=== PATIENT | male | born 1980 | race Caucasian/White ===

== ENCOUNTER 2023-02-27 12:00 | Outpatient (OUT) | payer OTHER, SELFPAY ==
[2023-02-27 13:06] LABS: Basophils Percent Auto 0.7 % (0.2-2.0); Eosinophils Absolute Auto 0.2 10^3/uL (0.0-0.7); Eosinophils Percent Auto 3.3 % (0.9-7.0); Hematocrit 44.4 % (42.0-54.0); Hemoglobin 15.1 g/dL (14.0-18.0); Immature Granulocytes Abs Auto 0.01 10^3/uL (0.00-0.03); Immature Granulocytes Pct Auto 0.2 % (0.0-0.5); Lymphocytes Absolute Auto 1.3 10^3/uL (1.2-3.8); Lymphocytes Percent Auto 24.3 % (20.5-60.0); Mean Corpuscular Hemoglobin 31.5 pg (25.9-34.0); Mean Corpuscular Volume 92.5 fL (80.0-94.0); Mean Platelet Volume 11.6 fL (9.5-13.5); Monocytes Absolute Auto 0.5 10^3/uL (0.3-0.8); Monocytes Percent Auto 8.3 % (1.7-12.0); Neutrophils Absolute Auto 3.4 10^3/uL (1.4-6.5); Neutrophils Percent Auto 63.2 % (43.0-75.0); Platelet Count 170 10^3/uL (150-450); Red Cell Distribution Width 13.3 % (11.0-15.0); White Blood Count 5.4 10^3/uL (4.0-11.0)
[2023-02-27 15:49] LABS: Estimated Average Glucose 108 mg/dL; Glycohemoglobin A1C 5.4 % (4.5-6.2)
[2023-02-27 15:55] LABS: Alanine Aminotransferase 42 U/L (16-63); Albumin Globulin Ratio 1.4; Albumin Level 4.2 g/dL (3.4-5.0); Alkaline Phosphatase 66 U/L (46-116); Anion Gap 13.4; Aspartate Amino Transferase 32 U/L (15-37); BUN Creatinine Ratio 14.3; Bilirubin Total 0.4 mg/dL (0.2-1.0); Calcium 8.5 mg/dL (8.5-10.1); Carbon Dioxide 25.5 mmol/L (21.0-32.0); Chloride 102 mmol/L (98-107); Cholesterol 173 mg/dL (<=200); Estimated GFR (African America >60 (>=60); Estimated GFR (Non-African Ame >60 (>=60); Globulin 3.1 g/dL; Glucose 81 mg/dL (74-106); HDL Cholesterol 88 mg/dL (40-60); Potassium 4.9 mmol/L (3.5-5.1); Sodium 136 mmol/L (136-145); Total Protein 7.3 g/dL (6.4-8.2); Triglycerides 37 mg/dL (<=150); VLDL CHOLESTEROL 7.4 mg/dL
[2023-02-27 16:15] LABS: Prostate Specific Antigen Scrn 0.31 ng/mL (<=4.00)
== END 2023-02-27 12:01 | disposition home or self-care (01) ==
LOC: LAB 12:02
PROVIDERS: PCP Family Medicine; Visit Provider Family Medicine
DX: Z00.00 Encounter for general adult medical examination without abnormal findings (principal); Z12.5 Encounter for screening for malignant neoplasm of prostate
CPT/HCPCS: 36415; 80053; 80061; 83036; 85025; G0103

== ENCOUNTER 2023-10-28 11:07 | Outpatient (OUT) | payer OTHER, SELFPAY ==
--- NOTE | 2023-10-28 | XR_ITS ---
The [address] [address] Patient Name: LUCAS ARMENDARIZ MRN: [id number] date: 1980 Sex: M Assigned Patient Location: Current Patient Location: Accession/Order Number: [id number] Exam Date: 10/28/2023 11:15 Report Date: 10/28/2023 11:52 At the request of: MAIRE GONZALES Procedure: XR foot BRAD min 3V EXAMINATION: XR foot BARD min 3V HISTORY: BILATERAL FOOT PAIN COMPARISON: 08/07/2020 FINDINGS: RIGHT FINDINGS: BONES: Transverse lucency proximal diaphysis of the first distal phalanx with some minimal sclerosis, this appears to be complex with a component extending to the proximal articular surface. No additional fracture or dislocation. Partial flattening of the plantar arch. Evidence of removed ankle fixation hardware with a screw fragment in the distal tibia SOFT TISSUES: Negative. No visible soft tissue swelling. OTHER: Negative. LEFT FINDINGS: BONES: No acute fracture or dislocation. Partial flattening of the plantar arch. Degenerative changes with joint space narrowing and marginal osteophyte formation most significant in the midfoot SOFT TISSUES: Negative. No visible soft tissue swelling. OTHER: Negative. XR/XR foot BRAD min 3V IMPRESSION: RIGHT CONCLUSION: Subacute fracture of first distal phalanx with likely extension to the proximal articular surface LEFT CONCLUSION: No acute abnormality Electronically authenticated by: MACARIO COE Date: 10/28/2023 11:52
--- OUTSIDE RECORDS SUMMARY | 2023-10-28 11:16 | XMS_ITS ---
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 Name Role Phone ETHAN, DR CONTRERAS Admitting Unavailable ETHAN, DR CONTRERAS Attending Unavailable ETHAN, DR CONTRERAS Consulting Unavailable ETHAN, DR CONTRERAS Primary Care Unavailable BAYLEE MOORE Attending Unavailable CAROLIN, DR MACARIO Dennis Consulting Unavailable BAYLEE MOORE Admitting Unavailable ETHAN, DR CONTRERAS Primary Care Unavailable BAYLEE MOORE Consulting Unavailable ETHAN, DR CONTRERAS Primary Care Unavailable ETHAN, DR CONTRERAS Admitting Unavailable ETHAN, DR CONTRERAS Attending Unavailable ETHAN, DR CONTRERAS Consulting Unavailable CAROLIN, DR MACARIO Dennis Consulting Unavailable EILEEN MELCHOR Consulting Unavailable ETHAN, DR CONTRERAS Primary Care Unavailable ETHAN, DR CONTRERAS Admitting Unavailable ETHAN, DR CONTRERAS Attending Unavailable COCO HERNANDEZ Admitting Unavailable ETHAN, DR CONTRERAS Primary Care Unavailable COCO HERNANDEZ Attending Unavailable COCO HERNANDEZ Consulting Unavailable ETHAN, DR CONTRERAS Admitting Unavailable ETHAN, DR CONTRERAS Attending Unavailable ETHAN, DR CONTRERAS Consulting Unavailable ETHAN, DR CONTRERAS Primary Care Unavailable Baylee Ureña Unavailable NA Ureña Attending Provider [phone] ALEX LEW Attending Unavailable MIKE PERES Admitting Unavailable MIKE PERES Attending Unavailable MIKE PERES Attending Unavailable MIKE PERES Attending Unavailable MIKE PERES Attending Unavailable MIKE PERES Attending Unavailable MD Diane Davis Primary Care Provider [phone] NATAN Stratton Attending Provider [phone] BAYLEE LAWS Attending Unavailable MIKE PERES Referring Unavailable DENIS DELATORRE Attending Unavailable HUMPHREY CASTELLON Attending Unavailable MIKE PERES Referring Unavailable BRIAN CARBAJAL Attending Unavailable MIKE PERES Referring Unavailable HUMPHREY CASTELLON Attending Unavailable MIKE PERES Referring Unavailable YUMIKO BOYD Attending Unavailable MIKE PERES Referring Unavailable REJI REYNOLDS Attending Unavailable MIKE PERES Referring Unavailable Ellen Stratton Admitting Unavailable Ellen Stratton Attending Unavailable Diane Davis Primary Care Unavailable Allergies Allergy Classification Reported Allergen(s) Allergy Type Date of Onset Reaction(s) Facility Corticosteroids (1 source) predniSONE Drug Allergy 10-20-2023 [facility] Repository (2 sources) predniSONE; Translations: [PREDNISONE] Drug Allergy 03-18-2023 [facility] Repository Encounters Encounter Date Encounter Type Care Provider Facility Start: 10-21-2023 End: 10-21-2023 ambulatory DENIS DELATORRE Not Available Start: 10-20-2023 End: 10-20-2023 ambulatory MD Diane Davis Work Phone: [facility] Work Phone: Start: 10-20-2023 End: 10-20-2023 Patient encounter procedure MD Diane Davis Work Phone: [facility] Work Phone: Start: 05-14-2023 End: 05-14-2023 ambulatory MIKE Talley [facility] Start: 04-23-2023 End: 04-23-2023 ambulatory REJI REYNOLDS Not Available Start: 04-19-2023 End: 04-19-2023 ambulatory YUMIKO BOYD Not Available Start: 04-16-2023 End: 04-16-2023 ambulatory HUMPHREY CASTELLON Not Available Start: 04-13-2023 End: 04-13-2023 ambulatory MIKE Talley [facility] Start: 04-08-2023 End: 04-08-2023 ambulatory HUMPHREY CASTELLON Not Available Start: 04-02-2023 End: 04-02-2023 ambulatory BAYLEE LAWS Not Available Start: 03-29-2023 End: 03-29-2023 ambulatory MIKE Talley [facility] Start: 12-08-2022 End: 12-08-2022 ambulatory MIKE Talley [facility] Start: 09-13-2022 Office outpatient vi sit 15 minutes Baylee Ureña [facility] Start: 09-13-2022 End: 09-13-2022 ambulatory Baylee Ureña Other [facility] Other Start: 09-13-2022 End: 09-13-2022 Patient encounter procedure TEST DESK TROUBLE LOCATOR-C Baylee Ureña Work Phone: [facility] Work Phone: Start: 07-21-2022 End: 07-21-2022 ambulatory MIKE PERES [facility] Start: 05-20-2022 ambulatory ALEX LEW [facility] Start: 03-20-2022 End: 03-21-[address] DIANE DAVIS Facility:[facility] Start: 02-10-2022 End: 04-15-[address] DIANE DAVIS Facility:[facility] Start: 01-26-2022 End: 01-27-2022 ambulatory BAYLEE MOORE Facility:[facility] Start: 12-29-2021 Encounter for genera l adult medical examination without abnormal findings DR DIANE DAVIS [facility] Start: 12-27-2021 End: 12-28-[address] DIANE DAVIS Facility:[facility] Start: 12-27-2021 End: 12-28-2021 Encounter for general adult medical examination without abnormal findings DR DIANE DAVIS Facility:[facility] Start: 09-27-2021 End: 09-27-2021 ambulatory COCO HERNANDEZ Facility:[facility] Start: 05-09-2021 End: 05-09-[address] DIANE DAVIS Facility:[facility] Medications Current Medications Medication Drug Class(es) Dates Sig (Normalized) Sig (Original) 200 actuat albuterol 0.09 mg/actuat dry powder inhaler (1 source) beta2-Adrenergic Agonist Start: 10-20-2023 Albuterol Sulfate Active 1 INH INHALATION EVERY 4-6 HOURS October 20, 2023 12:00am lidocaine 0.05 mg/mg medicated patch (1 source) Antiarrhythmic, Amide Local Anesthetic Start: 09-13-2022 Lidocaine 5 % 1 patch remove after 12 hours Externally Once a day for 10 days August, Active Payers Date Payer Category Payer Self-pay [id number] 1980 Unknown [id number] 2.16.84 [id number] 1980 Unknown [id number] 2.16.84 0.1.019028.3.579.2.593 1980 Unknown [id number] 2.16.84 0.1.618698.3.579.2.593 1980 Unknown [id number] 2.16.84 0.1.611528.3.579.2.593 1980 Unknown [id number] 2.16.84 0.1.219727.3.579.2.593 1980 Unknown [id number] 2.16.84 0.1.923201.3.579.2.593 1980 Unknown [id number] 2.16.84 0.1.714730.3.579.2.1259 1980 Unknown [id number] 2.16.840 .1.749759.3.579.2.1259 1980 Unknown [id number] 2.16.840 .1.368163.3.579.2.9 1980 Unknown [id number] 2.16.840 .1.611174.3.579.2.1258 1980 Unknown [id number] 2.16.840 .1.680449.3.579.2.1259 1980 Unknown [id number] 2.16.840 .1.971275.3.579.2.1258 1980 Unknown [id number] 2.16.840 .1.841592.3.579.2.1259 1959 Private Health Insurance [id number] Unknown [id number] 2.16.8 40.1.982917.3.579.2.531 Plan of Treatment Date Care Activity Detail Author Start: 10-20-2023 Patient referral [facility] Work Phone: Patient referral [facility] Work Phone: XR Foot - right GE 3 Views F [facility] Problems Active Problems Problem Classification Problem Date Documented Date Episodic/Chronic Fracture of lower limb (2 sources) Fracture of great toe ; Translations: [Displaced unspecified fracture of right great toe, initial encounter for closed fracture] 10-20-2023 Episodic Osteoarthritis (3 sources) Primary osteoarthritis, left elbow; Translations: [PRIMARY OSTEOARTHRITIS LEFT ELBOW] Onset: 03-28-2022 Chronic Other connective tissue disease (4 sources) Medial epicondylitis, left elbow; Translations: [MEDIAL EPICONDYLITIS LEFT ELBOW] Onset: 01-26-2022 Episodic Other fractures (1 source) Multiple fractures of ribs, left side, initial encounter for closed fracture Episodic Other injuries and conditions due to external causes (1 source) Injury of right foot; Translations: [Unspecified injury of right foot, initial encounter] 10-20-2023 Episodic Other lower respiratory disease (1 source) Pleurodynia Episodic Other non-traumatic joint disorders (4 sources) Pain in left elbow; Translations: [PAIN IN LEFT ELBOW] Onset: 03-20-2022 Episodic Other non-traumatic joint disorders (4 sources) Pain in unspecified elbow; Translations: [PAIN IN UNSPECIFIED ELBOW] Onset: 02-10-2022 Episodic Residual codes; unclassified (2 sources) Other specified postprocedural states; Translations: [Other specified postprocedural states] Onset: 05-14-2023 Episodic Unclassified (3 sources) CONTACT W/AND (SUSP) EXPOS COVID-19; Translations: [CONTACT W/AND (SUSP) EXPOS COVID-19] Onset: 05-15-2021 Past or Other Problems Problem Classification Problem Date Documented Da te Episodic/Chronic Other aftercare (1 source) Other joint terminal attack controller (current) drug therapy; Translations: [OTH FDC CURRENT DRUG THERAPY] Onset: 09-30-2021 Episodic Other connective tissue disease (3 sources) Pain in left finger(s); Translations: [PAIN IN LEFT FINGERS] Onset: 09-27-2021 Episodic Other screening for suspected conditions (not mental disorders or infectious disease) (1 source) Encounter for screening for malignant neoplasm of prostate; Translations: [ENC SCREEN MALIG NEOPLASM PROSTATE] Onset: 12-29-2021 Episodic Skin and subcutaneous tissue infections (1 source) Cellulitis of left finger; Translations: [CELLULITIS OF LEFT FINGER] Onset: 09-30-2021 Episodic Unclassified (1 source) CONTACT W/AND (SUSP) EXPOS COVID-19; Translations: [CONTACT W/AND (SUSP) EXPOS COVID-19] Onset: 05-09-2021 Procedures Date Procedure Procedure Detail Performing Clinician Start: 10-20-2023 X-ray of right foot MD Diane Davis Work Phone: Start: 09-13-2022 Plain chest X-ray TEST DESK TROUBLE LOCATOR-Rufina Ureña Work Phone: Start: 05-20-2022 Follow-up visit Follow-up ALEX LEW Start: 12-27-[address] COOPER DAVIS Comment on above: Performed By: #### P [facility] #### [facility] [address] [place] [address] Dr. Little Lindsay Results Test Name Value Interpretation Reference Range Facility XR foot RT min 3V*on 024 XR foot RT min 3V* [facility] [place] [address] [place] [address] XRay Report Signed Patient: Lucas Lewis MR#: [id number] : 1980 Acct:[id number] Age/Sex: 42 / M ADM Date: 10/20/23 Loc: XDUCLY Room: Type: [facility] Attending Dr: Ellen Stratton APRN Copies to: Ellen Stratton APRN Ordering Provider: Ellen Stratton APRN Date of Service: 10/20/23 XR/XR foot RT min 3V*: RIGHT FOOT PAIN RIGHT FOOT - 4 views CLINICAL HISTORY: Injury to right great toe last night. Now with pain and bruising COMPARISON: None FINDINGS: Soft tissue swelling is seen involving the first digit with a minimally displaced fracture involving the distal phalanx of the first digit. No additional fractures are seen. Retained hardware is seen involving the distal tibia. XR/XR foot RT min 3V* IMPRESSION: MINIMALLY DISPLACED FRACTURE DISTAL PHALANX FIRST DIGIT. Impression dictated by: Keshav Her Jr., D.OSasha10/20/2023 4:45 PM Dictation Location: [place] [address] Transcribed By: [facility] 10/20/231644 Dictated By: Keshav Her Jr, DO 10/20/231643 Signed By: 10/20/231644 [facility] Follow-Upon 05-14-2023 Follow-Up [id number] Lucas Lewis 1980 M Date Provider Department Center 05/14/2023 [facility]KE AN[facility] Family History Problem Relation Age of Onset Diabetes Mother Hypertension Father Colon cancer Father Family Status - Relation Status Age at Mother Alive Father Alive Level of Service:24786 IN POSTOP FOLLOW UP VISIT RELATED TO ORIGINAL PX (GC) Reason for Visit and Comments: Follow-up [203848] [facility] Follow-Upon 04-13-2023 Follow-Up [id number] Lucas Lewis 1980 M Date Provider Department Center 04/13/2023 MIKE ANNA [facility] Family History Problem Relation Age of Onset Diabetes Mother Hypertension Father Colon cancer Father Family Status - Relation Status Age at Mother Alive Father Alive Level of Service:07534 IN POSTOP FOLLOW UP VISIT RELATED TO ORIGINAL PX [facility] HPon 03-29-2023 History Of Present Illness Lucas Lewis is a 42 y.o. male presenting with left elbow pain and mechanical block to extension. Failed conservative treatment. Presents for left elbow arthroscopy with extensive debridement. Past Medical History He has a past medical history of Asthma, OA (osteoarthritis), Unspecified internal derangement of left knee, and Wedge compression fracture of fourth lumbar vertebra, initial encounter for closed fracture ([facility]). Surgical History He has a past surgical history that includes Ankle surgery (Right); Hand surgery (Right); and Knee surgery (Left). Social History He reports that he has never smoked. He has never been exposed to tobacco smoke. He has never used smokeless tobacco. He reports current alcohol use. He reports that he does not use drugs. Family History Family History Problem Relation Name Age of Onset Diabetes Mother Hypertension Father Colon cancer Father Allergies Prednisone Medications Medications Prior to Admission Medication Sig Dispense Refill Last Dose albuterol 90 mcg/actuation inhaler Inhale 2 puffs every 4 (four) hours if needed. 03/29/2023 Review of Systems Last Recorded Vitals Visit Vitals BP 125/81 Pulse 70 Temp 36.1 ???C (97 ???F) (Temporal) Resp 18 Ht 1.829 m (6') Wt 96 kg (211 lb 10.3 oz) SpO2 94% BMI 28.70 kg/m??? Smoking Status Never BSA 2.21 m??? Physical Exam Left elbow: Skin intact ROM: 20 degrees short of full extension. Near full flexion and pronosupination Strength: 5/5 biceps, triceps Grossly stable Sensation intact to light touch distally Relevant Imaging Results Where: [place] Date: 05/01/2022 MRI left elbow: No obvious loose body appreciated in the elbow joint. There are some mild degenerative changes about the elbow and a large osteophyte about the olecranon. There does appear to be a chondral irregularity about the capitellum which could present a chondral defect Assessment/Plan Principal Problem: Primary osteoarthritis, left elbow Plan: To OR for left elbow arthroscopy, extensive debridement [facility] NURSNOTEon 03-29-2023 NURSNOTE Discharge instructions reviewed with patient father at bedside. All questions answered at this time. Nara Muniz RN PACU Normal [facility] OPNOTEon 03-29-2023 OPNOTE ELBOW ARTHROSCOPY, EXTENSIVE DEBRIDEMENT (L) Operative Note Date: 03/29/2023 Location: [facility] OR Name: Lucas Lewis : 1980, Diagnosis Pre-op Diagnosis * Primary osteoarthritis, left elbow [M19.022] Post-op Diagnosis * Primary osteoarthritis, left elbow [M19.022] Procedures Left elbow arthroscopy, debridement of radiocapitellar joint, debridement of posterior compartment, excision of olecranon and distal humerus (anterior and posterior) osteophytes ELBOW ARTHROSCOPY, EXTENSIVE DEBRIDEMENT 67510 - IN ARTHROSCOPY ELBOW SURGICAL DEBRIDEMENT EXTENSIVE Surgeons * Mike Peres - Primary Lift Driver: Georges Alfonso MD - resident Procedure Summary Anesthesia: General ASA: I Estimated Blood Loss: Minimal Total IV Fluids: per anesthesia record Drains: * None in log * Staff: Trust Manager Assistant: Shila Felix RN Scrub Person: Susan Díaz Fanniepriscilla Trust Manager Assistant: HEYDI RAMOS Indications: Lucas Lewis is an 42 y.o. male who is having surgery for Primary osteoarthritis, left elbow [M19.022]. Main complaint is loss of terminal extension with pain associated. Failed conservative treatment. Exam shows range of motion 20 degrees from full extension. MRI shows significant posterior compartment osteophyte blocking extension. As his main complaint is loss of extension, we discussed surgical intervention with left elbow arthroscopy, extensive debridement. Risks of bleeding, infection, damage to nerves/vessels, anesthesia, failure of repair, retear, stiffness, instability, permanent pain/dysfunction, and the need for further surgery were discussed. Alternatives to surgery were discussed. Post operative course was discussed. All questions were answered. After discussed, the patient elected to proceed. Informed consent was obtained in clinic. Procedure Details: The patient was identified in the preoperative area and the operative site was marked by myself. He was taken by anesthesia for regional nerve block and then to the operative theater and placed in the supine position where general anesthesia was induced without complication. Preoperative antibiotics were administered. He was then placed in the prone position and all bony prominences were well-padded. EPC cuffs were placed. The left upper extremity was prepped and draped in the usual sterile fashion and a proper timeout was done. We began with exsanguination of the left upper extremity and tourniquet was inflated to 250 mmHg. 30 cc of saline was used to insufflate the elbow joint. A anterior medial portal incision was made and hemostats were used to dissect soft tissue. The cannula was then advanced into the anterior compartment of the elbow joint. Under spinal needle guidance an anterior lateral portal incision was made and cannula was advanced. Diagnostic arthroscopy was undertaken. The radiocapitellar joint was visualized and there was full-thickness chondral loss of the majority of the proximal radial head. There was fraying of the capitellum. Mechanical shaver was utilized to debride the fraying back to stable edges. We then visualized the lateral compartment and there was no significant osteophyte of the coronoid. There was an osteophyte of the distal humerus anteromedially and a bur was used to debride this. We then turned our attention to the posterior compartment. Posterior central portal incision was made and camera was advanced. We visualized the olecranon which had significant osteophyte blocking extension. There is also significant osteophyte of the olecranon fossa which was impeding full extension. A posterior lateral lateral accessory portal was made under spinal needle guidance and a bur was utilized to debride the osteophytes of the olecranon and the olecranon fossa and this improved range of motion significantly. Bony debris was removed. At this point the elbow was drained of excess fluid all instruments were removed. The portal incisions were closed with Novafil suture sterile dressing was placed. Tourniquet was deflated. The patient was returned to the supine position extubated without complication taken to PACU in stable condition. All needle sponge counts were correct x2 paraspinals, participated all critical portions of the procedure available otherwise to assist. Postoperative course: Patient be discharged home, weightbearing as tolerated to the left upper extremity. Be given [place] for pain control. We will start physical therapy in 4 days for range of motion and strengthening. I will see him back in clinic for suture removal and 7 to 10 days. Findings: radiocapitellar arthritis, osteophyte of the anterior humerus, olecranon, olecranon fossa Complications: None; patient tolerated the procedure well. Disposition: PACU - hemodynamically stable. Condition: stable Mike Peres [facility] POCT GLUCOSE METER UNSOLICIT ED RESULTSon 03-29-2023 Glucose [Mass/Vol] 91 mg/dL Normal 70-105 [facility] Comment on above: Order Comment: Waive d Testing in the ED is performed under the ED CLIA certificate #[id number]. Result Comment: ngro [place] Performed By: #### L [id number] ####[facility] [place] [address] Orders Onlyon 03-22-2023 Orders Only [id number] Lucas Lewis 1980 M Date Provider Department Center 03/22/2023 Alex-MIKE PERES [facility] Family History Problem Relation Age of Onset Diabetes Mother Hypertension Father Colon cancer Father Family Status - Relation Status Age at Mother Alive Father Alive [facility] Follow-Upon 12-08-2022 Follow-Up [id number] Lucas Lewis 1980 M Date Provider Department Center 12/08/2022 Alex-MIKE PERES [facility] Family History Problem Relation Age of Onset Diabetes Mother Hypertension Father Colon cancer Father Family Status - Relation Status Age at Mother Alive Father Alive Level of Service:08974 IN OFFICE/OUTPATIENT ESTABLISHED MOD MDM 30-39 MIN (57,GC) Reason for Visit and Comments: Pre-op Visit [558] [facility] XR ribs LT min 3V w CXR1V*on 09-13-2022 XR ribs LT min 3V w CXR1V* [facility] BTC.sx Other XR ribs LT min 3V w CXR1V* [facility] BTC.sx Other XR ribs LT min 3V w CXR1V* [address] [place] [address] BTC.sx Other XR ribs LT min 3V w CXR1V* [place] [address] BTC.sx Other XR ribs LT min 3V w CXR1V* XRay Report BTC.sx Other XR ribs LT min 3V w CXR1V* Signed BTC.sx Other XR ribs LT min 3V w CXR1V* Patient: Lucas Lewis MR#: [id number] BTC[employer]sx Other XR ribs LT min 3V w CXR1V* : 1980 Acct:[id number] BTC.sx Other XR ribs LT min 3V w CXR1V* Age/Sex: 41 / M ADM Date: 09/13/22 BTC.sx Other XR ribs LT min 3V w CXR1V* Loc: XDUCLY Room: Type: [facility] BTC.sx Other XR ribs LT min 3V w CXR1V* Attending Dr: Baylee Ureña TEST DESK TROUBLE LOCATOR-C BTC.sx Other XR ribs LT min 3V w CXR1V* Copies to: NA Figueredo BTC.sx Other XR ribs LT min 3V w CXR1V* Ordering Provider: NA Figueredo BTC.sx Other XR ribs LT min 3V w CXR1V* Date of Service: 09/13/22 BTC.sx Other XR ribs LT min 3V w CXR1V* XR/XR ribs LT min 3V w CXR1V*: LEFT RIB PAIN BTC.sx Other XR ribs LT min 3V w CXR1V* XR ribs LT min 3V w CXR1V* 09/13/2022 2:14 PM BTC.sx Other XR ribs LT min 3V w CXR1V* SIGNS AND SYMPTOMS: Fall onto left side, pain over the anterior and lateral left lower ribs BTC.sx Other XR ribs LT min 3V w CXR1V* PROTOCOL: Frontal radiograph of the chest with oblique radiographs of the left ribs BTC.sx Other XR ribs LT min 3V w CXR1V* COMPARISON: None BTC.sx Other XR ribs LT min 3V w CXR1V* FINDINGS: BTC.sx Other XR ribs LT min 3V w CXR1V* The trachea is midline. The heart and mediastinal structures are within normal limits. The lung BTC.sx Other XR ribs LT min 3V w CXR1V* parenchyma is clear. Minimally displaced fractures are noted along the anterior aspects of the left BTC.sx Other XR ribs LT min 3V w CXR1V* ninth through 11th ribs near the costochondral junction. BTC.sx Other XR ribs LT min 3V w CXR1V* XR/XR ribs LT min 3V w CXR1V* BTC.sx Other XR ribs LT min 3V w CXR1V* IMPRESSION: BTC.sx Other XR ribs LT min 3V w CXR1V* Minimally displaced fractures are noted along the anterior aspects of the left ninth through 11th BTC.sx Other XR ribs LT min 3V w CXR1V* ribs near the costochondral junction. BTC.sx Other XR ribs LT min 3V w CXR1V* Impression dictated by: Zachariah Krause M.D.09/13/2022 2:22 PM BTC.sx Other XR ribs LT min 3V w CXR1V* Dictation Location: [place] [address] BTC.sx Other XR ribs LT min 3V w CXR1V* Transcribed By: PWS 09/13/22 [facility] BTC.sx Other XR ribs LT min 3V w CXR1V* Dictated By: Zachariah Krause II, MD 09/13/22 [facility] BTC.sx Other XR ribs LT min 3V w CXR1V* Signed By: BTC.sx Other XR ribs LT min 3V w CXR1V* 09/13/22 [facility] BTC.sx Other Office Visiton 07-21-2022 Follow-up visit [id number] Lucas Lewis 1980 M Date Provider Department Center 07/21/2022 MIKE ANNA [facility] Family History Problem Relation Age of Onset Diabetes Mother Hypertension Father Colon cancer Father Family Status - Relation Status Age at Mother Alive Father Alive Level of Service:06730 IN OFFICE/OUTPATIENT ESTABLISHED MOD MDM 30-39 MIN (25,GC) Reason for Visit and Comments: Pain [136] Normal [facility] 36on 06-22-2022 36 Pt called stated he has not heard anything yet from Dr. Peres and wants to know what to do [facility] 36on 06-01-2022 36 Pt notified [facility] 36on 05-29-2022 36 Pt called wanting to know what his next step of care would be? [facility] Telephoneon 05-29-2022 Telephone [id number] Lucas Lewis 1980 M Date Provider Department Center 05/29/2022 [facility] Family History Problem Relation Age of Onset Diabetes Mother Hypertension Father Colon cancer Father Family Status - Relation Status Age at Mother Alive Father Alive Reason for Visit and Comments: plan of care [Other] [facility] Follow-Upon 05-20-2022 Follow-Up [id number] DebbieLucas 1980 M Date Provider Department Center 05/20/2022 ALEX TOMLINSON MP ORTHO MPORTHO Family History Problem Relation Age of Onset Diabetes Mother Hypertension Father Colon cancer Father Family Status - Relation Status Age at Mother Alive Father Alive Level of Service:06835 IN OFFICE/OUTPATIENT NEW LOW MDM 30-44 MINUTES Reason for Visit and Comments: Follow-up [705994] [facility] MRI ELBOW LT WO CONon 2021 MRI ELBOW LT WO CON EXAM: MRI ELBOW LT WO CON HISTORY: Pain of left elbow joint COMPARISON: Left elbow radiographs 01/26/2022 TECHNIQUE: Multiplanar, multisequence MRI of the left elbow without contrast. FINDINGS: TENDONS: Common flexor and common extensor tendons are intact. Distal biceps, brachialis, and distal triceps tendons are intact. LIGAMENTS: Anterior and posterior bands of the ulnar collateral ligament are intact. The radial collateral and lateral ulnar collateral ligaments are intact. MUSCULATURE: Normal in bulk and signal characteristics. OSSEOUS STRUCTURES AND JOINT: No acute fracture or malalignment. No bone lesion or suspicious bone marrow edema. Moderate osteoarthritis of the elbow joint with marginal osteophytes, bony remodeling, and asymmetric joint space loss most significant within the radiocapitellar joint where there is near complete cartilage loss and underlying subchondral sclerosis of the capitellum as well as subchondral bone marrow edema both within the capitellum and radial head and neck. Associated elbow joint effusion, likely reactive to osteoarthritic changes. SOFT TISSUES: No significance soft tissue edema or swelling. No focal fluid collection or soft tissue mass. NEUROVASCULAR: The ulnar nerve demonstrates normal caliber, and signal characteristics. Median and radial nerves demonstrate normal course, caliber, and signal characteristics. MISCELLANEOUS: None. IMPRESSION: Moderate osteoarthritis of the elbow joint, advanced for patient's age. Supporting ligaments and tendons of the elbow are intact. Electronically authenticated by: EILEEN MELCHOR Date: 2022-03-25 22:09 Normal [facility] XR FOREIGN BODY EYEon 2021 XR FOREIGN BODY EYE EXAMINATION: XR FOREIGN BODY EYE HISTORY: Foreign body in eye COMPARISON: No relevant comparison available. FINDINGS: ORBITS: Negative for a metallic foreign body. OTHER: Negative. IMPRESSION: No metallic foreign body in the orbits Electronically authenticated by: MACARIO COE Date: 2022-03-20 08:50 Normal [facility] CBC AUTO DIFFon 12-27-2021 BASO # 0.0 103/ul Normal 0.0-0.1 [facility] Comment on above: Performed By: #### C BC #### [facility] [address] [address] [address] Little Lindsay Basophils/100 WBC (Bld) 0.6 % Normal 0.2-2.0 [facility] Comment on above: Performed By: #### C BC #### [facility] [address] [address] [address] Little Lindsay EO # 0.0 103/ul Normal 0.0-0.7 [facility] Comment on above: Performed By: #### C BC #### [facility] [address] [address] [address] Little Lindsay Eosinophils/100 WBC (Bld) 0.5 % Critically low 0.9-7.0 [facility] Comment on above: Performed By: #### C BC #### [facility] [address] [place] [address] Dr. Little Lindsay Erythrocyte distribution width (RBC) [Ratio] 14.2 % Normal 11.0-15.0 [facility] Comment on above: Performed By: #### C BC #### [facility] [address] [place] [address] Dr. Little Lindsay Hematocrit (Bld) [Volume fraction] 44.6 % Normal 42.0-54.0 [facility] Comment on above: Performed By: #### C BC #### [facility] [address] [place] [address] Dr. Little Lindsay Hemoglobin (Bld) [Mass/Vol] 14.8 g/dL Normal 14.0-18.0 [facility] Comment on above: Performed By: #### C BC #### [facility] [address] [place] [address] Dr. Little Lindsay IG # 0.03 10e3/ul Normal 0.00-0.03 [facility] Comment on above: Performed By: #### C BC #### [facility] [address] [place] [address] Dr. Little Lindsay IG % 0.5 % Normal 0.0-0.5 [facility] Comment on above: Performed By: #### C BC #### [facility] [address] [place] [address] Dr. Little Lindsay LYMPH # 1.6 103/ul Normal 1.2-3.8 [facility] Comment on above: Performed By: #### C BC #### [facility] [address] [place] [address] Dr. Littel Lindsay Lymphocytes/100 WBC (Bld) 24.6 % Normal 20.5-60.0 [facility] Comment on above: Performed By: #### C BC #### [facility] [address] [place] [address] Dr. Little Lindsay MANUAL DIFF REQ NO Normal [facility] Comment on above: Performed By: #### C BC #### [facility] [address] [place] [address] Dr. Little Lindsay MCH (RBC) [Entitic mass] 30.8 pg Normal 25.9-34.0 [facility] Comment on above: Performed By: #### C BC #### [facility] [address] [place] [address] Dr. Little Lindsay MCHC (RBC) [Mass/Vol] 33.2 g/dL Normal 29.9-35.2 [facility] Comment on above: Performed By: #### C BC #### [facility] [address] [place] [address] Dr. Little Lindsay MCV (RBC) [Entitic vol] 92.9 fL Normal 80.0-94.0 [facility] Comment on above: Performed By: #### C BC #### [facility] [address] [place] [address] Dr. Little Lindsay MONO # 0.5 103/ul Normal 0.3-0.8 [facility] Comment on above: Performed By: #### C BC #### [facility] [address] [place] [address] Dr. Little Lindsay Monocytes/100 WBC (Bld) 6.8 % Normal 1.7-12.0 [facility] Comment on above: Performed By: #### C BC #### [facility] [address] [place] [address] Dr. Little Lindsay NEUT # 4.4 103/ul Normal 1.4-6.5 [facility] Comment on above: Performed By: #### C BC #### [facility] [address] [place] [address] Dr. Little Lindsay Neutrophils/100 WBC (Bld) 67.0 % Normal 43.0-75.0 [facility] Comment on above: Performed By: #### C BC #### [facility] [address] [place] [address] Dr. Little Lindsay Platelet mean volume (Bld) [Entitic vol] 10.8 fL Normal 9.5-13.5 [facility] Comment on above: Performed By: #### C BC #### [facility] [address] [place] [address] Dr. Little Lindsay PLT 187 103/ul Normal 150-450 [facility] Comment on above: Performed By: #### C BC #### [facility] [address] [address] [address] Little Lindsay RBC 4.80 106/ul Normal 4.70-6.10 [facility] Comment on above: Performed By: #### C BC #### [facility] [address] [place] [address] Dr. Little Lindsay WBC 6.6 103/ul Normal 4.0-11.0 [facility] Comment on above: Performed By: #### C BC #### [facility] [address] [place] [address] Dr. Little Lindsay GLYCOHEMOGLOBIN A1Con 2021 ADA RECOMMENDATION SEE BELOW Normal [facility] Comment on above: Result Comment: ADA RECOMMENDED LIMIT 4.0 - 6.0 ADA THERAPEUTIC TARGET < 7.0 ACTION SUGGESTED > 7.0 Performed By: #### A 1C #### [facility] [address] [place] [address] Dr. Little Lindsay Glucose [Mass/Vol] 111 mg/dL Normal [facility] Comment on above: Performed By: #### A 1C #### [facility] [address] [place] [address] Dr. Little Lindsay HbA1c (Bld) [Mass fraction] 5.5 % Normal 4.5-6.2 [facility] Comment on above: Performed By: #### A 1C #### [facility] [address] [place] [address] Dr. Little Lindsay LIPID PROFILEon 12-27-2021 CHOL-HDL RATIO NORM SEE BELOW Normal [facility] Comment on above: Result Comment: 3.3 - 4.4 LOW RISK 4.4 - 7.1 AVERAGE RISK 7.1 - 11.0 MODERATE RISK >11.0 HIGH RISK Performed By: #### L IPID, CMP, URIC #### [facility] [address] [place] [address] Dr. Little Lindsay Cholesterol [Mass/Vol] 195 mg/dL Normal <=200 [facility] Comment on above: Performed By: #### L IPID, CMP, URIC #### [facility] [address] [place] [address] Dr. Little Lindsay Cholesterol in HDL [Mass/Vol] 106 mg/dL Critically high 40-60 [facility] Comment on above: Performed By: #### L IPID, CMP, URIC #### [facility] [address] [address] [address] Little Lindsay Cholesterol in LDL [Mass/Vol] 83.2 mg/dL Normal [facility] Comment on above: Performed By: #### L IPID, CMP, URIC #### [facility] [address] [address] [address] Little Lindsay Cholesterol.total/Ch olesterol in HDL [Mass ratio] 1.8 {ratio} Normal [facility] Comment on above: Performed By: #### L IPID, CMP, URIC #### [facility] [address] [address] [address] Little Lindsay HDL NORMAL > or = 60 mg/dl - LOW CARDIOVASCULAR RISK <40 mg/dl - HIGH CARDIOVASCULAR RISK Normal [facility] Comment on above: Performed By: #### L IPID, CMP, URIC #### [facility] [address] [address] [address] Little Lindsay LDL CALC NORMAL SEE BELOW Normal [facility] Comment on above: Result Comment: <100 mg/dl OPTIMAL 100 - 129 mg/dl NEAR OR ABOVE OPTIMAL 130 - 159 mg/dl BORDERLINE HIGH 160 - 189 mg/dl HIGH >190 mg/dl VERY HIGH Performed By: #### L IPID, CMP, URIC #### [facility] [address] [address] [address] Little Lindsay Triglyceride [Mass/Vol] 29 mg/dL Normal <=150 [facility] Comment on above: Performed By: #### L IPID, CMP, URIC #### [facility] [address] [address] [address] Little Lindsay VLDL CALC 5.8 mg/dL Normal [facility] Comment on above: Performed By: #### L IPID, CMP, URIC #### [facility] [address] [address] [address] Little Lindsay PROF 14(COMP METB)on 022 Albumin [Mass/Vol] 4.3 g/dL Normal 3.4-5.0 [facility] Comment on above: Performed By: #### L IPID, CMP, URIC #### [facility] [address] [address] [address] Little Lindsay Albumin/Globulin [Mass ratio] 1.3 {ratio} Normal [facility] Comment on above: Performed By: #### L IPID, CMP, URIC #### [facility] [address] [address] [address] Little Lindsay ALP [Catalytic activity/Vol] 67 U/L Normal 46-116 [facility] Comment on above: Performed By: #### L IPID, CMP, URIC #### [facility] [address] [place] [address] Dr. Little Lindsay ALT [Catalytic activity/Vol] 42 U/L Normal 16-63 [facility] Comment on above: Performed By: #### L IPID, CMP, URIC #### [facility] [address] [address] [address] Little Lindsay Anion gap [Moles/Vol] 10.5 mmol/L Normal [facility] Comment on above: Performed By: #### L IPID, CMP, URIC #### [facility] [address] [place] [address] Dr. Little Lindsay AST [Catalytic activity/Vol] 22 U/L Normal 15-37 [facility] Comment on above: Performed By: #### L IPID, CMP, URIC #### [facility] [address] [address] [address] Little Lindsay Bilirubin [Mass/Vol] 0.4 mg/dL Normal 0.2-1.0 [facility] Comment on above: Performed By: #### L IPID, CMP, URIC #### [facility] [address] [place] [address] Dr. Little Lindsay Calcium [Mass/Vol] 9.1 mg/dL Normal 8.5-10.1 [facility] Comment on above: Performed By: #### L IPID, CMP, URIC #### [facility] [address] [address] [address] Little Lindsay Chloride [Moles/Vol] 102 mmol/L Normal 98-107 [facility] Comment on above: Performed By: #### L IPID, CMP, URIC #### [facility] [address] [address] [address] Little Lindsay CO2 [Moles/Vol] 28.0 mmol/L Normal 21.0-32.0 [facility] Comment on above: Performed By: #### L IPID, CMP, URIC #### [facility] [address] [address] [address] Little Lindsay Creatinine [Mass/Vol] 0.82 mg/dL Normal 0.70-1.30 [facility] Comment on above: Performed By: #### L IPID, CMP, URIC #### [facility] [address] [address] [address] Little Lindsay EGFR-AF SWEDISH 125 mL/min/1.73m2 Normal >=60 [facility] Comment on above: Performed By: #### L IPID, CMP, URIC #### [facility] [address] [address] [address] Little Lindsay EGFR-NON AF SWEDISH 104 mL/min/1.73m2 Normal >=60 [facility] Comment on above: Performed By: #### L IPID, CMP, URIC #### [facility] [address] [address] [address] Little Lindsay Globulin (S) [Mass/Vol] 3.2 g/dL Normal [facility] Comment on above: Performed By: #### L IPID, CMP, URIC #### [facility] [address] [address] [address] Little Lindsay Glucose [Mass/Vol] 107 mg/dL Critically high 74-106 [facility] Comment on above: Performed By: #### L IPID, CMP, URIC #### [facility] [address] [address] [address] Little Lindsay Potassium [Moles/Vol] 4.5 mmol/L Normal 3.5-5.1 [facility] Comment on above: Performed By: #### L IPID, CMP, URIC #### [facility] [address] [place] [address] Dr. Little Lindsay Protein [Mass/Vol] 7.5 g/dL Normal 6.4-8.2 [facility] Comment on above: Performed By: #### L IPID, CMP, URIC #### [facility] [address] [place] [address] Dr. Little Lindsay Sodium [Moles/Vol] 136 mmol/L Normal 136-145 [facility] Comment on above: Performed By: #### L IPID, CMP, URIC #### [facility] [address] [place] [address] Dr. Little Lindsay Urea nitrogen [Mass/Vol] 15.0 mg/dL Normal 7.0-18.0 [facility] Comment on above: Performed By: #### L IPID, CMP, URIC #### [facility] [address] [place] [address] Dr. Little Lindsay Urea nitrogen/Creatinine [Mass ratio] 18.3 mg/mg Normal [facility] Comment on above: Performed By: #### L IPID, CMP, URIC #### [facility] [address] [place] [address] Dr. Little Lindsay URIC ACID SERUMon 12-27-2021 Urate [Mass/Vol] 3.5 mg/dL Normal 3.5-7.2 [facility] Comment on above: Performed By: #### L IPID, CMP, URIC #### [facility] [address] [place] [address] Dr. Little Lindsay [facility]on SARS-CoV-2 (COVID-19) RNA EBEN+probe Ql (Unsp spec) Not detected Normal NOT DETECTED [facility] Comment on above: Result Comment: This test is not yet approved or cleared by the [place] FDA. When there are no FDA-approved or cleared tests available, and other criteria are met, FDA can make tests available under an emergency access mechanism called an Emergency Use Authorization (EUA). The EUA for this test is supported by the [place] of Health and Human Service's (HHS's) declaration that circumstances exist to justify the emergency use of in vitro diagnostics for the detection and/or diagnosis of the virus that causes COVID-19. This EUA will remain in effect (meaning this test can be used) for the duration of the COVID-19 declaration justifying emergency of IVDs, unless it is terminated or revoked by FDA (after which the test may no longer be used). When diagnostic testing is negative, the possibility of a false negative should be considered in the context of a patient's recent exposures and the presence of clinical signs and symptoms consistent with SARS-CoV-2. Performed By: #### C [facility] #### [facility] [address] [place] [address] Dr. Little Lindsay Social History Date Type Detail Facility Start: 06-12-2017 Tobacco smoking status NHIS Never smoked tobacco (finding) [facility] Start: 1980 Sex Assigned At Male F [facility] Unknown if ever smoked [facility] Other Sex Assigned At Sex Assigned At Bir th [facility] [employer] Other Vital Signs Date Time Vital Sign Value Performing Clinician Facility 10-20-2023 16:17-0400 Body height 182.88 cm MD Diane Davis Work Phone: [facility] 10-20-2023 16:17-0400 Body mass index (BMI) [Ratio] 27.8 kg/m2 MD Diane Davis Work Phone: [facility] 10-20-2023 16:17-0400 Body temperature 98.6 [degF] MD Diane Davis Work Phone: [facility] 10-20-2023 16:17-0400 Body weight 92.98 kg MD Diane Davis Work Phone: [facility] 10-20-2023 16:17-0400 Diastolic blood pressure 80 mm[Hg] MD Diane Davis Work Phone: [facility] 10-20-2023 16:17-0400 Heart rate 70 /min MD Diane Davis Work Phone: [facility] 10-20-2023 16:17-0400 Respiratory rate 16 /min MD Diane Davis Work Phone: [facility] 10-20-2023 16:17-0400 SaO2% (BldA) [Mass fraction] 97 % MD Diane Davis Work Phone: [facility] 10-20-2023 16:17-0400 Systolic blood pressure 127 mm[Hg] MD Diane Davis Work Phone: [facility] 09-13-2022 14:35-0400 Body height 182.88 cm Baylee Adelita Other [email or web address] Other 09-13-2022 14:35-0400 Body mass index (BMI) [Ratio] 29.35 kg/m2 Baylee Adelita Other [facility] Other 09-13-2022 14:35-0400 Body temperature 97.8 [degF] Baylee Adelita Other [facility] Other 09-13-2022 14:35-0400 Body weight 98.16 kg Baylee Adelita Other [facility] Other 09-13-2022 14:35-0400 Diastolic blood pressure 83 mm[Hg] Baylee Adelita Other [facility] Other 09-13-2022 14:35-0400 Respiratory rate 18 /min Baylee Adelita Other [email or web address] Other 09-13-2022 14:35-0400 SaO2% (BldA) [Mass fraction] 97 % Baylee Adelita Other [facility] Other 09-13-2022 14:35-0400 Systolic blood pressure 128 mm[Hg] Baylee Ureña Other [facility] [employer] Other Clinical Notes 01-26-2022 to 05-14-2023 Note Date & Type Note Facility 05-14-2023 Note Post-Operative Follo w-up: Patient here for post-op follow-up. Patient is about 7 weeks status post LEFT elbow arthroscopy, extensive debridement. Pain is 0. Pain is improved. Weight bearing status: full. 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 He states his main complaint which has been present since surgery is a tender achiness that occurs over the mobile wad of the left forearm, not present at rest, occurs if moving the elbow after not moving it for a long time or with heavier exertion. Current treatment is physical therapy DOS: 03/29/23 Surgery Procedure: left elbow arthroscopy, extensive debridement Constitutional Fever:no Drainage:no Redness:no Increased Swelling:no Physical Exam Inspection: effusion mild ROM: 5-150. Some crepitation with motion No pain reproduced at the mobile wad with resisted long finger extension, no pain with resisted supination, No TTP over the lateral epicondyle Strength: 5/5 biceps, triceps Stability: grossly stable Neurovascularly intact Incision clean, dry, intact Diagnosis Plan 1. Primary osteoarthritis, left elbow 2. History of arthroscopic surgery of elbow Lucas is a 42 year old male about 7 weeks s/p left elbow arthroscopy, extensive debridement, overall doing well. 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 -RTC on as needed basis if issues/concerns down the road Camilo Rush MD Orthopaedic Surgery, PGY-V 05/14/2023 Mike Peres MD By using the attestations below, the signing clinician agrees that I have read and verify that the documentation has been personally reviewed by me and ensure that the documentation accurately reflects the encounter. GC: I personally saw this patient on the day of the encounter, performed the escobar portion(s) of the service and participated in the management and confirm the resident's documentation. Please note there may be an additional personal documentation from me. Mike Peres MD [facility] 04-13-2023 Note Post-Operative Follo w-up: Patient here for post-op follow-up. Patient is 2 weeks status post left elbow arthroscopy, extensive debridement. Pain is 0. Pain is improved. Weight bearing status: full. Current treatment is physical therapy, val wrap. DOS: 03/29/23 Surgery Procedure: left elbow arthroscopy, extensive debridement Constitutional Fever:no Drainage:no Redness:no Increased Swelling:no Physical Exam Inspection: effusion moderate ROM: 10-150. Some crepitation with motion Stability: grossly stable Neurovascularly intact Incision clean, dry, intact. Diagnosis Plan 1. Primary osteoarthritis, left elbow Lucas is a 42 year old male 2 weeks s/p left elbow arthroscopy, extensive debridement, overall doing well. Plan Discussed clinical findings and arthroscopic images with patient Continue physical therapy per protocol Follow up one month IMike, personally performed the face to face evaluation on this patient. I discussed with the patient and confirmed the accuracy and completeness of the aforementioned history prepared by the advance practice provider, and I personally performed the clinical examination of the patient. I discussed the treatment plan with the patient. Mike Peres MD [facility] 03-29-2023 Note Patient: Lucas Lewis Procedure Summary Date: 03/29/23 Room / Location: [facility] OR [address] [place] [address] GIS OR Anesthesia Start: 728 Anesthesia Stop: 903 Procedure: ELBOW ARTHROSCOPY, EXTENSIVE DEBRIDEMENT (Left: Elbow) Diagnosis: Primary osteoarthritis, left elbow (Primary osteoarthritis, left elbow [M19.022]) Surgeons: Mike Peres MD Responsible Provider: Jane Cassidy MD Anesthesia Type: general, regional ASA Status: 1 Anesthesia Type: general, regional Vitals Value Taken Time BP 129/82 03/29/23 0930 Temp 36.2 ???C (97.2 ???F) 03/29/23 0900 Pulse 75 03/29/23 0930 Resp 18 03/29/23 0930 SpO2 100 % 03/29/23929 Anesthesia Post Evaluation Patient location during evaluation: PACU Patient participation: complete - patient participated Level of consciousness: awake Pain score: 0 Pain management: adequate Airway patency: patent Cardiovascular status: acceptable Respiratory status: acceptable Patient is hemodynamically stable and is able to be discharged from PACU per anesthesia protocol. No notable events documented. [facility] 03-29-2023 Note Patient: Lucas Lewis Procedure Summary Date: 03/29/23 Room / Location: [address] OR Anesthesia Start: 728 Anesthesia Stop: Procedure: ELBOW ARTHROSCOPY, EXTENSIVE DEBRIDEMENT (Left: Elbow) Diagnosis: Primary osteoarthritis, left elbow (Primary osteoarthritis, left elbow [M19.022]) Surgeons: Mike Peres MD Responsible Provider: Jane Cassidy MD Anesthesia Type: general, regional ASA Status: 1 Anesthesia Post Transport [facility] room air Patient Monitor: direct observation Transport: uneventful Patient condition is: stable [facility] 03-29-2023 Note Airway Date/Time: 03/29/2023 7:35 AM Urgency: elective General Information and Staff Patient location during procedure: OR Anesthesiologist: Jane Cassidy MD Resident/DEMURRAGE CLERK/CAA: TALISHA Estrada Performed: resident/DEMURRAGE CLERK/CAA Indications and Patient Condition Indications for airway management: anesthesia and airway protection Spontaneous Ventilation: absent Sedation level: deep Preoxygenated: yes Mask difficulty assessment: 1 - vent by mask Final Airway Details Final airway type: endotracheal airway Successful airway: ETT Cuffed: yes Successful intubation technique: direct laryngoscopy Endotracheal tube insertion site: oral Blade: Chilo Blade size: #4 ETT size (mm): 7.5 Cormack-Lehane Classification: grade I - full view of glottis Placement verified by: chest auscultation and capnometry Measured from: lips ETT to lips (cm): 23 Number of attempts at approach: 1 Number of other approaches attempted: 0 [facility] 03-29-2023 Note Peripheral Block Patient location during procedure: pre-op Start time: 03/29/2023 6:58 AM End time: 03/29/2023 7:14 AM Reason for block: at surgeon's request and post-op pain management Staffing Performed: resident/DEMURRAGE CLERK/CAA Resident/DEMURRAGE CLERK: Sandoval Hoyt MD Preanesthetic Checklist Completed: patient identified, IV checked, site marked, risks and benefits discussed, surgical consent, monitors and equipment checked, pre-op evaluation and timeout performed Peripheral Block Patient position: supine Prep: ChloraPrep Patient monitoring: continuous pulse ox Block type: supraclavicular brachial plexus Laterality: left Injection technique: single-shot Guidance: ultrasound guided Needle Needle gauge: 22 G Needle length: 2 in Needle localization: ultrasound guidance Medications Administered bupivacaine HCl (Marcaine) 0.5 % (5 mg/mL) injection - injection 150 mg - 03/29/2023 6:58:00 AM fentaNYL (SUBLIMAZE) IV - intravenous 100 mcg - 03/29/2023 6:58:00 AM midazolam (VERSED) IV - intravenous 2 mg - 03/29/2023 6:58:00 AM Assessment Injection assessment: negative aspiration for heme, no paresthesia on injection and incremental injection Heart rate change: no Slow fractionated injection: yes [facility] 03-29-2023 Note Patient: Lucas Lewis Procedure Information Date/Time: 03/29/23729 Procedure: ELBOW ARTHROSCOPY, EXTENSIVE DEBRIDEMENT (Left: Elbow) Location: [facility] OR [address] [place] [address] OR Surgeons: Mike Peres MD Past Medical History: Diagnosis Date ??? Asthma ??? OA (osteoarthritis) ??? Unspecified internal derangement of left knee ??? Wedge compression fracture of fourth lumbar vertebra, initial encounter for closed fracture (CMS/HCC) Relevant Problems No relevant active problems Clinical information reviewed: Tobacco Allergies Meds Med Hx Surg Hx Fam Hx Soc Hx Physical Exam Airway Mallampati: II TM distance: >3 FB Neck ROM: full Cardiovascular - normal exam Rhythm: regular Rate: normal Dental - normal exam Pulmonary - normal exam Abdominal - normal exam Anesthesia Plan ASA 1 general and regional The patient is not a current smoker. Patient was not previously instructed to abstain from smoking on day of procedure. Patient did not smoke on day of procedure. Education provided regarding risk of obstructive sleep apnea. intravenous induction Anesthetic plan and risks discussed with patient. Plan discussed with CAA. Additional Equipment Requests [facility] 03-18-2023 Note Medications to take AM day of procedure with sips water only: inhaler Medication Hold instructions: IF YOU ARE GOING HOME AFTER YOUR SURGERY OR PROCEDURE, FOR YOUR SAFETY, YOUR SURGERY WILL BE CANCELLED IF BOTH OF THE FOLLOWING ARE NOT AVAILABLE: An adult route driver over the age of 18, that can receive information about your care after surgery, and drive you home. A responsible adult to stay with you for 24 hours in case of an emergency. Can be same as above. The highest risk of complications is within the first 24 hours after sedation/anesthesia. Nothing to eat or drink after midnight the night before surgery. This includes gum, candy, mints, and lozenges. No alcohol, marijuana, or tobacco products including vaping for 24 hours. Please brush your teeth; don't swallow the toothpaste or water. If you use dentures, wear them but do not use paste. Please leave any other removable dental hardware at home. Do not put in contact lenses. Do not wear perfume, make-up, nail lithuanian, or lotions on the day of your surgery or procedure. Follow skin-prep/wipe instructions as below if required. Bring with you: *Insurance card *Photo ID *Medication list *Co-pay for visit/prescriptions If applicable: *Rescue inhalers *Green bracelet from lab *CPAP or BiPAP machine, if staying overnight *Any braces, splints, or equipment ordered preoperatively *Remote controls for implanted devices Leave at home: *Purse/Wallet/Araiza- unless needed for co-pay *Cell phone (can leave with family/friend or place in locker if needed) *Jewelry (including piercings and wedding bands) *If not possible, ask the person who is waiting with you to keep them Children under the age of 12 will not be allowed into patient care areas. We will call you between 3pm and 4pm the day before your surgery to give you an arrival time. If you do not receive this call, have any questions, or need to make any changes, please call [phone]. Notify your surgeon if you develop any illness such as a cold, cough, fever, sore throat or vomiting between now and your surgery. Thank you for entrusting us with your care. [facility] [place] Surgical Services Team [facility] 12-08-2022 Note Subjective: Chief Complaint: left elbow pain for approximately 1.5 year HPI 12/08/2022: 41 y.o. male with left elbow osteoarthritis and potential loose body who presents with chronic left elbow pain since around early 2021. He received as CSI into left elbow joint on 07/21/2022 with no relief, he found PT aided with swelling but nothing else. He endorses pain with elbow extension activities and is unable to perform push-ups as a result. He also has a popping sensation in the elbow that occurs daily. Endorses occasional numbness, tingling of the digits of L hand when driving. He did undergo NCS/EMG around 2 years ago but cannot recall significant findings 07/21/2022: 41-year-old male presents for initial evaluation with Dr. Peres for left elbow pain after referral from Dr. Lew. The patient has had this pain and decreased range of motion for approximately 1.5 years. He states there is no precipitating trauma or event that preceded this and he notes that his range of motion has improved somewhat with physical therapy however, he does continue to have pain with pushing movements with his left elbow. He denies any numbness or tingling. He also notes a clicking/popping of the elbow which is becoming somewhat less frequent but it can be painful. 05/20/22 Lucas Lewis is a 41 y.o. year old right handed male presenting for left elbow pain. The patient began having significant throbbing pain that woke him from sleep and a popping sensation in his left elbow around 6-7 months ago. Since that time, the pain has continued but has been less disruptive. The pain is worse with activity, and better with rest. It limits his activity, particularly a pushing motion. He underwent a course of physical therapy which did not relieve his pain. 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 Social History Occupational History Not on file Tobacco Use Smoking status: Never Passive exposure: Never Smokeless tobacco: Never Vaping Use Vaping Use: Never used Substance and Sexual Activity Alcohol use: Yes Drug use: Never Sexual activity: Not on file No past medical history on file. Review of systems: Constitutional: No fever or night sweats Musculoskeletal: left elbow pain Neurological: Numbness, tingling of the digits of L hand when driving, negative phalens, tinels Physical Exam: General: No acute distress Constitutional: Grossly well-appearing Mental status: Alert and oriented Respiratory: Non-labored breathing Skin: No erythema, ecchymosis, or abrasions left elbow Exam: Inspection- No edema, erythema, gross deformity Palpation- Pain over extensor surface Cozens mildy positive, Flores mildly positive, minimal pain to palpation over bilateral extensor tendons ROM- Flexion 110 degrees Extension 10 degrees Supination 85 degrees Pronation 70 degrees Stability- Varus and valgus stability Strength- Biceps 5/5 Triceps 5/5 Vascular: Brisk capillary refill Neuro: Sensation intact to light touch distally Imaging: Where: [place] Date: 05/01/2022 MRI left elbow: No obvious loose body appreciated in the elbow joint. There are some mild degenerative changes about the elbow and a large osteophyte about the olecranon. There does appear to be a chondral irregularity about the capitellum which could present a chondral defect. 41-year-old male with left elbow osteoarthritis and associated mechanical block to motion with a possible loose body Diagnosis Plan 1. Primary osteoarthritis, left elbow Plan: -discussed clinical and imaging findings -discussed treatment options. He would like to pursue surgical intervention given his persistent pain and decreased motion despite conservative treatment. This would be left elbow arthroscopy with extensive debridement. Risks of bleeding, infection, damage to nerves/vessels, anesthesia, stiffness, instability, permanent pain/dysfunction, and the need for further surgery were discussed. Alternatives to surgery were discussed. Post operative course was discussed. All questions were answered. After discussed, the patient elected to proceed. Informed consent was obtained in clinic. - If wrist extensors continue to be painful after scope may consider referral to Dr. Lew By using the attestations below, the signing clinician agrees that I have read and verify that the documentation has been personally reviewed by me and ensure that the documentation accurately reflects the encounter. GC: I personally saw this patient on the day of the encounter, performed the escobar portion(s) of the service and participated in the management and confirm the resident's documentation. Please note there may be an additional personal documentation from me. Mike Peres MD [facility] 09-13-2022 Evaluation note Encounter Date Diagnosis Assessment Notes August, Rib pain on left side (ICD-10 - R07.81) August, Closed fracture of multiple ribs of left side, initial encounter (ICD-10 - S22.42XA) Rib fracture home care material was printed Drink plenty fluids, get plenty of rest. Use the lidocaine patches as prescribed. Take Tylenol and/or Motrin as needed for pain. Follow-up with your family doctor if no improvement in 5 to 7 days BTC.sx Other 03-21-2023 NoteSubjective: Chief Complaint: left elbow pain for 1.5 years HPI 07/21/2022: 41-year-old male presents for initial evaluation with Dr. Peres for left elbow pain after referral from Dr. Lew. The patient has had this pain and decreased range of motion for approximately 1.5 years. He states there is no precipitating trauma or event that preceded this and he notes that his range of motion has improved somewhat with physical therapy however, he does continue to have pain with pushing movements with his left elbow. He denies any numbness or tingling. He also notes a clicking/popping of the elbow which is becoming somewhat less frequent but it can be painful. 05/20/22 Lucas Lewis is a 41 y.o. year old right handed male presenting for left elbow pain. The patient began having significant throbbing pain that woke him from sleep and a popping sensation in his left elbow around 6-7 months ago. Since that time, the pain has continued but has been less disruptive. The pain is worse with activity, and better with rest. It limits his activity, particularly a pushing motion. He underwent a course of physical therapy which did not relieve his pain. 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 Previous Treatments: PT Social History Occupational History Not on file Tobacco Use Smoking status: Never Passive exposure: Never Smokeless tobacco: Never Vaping Use Vaping Use: Never used Substance and Sexual Activity Alcohol use: Yes Drug use: Never Sexual activity: Not on file No past medical history on file. Review of systems: Constitutional: No fever or night sweats Musculoskeletal: left elbow pain Neurological: Negative for tingling or numbness Physical Exam: General: No acute distress Constitutional: Grossly well-appearing Mental status: Alert and oriented Respiratory: Non-labored breathing Skin: No erythema, ecchymosis, or abrasions left Elbow Exam Skin: No erythema, ecchymosis, or abrasions ROM- Flexion: 110 degrees degrees Extension: 10 degrees, pain at full extension Pronation: 70 degrees Supination: 70 degrees Strength- Biceps 5/5 Triceps 5/5 Stability- Varus stable Valgus stable Neurological exam: Sensation intact to light touch median, radial, ulnar Vascular exam: Brisk capillary refill Imaging: Where: [facility] Date: 05/01/2022 MRI left elbow: No obvious loose body appreciated in the elbow joint. There are some mild degenerative changes about the elbow and a large osteophyte about the olecranon. There does appear to be a chondral irregularity about the capitellum which could present a chondral defect. Read and interpreted by Dr. Peres Intermediate Joint: L elbow on 07/21/2022 3:42 PM Indications: pain Details: 21 G needle, posterolateral approach Medications: 2 mg lidocaine 10 mg/mL (1 %); 2 mg triamcinolone acetonide 10 mg/mL Outcome: tolerated well, no immediate complications Consent was given by the patient. 41-year-old male with left elbow osteoarthritis and associated mechanical block to motion with a possible loose body. Plan: -Corticosteroid injection administered in the left elbow joint today - We will have him follow-up this fall after the harvest if his symptoms persist for consideration of a diagnostic left elbow scope. Abundio Armendariz, PGY3 Orthopedic Surgery Resident By using the attestations below, the signing clinician agrees that I have read and verify that the documentation has been personally reviewed by me and ensure that the documentation accurately reflects the encounter. GC: I personally saw this patient on the day of the encounter, performed the secobar portion(s) of the service and participated in the management and confirm the resident's documentation. Please note there may be an additional personal documentation from me. Mike Peres MDAshtabula [facility] Center01-18-2023 NoteOrthopedic Surgery Subjective HPI Chief complaint: Chief Complaint Patient presents with Left Elbow - Follow-up Returning patient follow up of a pre-existing problem 05/20/22 Lucas Lewis is a 41 y.o. year old right handed male presenting for left elbow pain. The patient began having significant throbbing pain that woke him from sleep and a popping sensation in his left elbow around 6-7 months ago. Since that time, the pain has continued but has been less disruptive. The pain is worse with activity, and better with rest. It limits his activity, particularly a pushing motion. He underwent a course of physical therapy which did not relieve his pain. 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 Previous Treatments: PT Patient History Past Surgical History: Procedure Laterality Date ANKLE SURGERY Right HAND SURGERY Right right pinky KNEE SURGERY Left No past medical history on file. Objective There is no height or weight on file to calculate BMI. General: No acute distress, alert, comfortable HEENT: Vision intact, NC/AT, hearing intact, speaks clearly Neck: Supple, midline Cardiovascular: Grossly well perfused Respiratory: Non-labored, good air movement, good respiratory effort Psych: Cooperative, appropriate affect Skin: Warm, dry, atraumatic, capillary refill <2s Neuro: No gross neurologic deficits Extremities: Moves spontaneously x4, atraumatic, non-edematous Focused exam of left elbow: Skin: Skin: No erythema, ecchymosis, or abrasions ROM- Flexion: limited to 120 degrees Extension: limited to 20 degrees Strength- Biceps 5/5 Triceps 5/5 Stability- Varus stable, pain with varus stress of left elbow Valgus stable Neurological exam: Sensation intact to light touch median, radial, ulnar, and axillary Vascular exam: Brisk capillary refill Imaging: Radiographs of left elbow demonstrate mild degenerative changes. MRI of left elbow demonstrates possible osteochondritis dissecans. Assessment/Plan Lucas Lewis is a 41 y.o. year old right handed male with left elbow pain present for 6-7 months. The patient has mild degenerative changes on imaging as well as possible osteochondritis dissecans. - Will consult Dr. Ramachandran or Dr. Peres for possible osteochondritis dissecans Francisco Escoto, MS3 Orthopedic Surgery [facility] Patient seen and discussed with Dr. Lew As the teaching physician, I have personally performed or re-performed the history of present illness, physical exam and medical decision-making activities of the encounter and verified the medical student's documentation. I made pertinent changes as necessary to ensure accurate documentation. Additional Comments: Agree with above. I think his symptoms and the MRI findings are consistent with an osteochondritis dissecans type lesion and possibly a loose body. I discussed him with Dr. Peres and we will get in touch with him about options for further treatment.[facility] 01-26-2022 NotePROCEDURE: XR ELBOW LT MIN 3 VIEWS COMPARISON: None. HISTORY: Medial epicondylitis FINDINGS: BONES:No acute fracture or dislocation. Degenerative changes with marginal osteophyte formation SOFT TISSUES:Negative. No visible soft tissue swelling. EFFUSION:Elbow joint effusion OTHER: Negative. IMPRESSION: Mild degenerative changes with elbow joint effusion Electronically authenticated by: MACARIO COE Date: 2022-01-26 19:59[facility] noteNo assessment information availableUniversity [facility] Work Phone: Evaluation note* Diagnosis Onset Date Resolution Status Fracture of right great toe acute [facility] Work Phone: History general Narrative - Reported* Type Description Date Surgical History fracture repair Surgical History leg fracture BTC.sx Other Summary Purpose Family History No Family History Records FoundNo Family History Records FoundNo Family History Records FoundNo Family History Records Found Advance Directives No Advanced Directives Records Found Advance Directive Response Recorded Date/ Time Advance Directives No October 27 4:39pm Chief Complaint and Reason for Visit Chief Complaint right big toe w inju ry Reason for Visit Fracture of right gr eat toe Additional Source Comments (unrecognized sect ion and content) No Status Records FoundNo Status Records FoundNo Status Records FoundNo Status Records Found INFORMATION SOURCE (unrecogn ized section and content) DATE CREATED AUTHOR 04/24/2022 [facility] DATE CREATED AUTHOR AUTHOR'S ORGANIZ ATION 05/15/2023 [facility] DATE CREATED AUTHOR AUTHOR'S ORGANIZ ATION 10/23/2023 [facility] EPIC DATE CREATED AUTHOR AUTHOR'S ORGANIZ ATION 10/24/2023 [facility] REASON FOR VISIT (unrecogniz ed section and content) LEFT RIB PAIN, Care Teams (unrecognized sec tion and content) Team Status: Inactive Member Role Status Dates MABEL DietrichC Attending Provider Active Team Status: Active Member Role Status Dates Diane Davis MD Primary Care Provider Active Team Status: Inactive Member Role Status Dates Diane Davis MD Primary Care Provider Active Start: October 20, 2023 End: October 20, 2023 Ellen Stratton APRN Attending Provider Active S tart: October 20, 2023 End: October 20, 2023 Goals (unrecognized section and content) Goals may be documented in a n alternate section FOR RECORDS PERTAINING TO PATIENTS WHO ARE OR HAVE BEEN ENROLLED IN A CHEMICAL DEPENDENCY/SUBSTANCEABUSE PROGRAM, SOME INFORMATION MAY BE OMITTED. This clinical summary was aggregated from multiple sources. Caution should be exercised in using it in the provision of clinical care. This summary normalizes information from multiple sources, and as a consequence, information in this document may materially change the coding, format and clinical context of patient data. In addition, data may be omitted in some cases. CLINICAL DECISIONS SHOULD BE BASED ON THE PRIMARY CLINICAL RECORDS. [employer] provides no warranty or guarantee of the accuracy or completeness of information in this document.
== END 2023-10-28 11:08 | disposition home or self-care (01) ==
LOC: EC 11:07
PROVIDERS: PCP Family Medicine; Visit Provider Physician Assistant
DX: M79.672 Pain in left foot (principal); M79.671 Pain in right foot; S92.424A Nondisplaced fracture of distal phalanx of right great toe, initial encounter for closed fracture
CPT/HCPCS: 73630

== ENCOUNTER 2023-12-08 14:59 | Outpatient (OUT) | payer OTHER, SELFPAY ==
--- NOTE | 2023-12-08 | XR_ITS ---
The [address] [address] Patient Name: LUCAS ARMENDARIZ MRN: [id number] date: 1980 Sex: M Assigned Patient Location: Current Patient Location: Accession/Order Number: [id number] Exam Date: 12/08/2023 15:04 Report Date: 12/09/2023 07:34 At the request of: GEORGE LEE Procedure: XR ankle BRAD min 3V EXAMINATION: XR ankle BRAD min 3V HISTORY: BILATERAL ANKLE PAIN COMPARISON: No relevant comparison available. FINDINGS: RIGHT FINDINGS: BONES: Pes planus. Contour deformity of the distal fibula with calcification across the tibiofibular syndesmosis. Now removed hardware. Screw fragment identified in the distal tibial metaphysis. No acute fracture or dislocation SOFT TISSUES: Negative. No visible soft tissue swelling. OTHER: Negative. LEFT FINDINGS: BONES: No acute fracture or dislocation. Pes planus. Degenerative changes with marginal osteophyte formation most significant along the dorsal midfoot SOFT TISSUES: Negative. No visible soft tissue swelling. OTHER: Negative. XR/XR ankle BRAD min 3V IMPRESSION: Bilateral pes planus Electronically authenticated by: MACARIO COE Date: 12/09/2023 07:34
--- OUTSIDE RECORDS SUMMARY | 2023-12-08 15:16 | XMS_ITS | CCD ---
Author Organization [facility] CliniSyny Care Team Providers Care Halftone Operator Name Role Phone DR DIANE DAVIS Admitting Unavailable ETHAN, DR CONTRERAS Attending Unavailable [...] Baylee Ureña Unavailable NA Ureña Attending Provider [phone] ALEX LEW Attending Unavailable MIKE PERES Admitting Unavailable MIKE PERES Attending Unavailable MIKE PERES Attending Unavailable MIKE PERES Attending Unavailable MIKE PERES Attending Unavailable MIKE PERES Attending Unavailable MD Diane Davis Primary Care Provider [phone] NATAN Stratton Attending Provider [phone] BAYLEE LAWS Attending Unavailable MIKE PERES Referring Unavailable DENIS DELATORRE Attending Unavailable HUMPHREY CASTELLON Attending Unavailable MIKE PERES Referring Unavailable BRIAN CARBAJAL Attending Unavailable MIKE PERES Referring Unavailable HUMPHREY CASTELLON Attending Unavailable MIKE PERES Referring Unavailable YUMIKO BOYD Attending Unavailable MIKE PERES Referring Unavailable REJI REYNOLDS Attending Unavailable MIKE PERES Referring Unavailable Diane Davis Primary Care Unavailable Ellen Stratton Attending Unavailable Ellen Stratton Admitting Unavailable Allergies Allergy Classification Reported Allergen(s) Allergy Type Date of Onset Reaction(s) Facility (2 sources) predniSONE; Translations: [PREDNISONE] Drug Allergy 03-18-2023 [facility] Repository (1 source) predniSONE Drug Allergy 10-20-2023 [facility] Repository Medications Current Medications Medication Drug Class(es) Dates [...] a day for 10 days August, Active Problems Active Problems Problem Classification Problem Date [...] EPICONDYLITIS LEFT ELBOW] Onset: 01-26-2022 Episodic Other connective tissue disease (1 source) Pain in right toe(s); Translations: [Pain in right toe(s)] Onset: 10-20-2023 Episodic Other fractures (1 source) Multiple fractures [...] te Episodic/Chronic Other aftercare (1 source) 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; Translations: [OTH GROUP HOME CURRENT DRUG THERAPY] Onset: 09-30-2021 Episodic Other [...] [CONTACT W/AND (SUSP) EXPOS COVID-19] Onset: 05-09-2021 Results Test Name Value Interpretation Reference Range Facility XR foot RT min 3V*on 024 XR foot RT min 3V* [place] [address] XRay Report Signed Patient: Lucas Lewis MR#: [id number] : 1980 Acct:[id number] Age/Sex: 42 / M ADM Date: 10/20/23 Loc: XDUCLY Room: Type: [facility] Attending Dr: Ellen Stratton APRN Copies to: [...] Her Jr., D.OSasha10/20/2023 4:45 PM Dictation Location: [facility]15 Transcribed By: [facility] 10/20/231644 Dictated By: Keshav Her Jr, DO 10/20/231643 Signed By: 10/20/231644 [facility] Follow-Upon 05-14-2023 Follow-Up [id number] Lucas Lewis 1980 M Date Provider Department Center 05/14/2023 MIKE ANNA [facility] Family History Problem Relation Age of Onset Diabetes Mother Hypertension Father Colon cancer Father Family Status - Relation Status Age at Mother Alive Father Alive Level of Service:74069 [place] POSTOP FOLLOW UP VISIT RELATED TO ORIGINAL PX (GC) Reason for Visit and Comments: Follow-up [071011] [facility] Follow-Upon 04-13-2023 Follow-Up [id number] Lucas Lewis 1980 M Date Provider Department Center 04/13/2023 MIKE ANNA [facility] Family History Problem Relation Age of Onset Diabetes Mother Hypertension Father Colon cancer Father Family Status - Relation Status Age at Mother Alive Father Alive Level of Service:41163 [place] POSTOP FOLLOW UP VISIT RELATED TO ORIGINAL PX [facility] HPon 03-29-2023 History Of Present Illness Lucas [...] lumbar vertebra, initial encounter for closed fracture ([facility]). Surgical History He has a past surgical [...] light touch distally Relevant Imaging Results Where: Kb Date: 05/01/2022 MRI left elbow: [...] for left elbow arthroscopy, extensive debridement Normal [facility] NURSNOTEon 03-29-2023 NURSNOTE Discharge instructions reviewed with patient father at bedside. All questions answered at this time. 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] Procedures Left elbow arthroscopy, debridement of radiocapitellar joint, debridement of posterior compartment, excision of olecranon and distal humerus (anterior and posterior) osteophytes ELBOW ARTHROSCOPY, EXTENSIVE DEBRIDEMENT [id number] - [place] ARTHROSCOPY ELBOW SURGICAL DEBRIDEMENT EXTENSIVE Surgeons * Mike Peres - Primary Computer Forensics Technician: Georges Alfonso MD - resident Procedure Summary Anesthesia: General ASA: I Estimated Blood Loss: Minimal Total IV Fluids: per anesthesia record Drains: * None in log * Staff: Desktop Architect: Shila Felix RN Scrub Person: Susan Díaz Orientpriscilla Desktop Architect: HEYDI RAMOS Indications: Lucas Lewis is an [...] to the left upper extremity. Be given [place] for pain control. We will start physical therapy in 4 days for range of motion and strengthening. I will see him back in clinic for suture removal and 7 to 10 days. Findings: radiocapitellar arthritis, osteophyte of the anterior humerus, olecranon, olecranon fossa Complications: None; patient tolerated the procedure well. Disposition: PACU - hemodynamically stable. Condition: stable Mike Peres Normal [facility] POCT GLUCOSE METER UNSOLICIT ED RESULTSon 03-29-2023 Glucose [Mass/Vol] 91 mg/dL Normal 70-105 [facility] Comment on above: Order Comment: Cory monterroso Testing in the ED is performed under the ED CLIA certificate #[id number]. Result Comment: ngro [place] Performed By: #### L [id number] ####[facility] ([facility]AK[facility] [place] [address] Orders Onlyon 03-22-2023 Orders Only [id number] Lucas Lewis 1980 M Date Provider Department Center 03/22/2023 MIKE ANNA [facility] Family History Problem Relation Age of Onset Diabetes Mother Hypertension Father Colon cancer Father Family Status - Relation Status Age at Mother Alive Father Alive Normal [facility] Follow-Upon 12-08-2022 Follow-Up [id number] Lucas Lewis 1980 M Date Provider Department Center 12/08/2022 MIKE ANNA [facility] Family History Problem Relation Age of Onset Diabetes Mother Hypertension Father Colon cancer Father Family Status - Relation Status Age at Mother Alive Father Alive Level of Service:00688 [place] OFFICE/OUTPATIENT ESTABLISHED MOD MDM 30-39 MIN (57,GC) Reason for Visit and Comments: Pre-op Visit [558] Normal [facility] XR ribs LT min 3V w CXR1V*on 09-13-2022 XR ribs LT min 3V w CXR1V* [facility] Other XR ribs LT min 3V w CXR1V* [facility] Other XR ribs LT min 3V w CXR1V* [address] [place] [address] [facility] Other XR ribs LT min 3V w CXR1V* [place] [address] [facility] Other XR ribs LT min 3V w CXR1V* XRay Report [facility] Other XR ribs LT min 3V w CXR1V* Signed [facility] Other XR ribs LT min 3V w CXR1V* Patient: Lucas Lewis MR#: [id number] [facility] Other XR ribs LT min 3V w CXR1V* : 1980 Acct:[id number] [facility] Other XR ribs LT min 3V w CXR1V* Age/Sex: 41 / M ADM Date: 09/13/22 [facility] Other XR ribs LT min 3V w CXR1V* Loc: XDUCLY Room: Type: REG CLI [facility] Other XR ribs LT min 3V w CXR1V* Attending Dr: Baylee MONZON [facility] Other XR ribs LT min 3V w CXR1V* Copies to: NA Figueredo [facility] Other XR ribs LT min 3V w CXR1V* Ordering Provider: NA Figueredo [facility] Other XR ribs LT min 3V w CXR1V* Date of Service: 09/13/22 [facility] Other XR ribs LT min 3V w CXR1V* XR/XR ribs LT min 3V w CXR1V*: LEFT RIB PAIN [facility] Other XR ribs LT min 3V w CXR1V* XR ribs LT min 3V w CXR1V* 09/13/2022 2:14 PM [facility] Other XR ribs LT min 3V w CXR1V* SIGNS AND SYMPTOMS: Fall onto left side, pain over the anterior and lateral left lower ribs [facility] Other XR ribs LT min 3V w CXR1V* PROTOCOL: Frontal radiograph of the chest with oblique radiographs of the left ribs [facility] Other XR ribs LT min 3V w CXR1V* COMPARISON: None [facility] Other XR ribs LT min 3V w CXR1V* FINDINGS: [facility] Other XR ribs LT min 3V w CXR1V* The trachea is midline. The heart and mediastinal structures are within normal limits. The lung [facility] Other XR ribs LT min 3V w CXR1V* parenchyma is clear. Minimally displaced fractures are noted along the anterior aspects of the left [facility] Other XR ribs LT min 3V w CXR1V* ninth through 11th ribs near the costochondral junction. [facility] Other XR ribs LT min 3V w CXR1V* XR/XR ribs LT min 3V w CXR1V* [facility] Other XR ribs LT min 3V w CXR1V* IMPRESSION: [facility] Other XR ribs LT min 3V w CXR1V* Minimally displaced fractures are noted along the anterior aspects of the left ninth through 11th [facility] Other XR ribs LT min 3V w CXR1V* ribs near the costochondral junction. [facility] Other XR ribs LT min 3V w CXR1V* Impression dictated by: Zachariah Krause M.D.09/13/2022 2:22 PM [facility] Other XR ribs LT min 3V w CXR1V* Dictation Location: [place] [address] [facility] Other XR ribs LT min 3V w CXR1V* Transcribed By: GRISELDA 09/13/22 [facility] Other XR ribs LT min 3V w CXR1V* Dictated By: Zachariah Krause II, MD 09/13/22 [facility] Other XR ribs LT min 3V w CXR1V* Signed By: [facility] Other XR ribs LT min 3V w CXR1V* 09/13/22 [facility] Other Office Visiton 07-21-2022 Follow-up visit [id number] Lucas Lewis 1980 M Date Provider Department Center 07/21/2022 Alex-MIKE PERES [facility] Family History Problem Relation Age of Onset Diabetes Mother Hypertension Father Colon cancer Father Family Status - Relation Status Age at Mother Alive Father Alive Level of Service:82564 [place] OFFICE/OUTPATIENT ESTABLISHED MOD MDM 30-39 MIN (25,GC) Reason for Visit and Comments: Pain [136] [facility] 36on 06-22-2022 36 Pt called stated he has not heard anything yet from Dr. Peres and wants to know what to do [facility] 36on 06-01-2022 36 Pt notified [facility] on 05-29-2022 36 Pt called wanting to know what his next step of care would be? [facility] Telephoneon 05-29-2022 Telephone [id number] Lucas Lewis 1980 M Date Provider Department Center 05/29/2022 [facility] Family History Problem Relation Age of Onset Diabetes Mother Hypertension Father Colon cancer Father Family Status - Relation Status Age at Mother Alive Father Alive Reason for Visit and Comments: plan of care [Other] [facility] Follow-Upon 05-20-2022 Follow-Up [id number] Lucas Lewis 1980 M Date Provider Department Center 05/20/2022 Tanna-ALEX LEW [facility] Family History Problem Relation Age of Onset Diabetes Mother Hypertension Father Colon cancer Father Family Status - Relation Status Age at Mother Alive Father Alive Level of Service:34932 [place] OFFICE/OUTPATIENT NEW LOW MDM 30-44 MINUTES Reason for Visit and Comments: Follow-up [330108] [facility] MRI ELBOW LT WO CONon 2021 MRI [...] EILEEN MELCHOR Date: 2022-03-25 22:09 Normal [facility] XR FOREIGN BODY EYEon 2021 XR FOREIGN BODY EYE EXAMINATION: XR FOREIGN BODY EYE HISTORY: Foreign body in eye COMPARISON: No relevant comparison available. FINDINGS: ORBITS: Negative for a metallic foreign body. OTHER: Negative. IMPRESSION: No metallic foreign body in the orbits Electronically authenticated by: MACARIO COE Date: 2022-03-20 08:50 Normal [facility] CBC AUTO DIFFon 12-27-2021 BASO # 0.0 103/ul Normal 0.0-0.1 [facility] Comment on above: Performed By: #### C BC #### [facility] [address] [place] [address] Dr. Little Lindsay Basophils/100 WBC (Bld) 0.6 % Normal 0.2-2.0 [facility] Comment on above: Performed By: #### C BC #### [facility] [address] [place] [address] Dr. Little Lindsay EO # 0.0 103/ul Normal 0.0-0.7 [facility] Comment on above: Performed By: #### C BC #### [facility] [address] [place] [address] Dr. Little Lindsay Eosinophils/100 WBC (Bld) 0.5 % Critically low 0.9-7.0 [facility] Comment on above: Performed By: #### C BC #### [facility] [address] [place] [address] Dr. Little Lindsay Erythrocyte distribution width (RBC) [Ratio] 14.2 % Normal 11.0-15.0 [facility] Comment on above: Performed By: #### C BC #### [facility] [address] [place] [address] Dr. Little Lindsay Hematocrit (Bld) [Volume fraction] 44.6 % Normal 42.0-54.0 [facility] Comment on above: Performed By: #### C BC #### [facility] [address] [place] [address] Dr. Little Lindsay Hemoglobin (Bld) [Mass/Vol] 14.8 g/dL Normal 14.0-18.0 [facility] Comment on above: Performed By: #### C BC #### [facility] [address] [place] [address] Dr. Little Lindsay IG # 0.03 10e3/ul Normal 0.00-0.03 [facility] Comment on above: Performed By: #### C BC #### [facility] [address] [place] [address] Dr. Little Lindsay IG % 0.5 % Normal 0.0-0.5 [facility] Comment on above: Performed By: #### C BC #### [facility] [address] [place] [address] Dr. Little Lindsay LYMPH # 1.6 103/ul Normal 1.2-3.8 [facility] Comment on above: Performed By: #### C BC #### [facility] [address] [place] [address] Dr. Little Lindsay Lymphocytes/100 WBC (Bld) 24.6 % Normal 20.5-60.0 [facility] Comment on above: Performed By: #### C BC #### [facility] [address] [place] [address] Dr. Little Lindsay MANUAL DIFF REQ NO Normal [facility] Comment on above: Performed By: #### C BC #### [facility] [address] [place] [address] Dr. Little Lindsay MCH (RBC) [Entitic mass] 30.8 pg Normal 25.9-34.0 [facility] Comment on above: Performed By: #### C BC #### [facility] [address] [place] [address] Dr. Little Lindsay MCHC (RBC) [Mass/Vol] 33.2 g/dL Normal 29.9-35.2 [facility] Comment on above: Performed By: #### C BC #### [facility] [address] [place] [address] Dr. Little Lindsay MCV (RBC) [Entitic vol] 92.9 fL Normal 80.0-94.0 [facility] Comment on above: Performed By: #### C BC #### [facility] [address] [place] [address] Dr. Little Lindsay MONO # 0.5 103/ul Normal 0.3-0.8 [facility] Comment on above: Performed By: #### C BC #### [facility] [address] [place] [address] Dr. Little Lindsay Monocytes/100 WBC (Bld) 6.8 % Normal 1.7-12.0 [facility] Comment on above: Performed By: #### C BC #### [facility] [address] [place] [address] Dr. Little Lindsay NEUT # 4.4 103/ul Normal 1.4-6.5 [facility] Comment on above: Performed By: #### C BC #### [facility] [address] [place] [address] Dr. Little Lindsay Neutrophils/100 WBC (Bld) 67.0 % Normal 43.0-75.0 [facility] Comment on above: Performed By: #### C BC #### [facility] [address] [place] [address] Dr. Little Lindsay Platelet mean volume (Bld) [Entitic vol] 10.8 fL Normal 9.5-13.5 [facility] Comment on above: Performed By: #### C BC #### [facility] [address] [place] [address] Dr. Little Lindsay PLT 187 103/ul Normal 150-450 [facility] Comment on above: Performed By: #### C BC #### [facility] [address] [place] [address] Dr. Little Lindsay RBC 4.80 106/ul Normal 4.70-6.10 [facility] Comment on above: Performed By: #### C BC #### [facility] [address] [place] [address] Dr. Little Lindsay WBC 6.6 103/ul Normal 4.0-11.0 [facility] Comment on above: Performed By: #### C BC #### [facility] [address] [place] [address] Dr. Little Lindsay GLYCOHEMOGLOBIN A1Con 2021 ADA RECOMMENDATION SEE BELOW Normal [facility] Comment on above: Result Comment: ADA RECOMMENDED LIMIT 4.0 - 6.0 ADA THERAPEUTIC TARGET < 7.0 ACTION SUGGESTED > 7.0 Performed By: #### A 1C #### [facility] [address] [place] [address] Dr. Little Lindsay Glucose [Mass/Vol] 111 mg/dL Normal [facility] Comment on above: Performed By: #### A 1C #### [facility] [address] [place] [address] Dr. Little Lindsay HbA1c (Bld) [Mass fraction] 5.5 % Normal 4.5-6.2 [facility] Comment on above: Performed By: #### A 1C #### [facility] [address] [place] [address] Dr. Little Lindsay LIPID PROFILEon 12-27-2021 CHOL-HDL RATIO NORM SEE BELOW Normal [facility] Comment on above: Result Comment: 3.3 - 4.4 LOW RISK 4.4 - 7.1 AVERAGE RISK 7.1 - 11.0 MODERATE RISK >11.0 HIGH RISK Performed By: #### L IPID, CMP, URIC #### [facility] [address] [place] [address] [address] Little Lindsay Cholesterol [Mass/Vol] 195 mg/dL Normal <=200 [facility] Comment on above: Performed By: #### L IPID, CMP, URIC #### [facility] [address] [place] [address] [address] Little Lindsay Cholesterol in HDL [Mass/Vol] 106 mg/dL Critically high 40-60 [facility] Comment on above: Performed By: #### L IPID, CMP, URIC #### [facility] [address] [place] [address] [address] Little Lindsay Cholesterol in LDL [Mass/Vol] 83.2 mg/dL Normal [facility] Comment on above: Performed By: #### L IPID, CMP, URIC #### [facility] [address] [place] [address] [address] Little Lindsay Cholesterol.total/Ch olesterol in HDL [Mass ratio] 1.8 {ratio} Normal [facility] Comment on above: Performed By: #### L IPID, CMP, URIC #### [facility] [address] [place] [address] [address] Little Lindsay HDL NORMAL > or = 60 mg/dl - LOW CARDIOVASCULAR RISK <40 mg/dl - HIGH CARDIOVASCULAR RISK Normal [facility] Comment on above: Performed By: #### L IPID, CMP, URIC #### [facility] [address] [place] [address] [address] Little Lindsay LDL CALC NORMAL SEE BELOW Normal [facility] Comment on above: Result Comment: <100 mg/dl OPTIMAL 100 - 129 mg/dl NEAR OR ABOVE OPTIMAL 130 - 159 mg/dl BORDERLINE HIGH 160 - 189 mg/dl HIGH >190 mg/dl VERY HIGH Performed By: #### L IPID, CMP, URIC #### [facility] [address] [place] [address] [address] Little Lindsay Triglyceride [Mass/Vol] 29 mg/dL Normal <=150 [facility] Comment on above: Performed By: #### L IPID, CMP, URIC #### [facility] [address] [place] [address] [address] Little Lindsay VLDL CALC 5.8 mg/dL Normal [facility] Comment on above: Performed By: #### L IPID, CMP, URIC #### [facility] [address] [place] [address] [address] Little Lindsay PROF 14(COMP METB)on 022 Albumin [Mass/Vol] 4.3 g/dL Normal 3.4-5.0 [facility] Comment on above: Performed By: #### L IPID, CMP, URIC #### [facility] [address] [place] [address] [address] Little Lindsay Albumin/Globulin [Mass ratio] 1.3 {ratio} Normal [facility] Comment on above: Performed By: #### L IPID, CMP, URIC #### [facility] [address] [place] [address] [address] Little Lindsay ALP [Catalytic activity/Vol] 67 U/L Normal 46-116 [facility] Comment on above: Performed By: #### L IPID, CMP, URIC #### [facility] [address] [place] [address] [address] Little Lindsay ALT [Catalytic activity/Vol] 42 U/L Normal 16-63 [facility] Comment on above: Performed By: #### L IPID, CMP, URIC #### [facility] [address] [place] [address] [address] Little Lindsay Anion gap [Moles/Vol] 10.5 mmol/L Normal [facility] Comment on above: Performed By: #### L IPID, CMP, URIC #### [facility] [address] [place] [address] [address] Little Lindsay AST [Catalytic activity/Vol] 22 U/L Normal 15-37 [facility] Comment on above: Performed By: #### L IPID, CMP, URIC #### [facility] [address] [place] [address] [address] Little Lindsay Bilirubin [Mass/Vol] 0.4 mg/dL Normal 0.2-1.0 [facility] Comment on above: Performed By: #### L IPID, CMP, URIC #### [facility] [address] [place] [address] [address] Little Lindsay Calcium [Mass/Vol] 9.1 mg/dL Normal 8.5-10.1 [facility] Comment on above: Performed By: #### L IPID, CMP, URIC #### [facility] [address] [place] [address] Dr. Little Lindsay Chloride [Moles/Vol] 102 mmol/L Normal 98-107 [facility] Comment on above: Performed By: #### L IPID, CMP, URIC #### [facility] [address] [place] [address] Dr. Little Lindsay CO2 [Moles/Vol] 28.0 mmol/L Normal 21.0-32.0 [facility] Comment on above: Performed By: #### L IPID, CMP, URIC #### [facility] [address] [place] [address] Dr. Little Lindsay Creatinine [Mass/Vol] 0.82 mg/dL Normal 0.70-1.30 [facility] Comment on above: Performed By: #### L IPID, CMP, URIC #### [facility] [address] [place] [address] Dr. Little Lindsay EGFR-AF NAURUAN 125 mL/min/1.73m2 Normal >=60 [facility] Comment on above: Performed By: #### L IPID, CMP, URIC #### [facility] [address] [place] [address] Dr. Little Lindsay EGFR-NON AF NAURUAN 104 mL/min/1.73m2 Normal >=60 [facility] Comment on above: Performed By: #### L IPID, CMP, URIC #### [facility] [facility] [address] [place] [address] Dr. Little Lindsay Globulin (S) [Mass/Vol] 3.2 g/dL Normal [facility] Comment on above: Performed By: #### L IPID, CMP, URIC #### [facility] [address] [place] [address] Dr. Little Lindsay Glucose [Mass/Vol] 107 mg/dL Critically high 74-106 T [facility] Comment on above: Performed By: #### L IPID, CMP, URIC #### [facility] [address] [place] [address] Dr. Little Lindsay Potassium [Moles/Vol] 4.5 mmol/L Normal 3.5-5.1 [facility] Comment on above: Performed By: #### L IPID, CMP, URIC #### [facility] [address] [address] [address] Little Lindsay Protein [Mass/Vol] 7.5 g/dL Normal 6.4-8.2 [facility] Comment on above: Performed By: #### L IPID, CMP, URIC #### [facility] [address] [address] [address] Little Lindsay Sodium [Moles/Vol] 136 mmol/L Normal 136-145 [facility] Comment on above: Performed By: #### L IPID, CMP, URIC #### [facility] [address] [address] [address] Little Lindsay Urea nitrogen [Mass/Vol] 15.0 mg/dL Normal 7.0-18.0 [facility] Comment on above: Performed By: #### L IPID, CMP, URIC #### [facility] [address] [address] [address] Little Lindsay Urea nitrogen/Creatinine [Mass ratio] 18.3 mg/mg Normal [facility] Comment on above: Performed By: #### L IPID, CMP, URIC #### [facility] [address] [place] [address] Dr. Little Lindsay URIC ACID SERUMon 12-27-2021 Urate [Mass/Vol] 3.5 mg/dL Normal 3.5-7.2 [facility] Comment on above: Performed By: #### L IPID, CMP, URIC #### [facility] [address] [address] [address] Little Lindsay Covid-19 PCR ([facility])on SARS-CoV-2 (COVID-19) RNA EBEN+probe Ql (Unsp spec) Not detected Normal NOT DETECTED [facility] Comment on above: Result Comment: This test is not yet approved or cleared by the [place] FDA. When there are no FDA-approved or cleared tests available, and other criteria are met, FDA can make tests available under an emergency access mechanism called an Emergency Use Authorization (EUA). The EUA for this test is supported by the [employer] of Health and Human Service's (HHS's) declaration [...] consistent with SARS-CoV-2. Performed By: #### C [facility] #### [facility] [address] [address] [address] Little Lindsay Vital Signs Date Time Vital Sign Value Performing Clinician Facility 10-20-2023 16:17-0400 Body height 182.88 cm MD Diane Davis Work Phone: [facility] 10-20-2023 16:17-0400 Body mass index (BMI) [Ratio] 27.8 kg/m2 MD Diane Davis Work Phone: [facility] 10-20-2023 16:17-0400 Body temperature 98.6 [degF] MD Diane Davis Work Phone: [facility] 10-20-2023 16:17-0400 Body weight 92.98 kg MD Diane Davis Work Phone: [facility] 10-20-2023 16:17-0400 Diastolic blood pressure 80 mm[Hg] MD Diane Davis Work Phone: [facility] 10-20-2023 16:17-0400 Heart rate 70 /min MD Diane Davis Work Phone: [facility] 10-20-2023 16:17-0400 Respiratory rate 16 /min MD Diane Davis Work Phone: [facility] 10-20-2023 16:17-0400 SaO2% (BldA) [Mass fraction] 97 % MD Diane Davis Work Phone: [facility] 10-20-2023 16:17-0400 Systolic blood pressure 127 mm[Hg] MD Diane Davis Work Phone: [facility] 09-13-2022 14:35-0400 Body height 182.88 cm Baylee Adelita Other [facility] Other 09-13-2022 14:35-0400 Body mass index (BMI) [Ratio] 29.35 kg/m2 Baylee Adelita Other [facility] Other 09-13-2022 14:35-0400 Body temperature 97.8 [degF] Baylee Adelita Other [facility] Other 09-13-2022 14:35-0400 Body weight 98.16 kg Baylee Adelita Other [facility] Other 09-13-2022 14:35-0400 Diastolic blood pressure 83 mm[Hg] Baylee Adelita Other [facility] Other 09-13-2022 14:35-0400 Respiratory rate 18 /min Baylee Adelita Other [facility] Other 09-13-2022 14:35-0400 SaO2% (BldA) [Mass fraction] 97 % Baylee Adelita Other [facility] Other 09-13-2022 14:35-3120 Systolic blood pressure 128 mm[Hg] Baylee Ureña Other [facility] Other Encounters Encounter Date Encounter Type Care Provider Facility Start: 10-21-2023 End: 10-21-2023 ambulatory DENIS Joce JJEN Not Available Start: 10-20-2023 End: 10-20-2023 ambulatory MD Diane Davis Work Phone: [facility] Work Phone: Start: 10-20-2023 End: 10-20-2023 Patient encounter procedure MD Diane Davis Work Phone: [facility] Work Phone: Start: 05-14-2023 End: 05-14-2023 ambulatory MIKE Monterroso [facility] Start: 04-23-2023 End: 04-23-2023 ambulatory REJI GAIL Not Available Start: 04-19-2023 End: 04-19-2023 ambulatory YUMIKO GAYKATIE Not Available Start: 04-16-2023 End: 04-16-2023 ambulatory HUMPHREY CASTELLON Not Available Start: 04-13-2023 End: 04-13-2023 ambulatory MIKE Monterroso [facility] Start: 04-08-2023 End: 04-08-2023 ambulatory HUMPHREY CASTELLON Not Available Start: 04-02-2023 End: 04-02-2023 ambulatory BAYLEE LAWS Not Available Start: 03-29-2023 End: 03-29-2023 ambulatory MIKE Monterroso [facility] Start: 12-08-2022 End: 12-08-2022 ambulatory MIKE Monterroso [facility] Start: 09-13-2022 Office outpatient vi sit 15 minutes Baylee Ureña [facility] Start: 09-13-2022 End: 09-13-2022 ambulatory Baylee Ureña Other [facility] Other Start: 09-13-2022 End: 09-13-2022 Patient encounter procedure C[employer]S PATROL OFFICER-C Baylee Ureña Work Phone: [facility] Work Phone: Start: 07-21-2022 End: 07-21-2022 ambulatory MIKE PERES [facility] Start: 05-20-2022 ambulatory ALEX LEW [facility] Start: 03-20-2022 End: 03-21-[address] DIANE DAVIS Facility:[facility] Start: 02-10-2022 End: 04-15-[address] DIANE DAVIS Facility:[facility] Start: 01-26-2022 End: 01-27-2022 ambulatory BAYLEE MOORE Facility:[facility] Start: 12-29-2021 Encounter for genera l adult medical examination without abnormal findings DR DIANE DAVIS [facility] Start: 12-27-2021 End: 12-28-[address] DIANE DAVIS Facility:[facility] Start: 12-27-2021 End: 12-28-2021 Encounter for general adult medical examination without abnormal findings DR DIANE DAVIS Facility:[facility] Start: 09-27-2021 End: 09-27-2021 ambulatory COCO HERNANDEZ Facility:[facility] Start: 05-09-2021 End: 05-09-[address] DIANE DAVIS Facility:[facility] Procedures Date Procedure Procedure Detail Performing Clinician Start: 10-20-2023 X-ray of right foot MD Diane Davis Work Phone: Start: 09-13-2022 Plain chest X-ray [employer] PATROL OFFICER-Rufina Ureña Work Phone: Start: 05-20-2022 Follow-up visit Follow-up ALEX LEW Start: 12-27-[address] COOPER DAVIS Comment on above: Performed By: #### P [facility] #### [facility] [address] [place] [address] Dr. Little Lindsay Plan of Treatment Date Care Activity Detail Author Start: 10-20-2023 Patient referral [facility] Work Phone: Patient referral [facility] Work Phone: XR Foot - right GE 3 Views F [facility] Payers Date Payer Category Payer Self-pay [id number] 1980 Unknown [id number] 2.16.84 [id number] 1980 Unknown [id number] 2.16.84 [id number] 1980 Unknown [id number] 2.16.84 0.1.590020.3.579.2.593 1980 Unknown [id number] 2.16.84 0.1.668680.3.579.2.593 1980 Unknown [id number] 2.16.84 0.1.605934.3.579.2.593 1980 Unknown [id number] 2.16.84 0.1.078731.3.579.2.593 1980 Unknown [id number] 2.16.84 0.1.255737.3.579.2.1258 1980 Unknown [id number] 2.16.840 .1.208294.3.579.2.1258 1980 Unknown [id number] 2.16.840 .1.666998.3.579.2.1258 1980 Unknown [id number] .16.840 .1.310465.3.579.2.1258 1980 Unknown [id number] .16.840 .1.365319.3.579.2.1258 1980 Unknown [id number] 2.16.840 .1.098759.3.579.2.1258 1980 Unknown [id number] 2.16.840 .1.579931.3.579.2.1259 1959 Private Health Insurance [id number] Unknown [id number] 2.16.8 [id number] Social History Date Type Detail Facility Unknown if ever smoked [facility] Other Sex Assigned At Sex Assigned At Bir th [facility] Other Start: 1980 Sex Assigned At Male F [facility] Start: 06-12-2017 Tobacco smoking status NHIS Never smoked tobacco (finding) [facility] Clinical Notes 01-26-2022 to 05-14-2023 Note Date [...] a bit better, 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 Mike Peres MD [facility] 04-13-2023 Note Post-Operative Follo w-up: Patient here [...] plan with the patient. Mike Peres MD [facility] 03-29-2023 Note Patient: Lucas Lewis Procedure Summary Date: 03/29/23 Room / Location: [facility] OR [address] [place] [address] [facility] OR Anesthesia Start: 728 Anesthesia Stop: 903 [...] per anesthesia protocol. No notable events documented. [facility] 03-29-2023 Note Patient: Lucas Lewis Procedure Summary Date: 03/29/23 Room / Location: [address] OR Anesthesia Start: 728 Anesthesia Stop: Procedure: ELBOW ARTHROSCOPY, EXTENSIVE DEBRIDEMENT (Left: Elbow) Diagnosis: Primary osteoarthritis, left elbow (Primary osteoarthritis, left elbow [M19.022]) Surgeons: Mike Peres MD Responsible Provider: Jane Cassidy MD Anesthesia Type: general, regional ASA Status: 1 Anesthesia Post Transport [facility] air Patient Monitor: direct observation Transport: uneventful Patient condition is: stable [facility] 03-29-2023 Note Airway Date/Time: 03/29/2023 7:35 AM Urgency: elective General Information and Staff Patient location during procedure: OR Anesthesiologist: Jane Cassidy MD Resident/BRANCH SALES AND SERVICE REPRESENTATIVE/CAA: TALISHA Estrada Performed: resident/BRANCH SALES AND SERVICE REPRESENTATIVE/CAA Indications and Patient Condition Indications for airway [...] 1 Number of other approaches attempted: 0 [facility] 03-29-2023 Note Peripheral Block Patient location during procedure: pre-op Start time: 03/29/2023 6:58 AM End time: 03/29/2023 7:14 AM Reason for block: at surgeon's request and post-op pain management Staffing Performed: resident/BRANCH SALES AND SERVICE REPRESENTATIVE/CAA Resident/BRANCH SALES AND SERVICE REPRESENTATIVE: Sandoval Hoyt MD Preanesthetic Checklist Completed: patient [...] rate change: no Slow fractionated injection: yes [facility] 03-29-2023 Note Patient: Lucas Lewis Procedure Information Date/Time: 03/29/23729 Procedure: ELBOW ARTHROSCOPY, EXTENSIVE DEBRIDEMENT (Left: Elbow) Location: [facility] OR [address] [place] [address] OR Surgeons: Mike Peres MD Past Medical [...] Plan discussed with CAA. 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 Do not wear perfume, make-up, nail marshallese, or lotions on the day of your [...] need to make any changes, please call [phone]. Notify your surgeon if you develop any illness such as a cold, cough, fever, sore throat or vomiting between now and your surgery. Thank you for entrusting us with your care. [facility] Surgical Services Team [facility] 12-08-2022 Note Subjective: Chief Complaint: left elbow [...] his pain. 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 Social History Occupational History Not [...] intact to light touch distally Imaging: Where: [place] Date: 05/01/2022 MRI left elbow: No obvious [...] personal documentation from me. Mike Peres MD [facility] 09-13-2022 Evaluation note Encounter Date Diagnosis Assessment [...] no improvement in 5 to 7 days [facility] Other 03-21-2023 NoteSubjective: Chief Complaint: left elbow [...] his pain. 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 Previous Treatments: PT Social History [...] Vascular exam: Brisk capillary refill Imaging: Where: [place] Date: 05/01/2022 MRI left elbow: No obvious [...] additional personal documentation from me. [facility] NoteOrthopedic Surgery Subjective HPI Chief complaint: Chief [...] his pain. 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 Previous Treatments: PT Patient History [...] osteochondritis dissecans Francisco Escoto, MS3 Orthopedic Surgery [facility] Patient seen and discussed with Dr. [...] touch with him about options for further treatment.[facility] 01-26-2022 NotePROCEDURE: XR ELBOW LT MIN 3 VIEWS COMPARISON: None. HISTORY: Medial epicondylitis FINDINGS: BONES:No acute fracture or dislocation. Degenerative changes with marginal osteophyte formation SOFT TISSUES:Negative. No visible soft tissue swelling. EFFUSION:Elbow joint effusion OTHER: Negative. IMPRESSION: Mild degenerative changes with elbow joint effusion Electronically authenticated by: MACARIO COE Date: 2022-01-26 19:59[facility] noteNo assessment information available[facility] Work Phone: Evaluation note* Diagnosis Onset Date Resolution Status Fracture of right great toe acute [facility] Work Phone: History general Narrative - Reported* Type Description Date Surgical History fracture repair Surgical History leg fracture [facility] Other Summary Purpose Family History No Family [...] and content) DATE CREATED AUTHOR 04/24/2022 [facility] DATE CREATED AUTHOR AUTHOR'S ORGANIZ ATION 05/15/2023 [facility] DATE CREATED AUTHOR AUTHOR'S ORGANIZ ATION 10/23/2023 [facility] EPIC DATE CREATED AUTHOR AUTHOR'S ORGANIZ ATION 11/01/2023 [facility] REASON FOR VISIT (unrecogniz ed section and content) LEFT RIB PAIN, Care Teams (unrecognized sec tion and content) Team Status: Inactive Member Role Status Dates NA Dietrich Attending Provider Active Team Status: Active Member [...] BE BASED ON THE PRIMARY CLINICAL RECORDS. [employer] provides no warranty or guarantee of the accuracy or completeness of information in this document.
== END 2023-12-08 15:00 | disposition home or self-care (01) ==
LOC: EC 14:59
PROVIDERS: PCP Family Medicine; Visit Provider Podiatrist Foot & Ankle Surgery
DX: M25.571 Pain in right ankle and joints of right foot (principal); M25.572 Pain in left ankle and joints of left foot; M21.42 Flat foot [pes planus] (acquired), left foot; M21.41 Flat foot [pes planus] (acquired), right foot
CPT/HCPCS: 73610

== ENCOUNTER 2024-03-04 09:28 | Outpatient (OUT) | payer OTHER, SELFPAY ==
--- OUTSIDE RECORDS SUMMARY | 2024-03-04 09:32 | XMS_ITS | CCD ---
Author Organization [facility] CliniSypr Care Team Providers Care Chain Maker Hand Name Role Phone DR DIANE DAVIS Admitting [...] ETHAN, DR CONTRERAS Consulting Unavailable ETHAN, DR CONTRERSA Primary Care Unavailable Baylee Ureña Unavailable NA Ureña Attending Provider ALEX LEW Attending Unavailable MIKE PERES Admitting Unavailable MIKE PERES Attending Unavailable MIKE PERES Attending Unavailable MIKE PERES Attending Unavailable MIKE PERES Attending Unavailable MIKE PERES Attending Unavailable MD Diane Davis Primary Care Provider [phone] NATAN Stratton Attending Provider BAYLEE LAWS Attending Unavailable MIKE PERES Referring Unavailable DENIS DELATORRE Attending Unavailable HUMPHREY CASTELLON Attending Unavailable MIKE PERES Referring Unavailable BRIAN CARBAJAL Attending Unavailable MIKE PERES Referring Unavailable HUMPHREY CASTELLON Attending Unavailable MIKE PERES Referring Unavailable YUMIKO BOYD Attending Unavailable MIKE PERES Referring Unavailable REJI REYNOLDS Attending Unavailable MIKE PERES Referring Unavailable iDane Davis Primary Care Unavailable Ellen Stratton Attending Unavailable Ellen Stratton Admitting Unavailable Allergies Allergy Classification Reported Allergen(s) Allergy Type Date of Onset Reaction(s) Facility (2 sources) predniSONE; Translations: [PREDNISONE] Drug Allergy 03-18-2023 [facility] Repository (1 source) predniSONE Drug Allergy 10-20-2023 [facility] Repository Medications Current Medications Medication Drug [...] te Episodic/Chronic Other aftercare (1 source) 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; Translations: [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] Onset: 09-30-2021 Episodic Other [...] 024 XR foot RT min 3V* [facility] [address] XRay Report Signed Patient: Lucas Lewis MR#: [id number] : 1980 Acct:[id number] Age/Sex: 42 / M ADM Date: 10/20/23 Loc: XDUCLY Room: Type: [facility] Attending Dr: Ellen Stratton APRN Copies to: [...] Her Jr., D.OSasha10/20/2023 4:45 PM Dictation Location: [facility]--15 Transcribed By: [facility] 10/20/231644 Dictated By: Keshav Her Jr, DO 10/20/231643 Signed By: 10/20/231644 [facility] Follow-Upon 05-14-2023 Follow-Up [id number] Lucas Lewis 1980 M Date Provider Department Center 05/14/2023 MIKE ANNA [facility] Family History Problem Relation Age of Onset Diabetes Mother Hypertension Father Colon cancer Father Family Status - Relation Status Age at Mother Alive Father Alive Level of Service:52085 [place] POSTOP FOLLOW UP VISIT RELATED TO ORIGINAL PX (GC) Reason for Visit and Comments: Follow-up [362878] [facility] Follow-Upon 04-13-2023 Follow-Up [id number] Lucas Lewis 1980 M Date Provider Department Center 04/13/2023 MIKE ANNA [facility] Family History Problem Relation Age of Onset Diabetes Mother Hypertension Father Colon cancer Father Family Status - Relation Status Age at Mother Alive Father Alive Level of Service:99861 [place] POSTOP FOLLOW UP VISIT RELATED TO ORIGINAL PX [facility] HPon 03-29-2023 History Of Present Illness Lucas [...] lumbar vertebra, initial encounter for closed fracture ([facility]). Surgical History He has a past surgical [...] for left elbow arthroscopy, extensive debridement Normal [facility] NURSNOTEon 03-29-2023 NURSNOTE Discharge instructions reviewed with patient father at bedside. All questions answered at this time. 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] Procedures Left elbow arthroscopy, debridement of radiocapitellar joint, debridement of posterior compartment, excision of olecranon and distal humerus (anterior and posterior) osteophytes ELBOW ARTHROSCOPY, EXTENSIVE DEBRIDEMENT 85032 - [place] ARTHROSCOPY ELBOW SURGICAL DEBRIDEMENT EXTENSIVE Surgeons * Mike Peres - Primary 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 Be given [place] for pain control. We will start physical therapy in 4 days for range of motion and strengthening. I will see him back in clinic for suture removal and 7 to 10 days. Findings: radiocapitellar arthritis, osteophyte of the anterior humerus, olecranon, olecranon fossa Complications: None; patient tolerated the procedure well. Disposition: PACU - hemodynamically stable. Condition: stable Mike Peres Normal [facility] POCT GLUCOSE METER UNSOLICIT ED RESULTSon 03-29-2023 Glucose [Mass/Vol] 91 mg/dL Normal 70-105 [facility] Comment on above: Order Comment: Cory monterroso Testing in the ED is performed under the ED CLIA certificate #[id number]. Result Comment: ngro denver Performed By: #### L [id number] ####[facility] ([facility]AK[facility])[address] [place] [address] Orders Onlyon 03-22-2023 Orders Only [id number] Lucas Lewis 1980 M Date Provider Department Center 03/22/2023 [facility] Problem Relation Age of Onset Diabetes Mother Hypertension Father Colon cancer Father Family Status - Relation Status Age at Mother Alive Father Alive Normal [facility] Follow-Upon 12-08-2022 Follow-Up [id number] Lucas Lewis 1980 M Date Provider Department Center 12/08/2022 [facility] Family History Problem Relation Age of Onset Diabetes Mother Hypertension Father Colon cancer Father Family Status - Relation Status Age at Mother Alive Father Alive Level of Service:63527 [place] OFFICE/OUTPATIENT ESTABLISHED MOD MDM 30-39 MIN (57,GC) Reason for Visit and Comments: Pre-op Visit [558] Normal [facility] XR ribs LT min 3V w CXR1V*on 09-13-2022 XR ribs LT min 3V w CXR1V* [facility] Gone! Other XR ribs LT min 3V w CXR1V* [facility] Gone! Other XR ribs LT min 3V w CXR1V* [address] [place] [address] Gone! Other XR ribs LT min 3V w CXR1V* [place] [address] Gone! Other XR ribs LT min 3V w CXR1V* XRay Report Gone! Other XR ribs LT min 3V w CXR1V* Signed Gone! Other XR ribs LT min 3V w CXR1V* Patient: Lucas Lewis MR#: [id number] Gone! Other XR ribs LT min 3V w CXR1V* : 1980 Acct:[id number] Gone! Other XR ribs LT min 3V w CXR1V* Age/Sex: 41 / M ADM Date: 09/13/22 Gone! Other XR ribs LT min 3V w CXR1V* Loc: XDUCLY Room: Type: REG CLI Gone! Other XR ribs LT min 3V w CXR1V* Attending Dr: Baylee MONZON Gone! Other XR ribs LT min 3V w CXR1V* Copies to: NA Figueredo Gone! Other XR ribs LT min 3V w CXR1V* Ordering Provider: NA Figueredo Gone! Other XR ribs LT min 3V w CXR1V* Date of Service: 09/13/22 Gone! Other XR ribs LT min 3V w CXR1V* XR/XR ribs LT min 3V w CXR1V*: LEFT RIB PAIN Gone! Other XR ribs LT min 3V w CXR1V* XR ribs LT min 3V w CXR1V* 09/13/2022 2:14 PM Gone! Other XR ribs LT min 3V w CXR1V* SIGNS AND SYMPTOMS: Fall onto left side, pain over the anterior and lateral left lower ribs Gone! Other XR ribs LT min 3V w CXR1V* PROTOCOL: Frontal radiograph of the chest with oblique radiographs of the left ribs Gone! Other XR ribs LT min 3V w CXR1V* COMPARISON: None Gone! Other XR ribs LT min 3V w CXR1V* FINDINGS: Gone! Other XR ribs LT min 3V w CXR1V* The trachea is midline. The heart and mediastinal structures are within normal limits. The lung Gone! Other XR ribs LT min 3V w CXR1V* parenchyma is clear. Minimally displaced fractures are noted along the anterior aspects of the left Gone! Other XR ribs LT min 3V w CXR1V* ninth through 11th ribs near the costochondral junction. Gone! Other XR ribs LT min 3V w CXR1V* XR/XR ribs LT min 3V w CXR1V* Gone! Other XR ribs LT min 3V w CXR1V* IMPRESSION: Gone! Other XR ribs LT min 3V w CXR1V* Minimally displaced fractures are noted along the anterior aspects of the left ninth through 11th Gone! Other XR ribs LT min 3V w CXR1V* ribs near the costochondral junction. Gone! Other XR ribs LT min 3V w CXR1V* Impression dictated by: Zachariah Krause M.D.09/13/2022 2:22 PM Gone! Other XR ribs LT min 3V w CXR1V* Dictation Location: [place] [address] Gone! Other XR ribs LT min 3V w CXR1V* Transcribed By: GRISELDA 09/13/22 [facility] Gone! Other XR ribs LT min 3V w CXR1V* Dictated By: Zachariah Krause II, MD 09/13/22 [facility] Gone! Other XR ribs LT min 3V w CXR1V* Signed By: Gone! Other XR ribs LT min 3V w CXR1V* 09/13/22 [facility] Gone! Other Office Visiton 07-21-2022 Follow-up visit [id number] Lucas Lewis 1980 M Date Provider Department Center 07/21/2022 Alex-MIKE PERES [facility] Family History Problem Relation Age of Onset Diabetes Mother Hypertension Father Colon cancer Father Family Status - Relation Status Age at Mother Alive Father Alive Level of Service:38609 [place] OFFICE/OUTPATIENT ESTABLISHED MOD MDM 30-39 MIN (25,GC) Reason for Visit and Comments: Pain [136] [facility] 36on 06-22-2022 36 Pt called stated he has not heard anything yet from Dr. Peres and wants to know what to do [facility] 36on 06-01-2022 36 Pt notified [facility] on 05-29-2022 36 Pt called wanting to know what his next step of care would be? [facility] Telephoneon 05-29-2022 Telephone [id number] Lucas Lewis 1980 M Date Provider Department Center 05/29/2022 [facility] Family History Problem Relation Age of Onset Diabetes Mother Hypertension Father Colon cancer Father Family Status - Relation Status Age at Mother Alive Father Alive Reason for Visit and Comments: plan of care [Other] [facility] Follow-Upon 05-20-2022 Follow-Up [id number] Lucas Lewis 1980 M Date Provider Department Center 05/20/2022 Tanna-ALEX LEW [facility] Family History Problem Relation Age of Onset Diabetes Mother Hypertension Father Colon cancer Father Family Status - Relation Status Age at Mother Alive Father Alive Level of Service:99219 [place] OFFICE/OUTPATIENT NEW LOW MDM 30-44 MINUTES Reason for Visit and Comments: Follow-up [063114] [facility] MRI ELBOW LT WO CONon 2021 MRI [...] EILEEN MELCHOR Date: 2022-03-25 22:09 Normal [facility] XR FOREIGN BODY EYEon 2021 XR FOREIGN BODY EYE EXAMINATION: XR FOREIGN BODY EYE HISTORY: Foreign body in eye COMPARISON: No relevant comparison available. FINDINGS: ORBITS: Negative for a metallic foreign body. OTHER: Negative. IMPRESSION: No metallic foreign body in the orbits Electronically authenticated by: MACARIO COE Date: 2022-03-20 08:50 Normal [facility] CBC AUTO DIFFon 12-27-2021 BASO # 0.0 103/ul Normal 0.0-0.1 [facility] Comment on above: Performed By: #### C BC #### [facility] [address] [place] [address] Dr. Little Lindsay Basophils/100 WBC (Bld) 0.6 % Normal 0.2-2.0 [facility] Comment on above: Performed By: #### C BC #### [facility] [address] [place] [address] Dr. Little Lindsay EO # 0.0 103/ul Normal 0.0-0.7 [facility] Comment on above: Performed By: #### C BC #### [facility] [address] [place] [address] Dr. Little Lindsay Eosinophils/100 WBC (Bld) 0.5 % Critically low 0.9-7.0 [facility] Comment on above: Performed By: #### C BC #### [facility] [address] [place] [address] Dr. Little Lindsay Erythrocyte distribution width (RBC) [Ratio] 14.2 % Normal 11.0-15.0 [facility] Comment on above: Performed By: #### C BC #### [facility] [address] [place] [address] Dr. Little Lindsay Hematocrit (Bld) [Volume fraction] 44.6 % Normal 42.0-54.0 [facility] Comment on above: Performed By: #### C BC #### [facility] [address] [place] [address] Dr. Little Lindsay Hemoglobin (Bld) [Mass/Vol] 14.8 g/dL Normal 14.0-18.0 [facility] Comment on above: Performed By: #### C BC #### [facility] [address] [place] [address] Dr. Little Lindsay IG # 0.03 10e3/ul Normal 0.00-0.03 [facility] Comment on above: Performed By: #### C BC #### [facility] [address] [place] [address] Dr. Little Lindsay IG % 0.5 % Normal 0.0-0.5 [facility] Comment on above: Performed By: #### C BC #### [facility] [address] [place] [address] Dr. Little Lindsay LYMPH # 1.6 103/ul Normal 1.2-3.8 [facility] Comment on above: Performed By: #### C BC #### [facility] [address] [place] [address] Dr. Little Lindsay Lymphocytes/100 WBC (Bld) 24.6 % Normal 20.5-60.0 [facility] Comment on above: Performed By: #### C BC #### [facility] [address] [place] [address] Dr. Little Lindsay MANUAL DIFF REQ NO Normal [facility] Comment on above: Performed By: #### C BC #### [facility] [address] [place] [address] Dr. Little Lindsay MCH (RBC) [Entitic mass] 30.8 pg Normal 25.9-34.0 [facility] Comment on above: Performed By: #### C BC #### [facility] [address] [place] [address] Dr. Little Lindsay MCHC (RBC) [Mass/Vol] 33.2 g/dL Normal 29.9-35.2 [facility] Comment on above: Performed By: #### C BC #### [facility] [address] [place] [address] Dr. Little Lindsay MCV (RBC) [Entitic vol] 92.9 fL Normal 80.0-94.0 [facility] Comment on above: Performed By: #### C BC #### [facility] [address] [place] [address] Dr. Little Lindsay MONO # 0.5 103/ul Normal 0.3-0.8 [facility] Comment on above: Performed By: #### C BC #### [facility] [address] [place] [address] Dr. Little Lindsay Monocytes/100 WBC (Bld) 6.8 % Normal 1.7-12.0 [facility] Comment on above: Performed By: #### C BC #### [facility] [address] [place] [address] Dr. Little Lindsay NEUT # 4.4 103/ul Normal 1.4-6.5 [facility] Comment on above: Performed By: #### C BC #### [facility] [address] [place] [address] Dr. Little Lindsay Neutrophils/100 WBC (Bld) 67.0 % Normal 43.0-75.0 [facility] Comment on above: Performed By: #### C BC #### [facility] [address] [place] [address] Dr. Little Lindsay Platelet mean volume (Bld) [Entitic vol] 10.8 fL Normal 9.5-13.5 [facility] Comment on above: Performed By: #### C BC #### [facility] [address] [place] [address] Dr. Little Lindsay PLT 187 103/ul Normal 150-450 [facility] Comment on above: Performed By: #### C BC #### [facility] [address] [place] [address] Dr. Little Lindsay RBC 4.80 106/ul Normal 4.70-6.10 [facility] Comment on above: Performed By: #### C BC #### [facility] [address] [place] [address] Dr. Little Lindsay WBC 6.6 103/ul Normal 4.0-11.0 [facility] Comment on above: Performed By: #### C BC #### [facility] [address] [place] [address] Dr. Little Lindsay GLYCOHEMOGLOBIN A1Con 2021 ADA RECOMMENDATION SEE BELOW Normal [facility] Comment on above: Result Comment: ADA RECOMMENDED LIMIT 4.0 - 6.0 ADA THERAPEUTIC TARGET < 7.0 ACTION SUGGESTED > 7.0 Performed By: #### A 1C #### [facility] [address] [place] [address] Dr. Little Lindsay Glucose [Mass/Vol] 111 mg/dL Normal [facility] Comment on above: Performed By: #### A 1C #### [facility] [address] [place] [address] Dr. Little Lindsay HbA1c (Bld) [Mass fraction] 5.5 % Normal 4.5-6.2 [facility] Comment on above: Performed By: #### A 1C #### [facility] [address] [place] [address] Dr. Little Lindsay LIPID PROFILEon 12-27-2021 CHOL-HDL RATIO NORM SEE BELOW Normal [facility] Comment on above: Result Comment: 3.3 - 4.4 LOW RISK 4.4 - 7.1 AVERAGE RISK 7.1 - 11.0 MODERATE RISK >11.0 HIGH RISK Performed By: #### L IPID, CMP, URIC #### [facility] [address] [address] [address] Little Lindsay Cholesterol [Mass/Vol] 195 mg/dL Normal <=200 [facility] Comment on above: Performed By: #### L IPID, CMP, URIC #### [facility] [address] [address] [address] Little Lindsay Cholesterol in HDL [Mass/Vol] 106 mg/dL Critically high 40-60 [facility] Comment on above: Performed By: #### L IPID, CMP, URIC #### [facility] [address] [address] [address] Little Lindsay Cholesterol in LDL [Mass/Vol] 83.2 mg/dL Normal [facility] Comment on above: Performed By: #### L IPID, CMP, URIC #### [facility] [address] [address] [address] Little Lindsay Cholesterol.total/Ch olesterol in HDL [Mass ratio] 1.8 {ratio} Normal [facility] Comment on above: Performed By: #### L IPID, CMP, URIC #### [facility] [address] [address] [address] Little Lindsay HDL NORMAL > or = 60 mg/dl - LOW CARDIOVASCULAR RISK <40 mg/dl - HIGH CARDIOVASCULAR RISK Normal [facility] Comment on above: Performed By: #### L IPID, CMP, URIC #### [facility] [address] [address] [address] Little Lindsay LDL CALC NORMAL SEE BELOW Normal [facility] Comment on above: Result Comment: <100 mg/dl OPTIMAL 100 - 129 mg/dl NEAR OR ABOVE OPTIMAL 130 - 159 mg/dl BORDERLINE HIGH 160 - 189 mg/dl HIGH >190 mg/dl VERY HIGH Performed By: #### L IPID, CMP, URIC #### [facility] [address] [address] [address] Little Lindsay Triglyceride [Mass/Vol] 29 mg/dL Normal <=150 [facility] Comment on above: Performed By: #### L IPID, CMP, URIC #### [facility] [address] [address] [address] Little Lindsay VLDL CALC 5.8 mg/dL Normal [facility] Comment on above: Performed By: #### L IPID, CMP, URIC #### [facility] [address] [address] [address] Little Lindsay PROF 14(COMP METB)on 022 Albumin [Mass/Vol] 4.3 g/dL Normal 3.4-5.0 [facility] Comment on above: Performed By: #### L IPID, CMP, URIC #### [facility] [address] [address] [address] Little Lindsay Albumin/Globulin [Mass ratio] 1.3 {ratio} Normal [facility] Comment on above: Performed By: #### L IPID, CMP, URIC #### [facility] [address] [address] [address] Little Lindsay ALP [Catalytic activity/Vol] 67 U/L Normal 46-116 [facility] Comment on above: Performed By: #### L IPID, CMP, URIC #### [facility] [address] [address] [address] Little Lindsay ALT [Catalytic activity/Vol] 42 U/L Normal 16-63 [facility] Comment on above: Performed By: #### L IPID, CMP, URIC #### [facility] [address] [address] [address] Little Lindsay Anion gap [Moles/Vol] 10.5 mmol/L Normal [facility] Comment on above: Performed By: #### L IPID, CMP, URIC #### [facility] [address] [address] [address] Little Lindsay AST [Catalytic activity/Vol] 22 U/L Normal 15-37 [facility] Comment on above: Performed By: #### L IPID, CMP, URIC #### [facility] [address] [address] [address] Little Lindsay Bilirubin [Mass/Vol] 0.4 mg/dL Normal 0.2-1.0 [facility] Comment on above: Performed By: #### L IPID, CMP, URIC #### [facility] [address] [address] [address] Little Lindsay Calcium [Mass/Vol] 9.1 mg/dL Normal 8.5-10.1 [facility] Comment on above: Performed By: #### L IPID, CMP, URIC #### [facility] [address] [place] [address] Dr. Little Lindsay Chloride [Moles/Vol] 102 mmol/L Normal 98-107 [facility] Comment on above: Performed By: #### L IPID, CMP, URIC #### [facility] [address] [place] [address] Dr. Little Lindsay CO2 [Moles/Vol] 28.0 mmol/L Normal 21.0-32.0 [facility] Comment on above: Performed By: #### L IPID, CMP, URIC #### [facility] [address] [place] [address] Dr. Little Lindsay Creatinine [Mass/Vol] 0.82 mg/dL Normal 0.70-1.30 [facility] Comment on above: Performed By: #### L IPID, CMP, URIC #### [facility] [address] [place] [address] Dr. Little Lindsay EGFR-AF [place] 125 mL/min/1.73m2 Normal >=60 [facility] Comment on above: Performed By: #### L IPID, CMP, URIC #### [facility] [address] [place] [address] Dr. Little Lindsay EGFR-NON AF [place]IZEN [place] 104 mL/min/1.73m2 Normal >=60 [facility] Comment on above: Performed By: #### L IPID, CMP, URIC #### [facility] [address] [place] [address] Dr. Little Lindsay Globulin (S) [Mass/Vol] 3.2 g/dL Normal [facility] Comment on above: Performed By: #### L IPID, CMP, URIC #### [facility] [address] [place] [address] Dr. Little Lindsay Glucose [Mass/Vol] 107 mg/dL Critically high 74-106 [facility] Comment on above: Performed By: #### L IPID, CMP, URIC #### [facility] [address] [place] [address] Dr. Little Lindsay Potassium [Moles/Vol] 4.5 mmol/L Normal 3.5-5.1 [facility] Comment on above: Performed By: #### L IPID, CMP, URIC #### [facility] [address] [address] [address] Little Lindsay Protein [Mass/Vol] 7.5 g/dL Normal 6.4-8.2 [facility] Comment on above: Performed By: #### L IPID, CMP, URIC #### [facility] [address] [address] [address] Little Lindsay Sodium [Moles/Vol] 136 mmol/L Normal 136-145 [facility] Comment on above: Performed By: #### L IPID, CMP, URIC #### [facility] [address] [address] [address] Little Lindsay Urea nitrogen [Mass/Vol] 15.0 mg/dL Normal 7.0-18.0 [facility] Comment on above: Performed By: #### L IPID, CMP, URIC #### [facility] [address] [address] [address] Little Lindsay Urea nitrogen/Creatinine [Mass ratio] 18.3 mg/mg Normal [facility] Comment on above: Performed By: #### L IPID, CMP, URIC #### [facility] [address] [place] [address] Dr. Little Lindsay URIC ACID SERUMon 12-27-2021 Urate [Mass/Vol] 3.5 mg/dL Normal 3.5-7.2 [facility] Comment on above: Performed By: #### L IPID, CMP, URIC #### [facility] [address] [id number] Dr[address] Little Lindsay Covid-19 PCR ([facility])on SARS-CoV-2 (COVID-19) RNA EBEN+probe Ql (Unsp spec) Not detected Normal NOT DETECTED [facility] Comment on above: Result Comment: This test is not yet approved or cleared by the [place] FDA. When there are no FDA-approved or cleared tests available, and other criteria are met, FDA can make tests available under an emergency access mechanism called an Emergency Use Authorization (EUA). The EUA for this test is supported by the Emergency Room Tech of Health and Human Service's (HHS's) declaration [...] consistent with SARS-CoV-2. Performed By: #### [facility] #### [facility] [address] [address] [address] Little Lindsay Vital Signs Date Time Vital Sign Value Performing Clinician Facility 10-20-2023 16:17-0400 Body height 182.88 cm MD Diane Davis Work Phone: [facility] 10-20-2023 16:17-0400 Body mass index (BMI) [Ratio] 27.8 kg/m2 MD Diane Davis Work Phone: [facility] 10-20-2023 16:17-0400 Body temperature 98.6 [degF] MD Diane Davis Work Phone: [facility] 10-20-2023 16:17-0400 Body weight 92.98 kg MD Diane Davis Work Phone: [facility] 10-20-2023 16:17-0400 Diastolic blood pressure 80 mm[Hg] MD Diane Davis Work Phone: [facility] 10-20-2023 16:17-0400 Heart rate 70 /min MD Diane Davis Work Phone: [facility] 10-20-2023 16:17-0400 Respiratory rate 16 /min MD Diane Davis Work Phone: [facility] 10-20-2023 16:17-0400 SaO2% (BldA) [Mass fraction] 97 % MD Diane Davis Work Phone: [facility] 10-20-2023 16:17-0400 Systolic blood pressure 127 mm[Hg] MD Diane Davis Work Phone: [facility] 09-13-2022 14:35-0400 Body height 182.88 cm Baylee Adelita Other [facility] 09-13-2022 14:35-0400 Body mass index (BMI) [Ratio] 29.35 kg/m2 Baylee Adelita Other [facility] Other 09-13-2022 14:35-0400 Body temperature 97.8 [degF] Baylee Adelita Other [facility] Other 09-13-2022 14:35-0400 Body weight 98.16 kg Baylee Adelita Other [facility] Other 09-13-2022 14:35-0400 Diastolic blood pressure 83 mm[Hg] Baylee Adelita Other [facility] Other 09-13-2022 14:35-0400 Respiratory rate 18 /min Baylee Adelita Other [facility] Other 09-13-2022 14:35-0400 SaO2% (BldA) [Mass fraction] 97 % Baylee Adelita Other [facility] Other 09-13-2022 14:35-6660 Systolic blood pressure 128 mm[Hg] Baylee Ureña Other [facility] Other Encounters Encounter Date Encounter Type Care Provider Facility Start: 10-21-2023 End: 10-21-2023 ambulatory DENIS Joce JJEN Not Available Start: 10-20-2023 End: 10-20-2023 ambulatory MD Diane Davis Work Phone: [facility] Work Phone: Start: 10-20-2023 End: 10-20-2023 Patient encounter procedure MD Diane Davis Work Phone: [facility] Work Phone: Start: 05-14-2023 End: 05-14-2023 ambulatory MIKE Monterroso [facility] Start: 04-23-2023 End: 04-23-2023 ambulatory REJI GAIL Not Available Start: 04-19-2023 End: 04-19-2023 ambulatory YUMIKO GAYKATIE Not Available Start: 04-16-2023 End: 04-16-2023 ambulatory HUMPHREY CASTELLON Not Available Start: 04-13-2023 End: 04-13-2023 ambulatory MIKE Monterroso [facility] Start: 04-08-2023 End: 04-08-2023 ambulatory HUMPHREY CASTELLON Not Available Start: 04-02-2023 End: 04-02-2023 ambulatory BAYLEE LAWS Not Available Start: 03-29-2023 End: 03-29-2023 ambulatory MIKE Monterroso [facility] Start: 12-08-2022 End: 12-08-2022 ambulatory MIKE Monterroso [facility] Start: 09-13-2022 Office outpatient vi sit 15 minutes Baylee Ureña [facility] Start: 09-13-2022 End: 09-13-2022 ambulatory Baylee Ureña Other [facility] 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 Baylee Ureña Work Phone: [facility] Work Phone: Start: 07-21-2022 End: 07-21-2022 ambulatory MIKE PERES [facility] Start: 05-20-2022 ambulatory ALEX LEW [facility] Start: 03-20-2022 End: 03-21-[address] DIANE DAVIS Facility:[facility] Start: 02-10-2022 End: 04-15-[address] DIANE DAVIS Facility:[facility] Start: 01-26-2022 End: 01-27-2022 ambulatory BAYLEE MOORE Facility:[facility] Start: 12-29-2021 Encounter for genera l adult medical examination without abnormal findings DR DIANE DAVIS [facility] Start: 12-27-2021 End: 12-28-[address] DIANE [...] Work Phone: Start: 09-13-2022 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 Little Lindsay Plan of Treatment Date Care Activity Detail Author Start: 10-20-2023 Patient referral [facility] Work Phone: Patient referral [facility] Work Phone: XR Foot - right GE 3 Views F [facility] Payers Date Payer Category Payer Self-pay [id number] 1980 Unknown [id number] 2.16.84 [id number] 1980 Unknown [id number] 2.16.84 [id number] 1980 Unknown [id number] 2.16.84 0.1.922013.3.579.2.593 1980 Unknown [id number] 2.16.84 0.1.172901.3.579.2.593 1980 Unknown [id number] 2.16.84 0.1.217634.3.579.2.593 1980 Unknown [id number] 2.16.84 0.1.410623.3.579.2.593 1980 Unknown [id number] 2.16.84 0.1.994008.3.579.2.1258 1980 Unknown [id number] 2.16.840 .1.485997.3.579.2.1258 1980 Unknown [id number] 2.16.840 .1.879967.3.579.2.1258 1980 Unknown [id number] .16.840 .1.882890.3.579.2.1258 1980 Unknown [id number] .16.840 .1.866712.3.579.2.1258 1980 Unknown [id number] 2.16.840 .1.088893.3.579.2.1258 1980 Unknown [id number] 2.16.840 .1.776206.3.579.2.1259 1959 Private Health Insurance [id number] Unknown [id number] 2.16.8 40.1.698914.3.579.2.531 Social History Date Type Detail Facility Unknown if ever smoked [facility] Other Sex Assigned At Sex Assigned At Bir th [facility] 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 Mike Peres MD [facility] 04-13-2023 Note Post-Operative Follo w-up: Patient [...] plan with the patient. Mike Peres MD [facility] 03-29-2023 Note Patient: Lucas Lewis Procedure Summary Date: 03/29/23 Room / Location: [facility] OR [address] [place] [address] [facility] OR Anesthesia Start: 728 Anesthesia Stop: [...] per anesthesia protocol. No notable events documented. [facility] 03-29-2023 Note Patient: Lucas Lewis Procedure Summary Date: 03/29/23 Room / Location: [address] OR Anesthesia Start: 728 Anesthesia Stop: Procedure: ELBOW ARTHROSCOPY, EXTENSIVE DEBRIDEMENT (Left: Elbow) Diagnosis: Primary osteoarthritis, left elbow (Primary osteoarthritis, left elbow [M19.022]) Surgeons: Mike Peres MD Responsible Provider: Jane Cassidy MD Anesthesia Type: general, regional ASA Status: 1 Anesthesia Post [facility] Patient Monitor: direct observation Transport: uneventful Patient condition is: stable [facility] 03-29-2023 Note Airway Date/Time: 03/29/2023 7:35 AM Urgency: elective General Information and Staff Patient location during procedure: OR Anesthesiologist: Jane Cassidy MD Resident/UPSET OPERATOR/CAA: TALISHA Estrada Performed: resident/UPSET OPERATOR/CAA Indications and Patient Condition Indications for airway [...] 1 Number of other approaches attempted: 0 [facility] 03-29-2023 Note Peripheral Block Patient location during procedure: pre-op Start time: 03/29/2023 6:58 AM End time: 03/29/2023 7:14 AM Reason for block: at surgeon's request and post-op pain management Staffing Performed: resident/UPSET OPERATOR/CAA Resident/UPSET OPERATOR: Sandoval Hoyt MD Preanesthetic Checklist Completed: patient [...] rate change: no Slow fractionated injection: yes [facility] 03-29-2023 Note Patient: Lucas Lewis Procedure Information Date/Time: 03/29/23729 Procedure: ELBOW ARTHROSCOPY, EXTENSIVE DEBRIDEMENT (Left: Elbow) Location: [facility] OR [address] [place] [address] OR Surgeons: Mike Peres MD Past Medical [...] Plan discussed with CAA. 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 Do not wear perfume, make-up, nail samoan, or lotions on the day of your [...] need to make any changes, please call [phone]. Notify your surgeon if you develop any illness such as a cold, cough, fever, sore throat or vomiting between now and your surgery. Thank you for entrusting us with your care. [facility] Surgical Services Team [facility] 12-08-2022 Note Subjective: Chief Complaint: left [...] his pain. 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 Social History Occupational History Not [...] intact to light touch distally Imaging: Where: [facility] Date: 05/01/2022 MRI left [...] personal documentation from me. Mike Peres MD [facility] 09-13-2022 Evaluation note Encounter Date Diagnosis [...] no improvement in 5 to 7 days [facility] 03-21-2023 NoteSubjective: Chief Complaint: left elbow [...] his pain. 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 Previous Treatments: PT Social History [...] additional personal documentation from me. Mike Peres [facility]2023 NoteOrthopedic Surgery Subjective HPI Chief complaint: [...] his pain. 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 Previous Treatments: PT Patient History [...] osteochondritis dissecans Francisco Escoto, MS3 Orthopedic Surgery [facility] Patient seen and discussed with Dr. Lew [...] touch with him about options for further treatment.[facility] 01-26-2022 NotePROCEDURE: XR ELBOW LT MIN 3 VIEWS COMPARISON: None. HISTORY: Medial epicondylitis FINDINGS: BONES:No acute fracture or dislocation. Degenerative changes with marginal osteophyte formation SOFT TISSUES:Negative. No visible soft tissue swelling. EFFUSION:Elbow joint effusion OTHER: Negative. IMPRESSION: Mild degenerative changes with elbow joint effusion Electronically authenticated by: MACARIO COE Date: 2022-01-26 19:59[facility] noteNo assessment information [facility] Work Phone: Evaluation note* Diagnosis Onset Date Resolution Status Fracture of right great toe acute [facility] Work Phone: History general Narrative - Reported* Type Description Date Surgical History fracture repair Surgical History leg fracture [facility] Other Summary Purpose Family History No Family [...] and content) DATE CREATED AUTHOR 04/24/2022 [facility] DATE CREATED AUTHOR AUTHOR'S ORGANIZ ATION 05/15/2023 [facility] DATE CREATED AUTHOR AUTHOR'S ORGANIZ ATION 10/23/2023 [facility] EPIC DATE CREATED AUTHOR AUTHOR'S ORGANIZ ATION 11/01/2023 [facility] REASON FOR [...] BE BASED ON THE PRIMARY CLINICAL RECORDS. [employer] provides no warranty or guarantee of the accuracy or completeness of information in this document.
[2024-03-04 10:02] LABS: Estimated Average Glucose 100 mg/dL; Glycohemoglobin A1C 5.1 % (4.5-6.2)
[2024-03-04 10:03] LABS: Basophils Absolute Auto 0.1 10^3/uL (0.0-0.1); Eosinophils Absolute Auto 0.3 10^3/uL (0.0-0.7); Hematocrit 44.3 % (42.0-54.0); Hemoglobin 14.9 g/dL (14.0-18.0); Immature Granulocytes Abs Auto 0.01 10^3/uL (0.00-0.03); Immature Granulocytes Pct Auto 0.2 % (0.0-0.5); Lymphocytes Absolute Auto 1.6 10^3/uL (1.2-3.8); Mean Corpuscular HGB Conc 33.6 g/dL (29.9-35.2); Mean Corpuscular Hemoglobin 31.4 pg (25.9-34.0); Mean Corpuscular Volume 93.3 fL (80.0-94.0); Mean Platelet Volume 11.1 fL (9.5-13.5); Monocytes Absolute Auto 0.4 10^3/uL (0.3-0.8); Monocytes Percent Auto 8.5 % (1.7-12.0); Neutrophils Absolute Auto 2.9 10^3/uL (1.4-6.5); Neutrophils Percent Auto 55.3 % (43.0-75.0); Platelet Count 177 10^3/uL (150-450); Red Blood Count 4.75 10^6/uL (4.70-6.10); Red Cell Distribution Width 13.7 % (11.0-15.0); White Blood Count 5.2 10^3/uL (4.0-11.0)
[2024-03-04 10:46] LABS: Prostate Specific Antigen Scrn 0.49 ng/mL (<=4.00)
[2024-03-04 11:22] LABS: Internal Control Within Normal Limits; Occult Blood Negative
[2024-03-04 11:56] LABS: Alanine Aminotransferase 36 U/L (16-63); Albumin Globulin Ratio 1.2; Albumin Level 3.9 g/dL (3.4-5.0); Alkaline Phosphatase 57 U/L (46-116); Anion Gap 13.6; Aspartate Amino Transferase 27 U/L (15-37); BUN Creatinine Ratio 7.4; Bilirubin Total 0.4 mg/dL (0.2-1.0); Calcium 8.6 mg/dL (8.5-10.1); Carbon Dioxide 28.2 mmol/L (21.0-32.0); Chloride 105 mmol/L (98-107); Cholesterol 179 mg/dL (<=200); Estimated GFR (African America >60 (>=60 mL/min/1.73m^2); Estimated GFR (Non-African Ame >60 (>=60 mL/min/1.73m^2); Free T3 3.42 pg/mL (2.18-3.98); Globulin 3.2 g/dL; Glucose 89 mg/dL (74-106); HDL Cholesterol 91 mg/dL (40-60); Potassium 4.8 mmol/L (3.5-5.1); Sodium 142 mmol/L (136-145); Thyroid Stimulating Hormone 0.958 uIU/mL (0.358-3.740); Total Protein 7.1 g/dL (6.4-8.2); Triglycerides 35 mg/dL (<=150)
== END 2024-03-04 09:29 | disposition home or self-care (01) ==
LOC: LAB 09:29
PROVIDERS: PCP Family Medicine; Visit Provider Family Medicine
DX: Z00.00 Encounter for general adult medical examination without abnormal findings (principal)
CPT/HCPCS: 36415; 80053; 80061; 83036; 84436; 84443; 84481; 85025; G0103; G0328

== ENCOUNTER 2025-01-05 09:07 | Outpatient (OUT) | payer OTHER, SELFPAY ==
--- OUTSIDE RECORDS SUMMARY | 2023-12-08 11:00 | XMS_ITS ---
Author Organization [facility] in [place] Address [address] [place] [address] Care Team Providers Care Polish Compounder Name Role Phone Benitoregan Riley Primary Care Provider [phone] Alverto Kaiser Unavailable [phone] Allergies Allergen (clinical drug ingredient) Drug/Non Drug Allergy documented on EMR Reaction Allergy Type Onset Date Status *ALLERGIES REVIEWED- NO CHANGES (uncoded) Unknown Allergy Active prednisone Prednisone rash Drug Allergy Activ e REASON FOR VISIT 6 week f/u Medications Medication SIG (Take, Route, Frequency, Duration) Notes Start Date End Date Status Albuterol Sulfate HFA 108 (90 Base) MCG/ACT INHALE 2 PUFFS BY MOUTH 4 TIMES A DAY NEEDED for 25 Active Ibuprofen 400 MG 1 tablet with food o r milk as needed Orally Three times a day Active NIFEdipine ER Osmotic Release 30 MG TAKE 1 TABLET BY MOUTH EVERY DAY for 90 Active Meloxicam 15 MG TAKE 1 TABLET BY ZAY TH ONCE A DAY *DO NOT TAKE WITH IBUPROFEN* for 30 Active Social History Tobacco Use: Social History Observation Description Date Details (start date - stop date) Never Smoker NA - NA Tobacco Use/Smoking Question Answer Notes Patient is a nonsmoker Vital Signs Weight 221 lbs 12/08/2023 Height 72 in 12/08/2023 Temperature 98 degrees Fahrenheit 12/08/2023 Heart Rate 76 /min 12/08/2023 Respiratory Rate 16 /min 12/08/2023 BMI 29.97 kg/m2 12/08/2023 Encounters Encounter Location Date Provider Diagnosis [facility] (PODIAT[facility]) [address] [place] [address] [place] [address] 12/08/2023 Alverto Kaiser Other acquired deformities of left foot M21.6X2 ; Other acquired deformities of right foot M21.6X1 ; Right ankle pain M25.571 and Left ankle pain M25.572 Assessments Encounter Date Diagnosis (ICD Code) Assessment Notes Treatment Notes Treatment Clinical Notes Section Notes 12/08/2023 Other acquired deformities of left foot (ICD-10 - M21.6X2) Patient has bilateral skew foot with hindfoot varus. X-rays of his ankle today show no significant deformity or evidence of arthritis. 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 He has been using OTC inserts and we discussed shoe modification as well as well as replacement of his work boots given the increased wear on his lateral heel of the sole of the boot. ASO ankle brace did help some of his symptoms however he was not able to tolerate it all day therefore I did discuss alternative OTC ankle braces which she may purchase on his own.I did briefly discuss surgery and given its long recovery time I recommend that he continue nonsurgical treatment for now as does not preventing him from performing any activity however if his symptoms increase he should call for reappointment. 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 X-rays of his ankle today show no significant deformity or evidence of arthritis. 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 He has been using OTC inserts and we discussed shoe modification as well as well as replacement of his work boots given the increased wear on his lateral heel of the sole of the boot. ASO ankle brace did help some of his symptoms however he was not able to tolerate it all day therefore I did discuss alternative OTC ankle braces which she may purchase on his own.I did briefly discuss surgery and given its long recovery time I recommend that he continue nonsurgical treatment for now as does not preventing him from performing any activity however if his symptoms increase he should call for reappointment. Pending Test Test Name Order Date XR Ankle LT (3 views) * (164) 12/08/2023 XR Ankle RT (3 views) * (161) 12/08/2023 Progress Notes * Marky LEWISDOB:1980 (43 yo M)Acc No.[id number]:12/08/2023 Follow Up Patient: Marky FERMIN Provider: Shamar Kaiser DPM, MS :1980 A ge:42 Y S ex:Male Date:12/08/2023 Address:[address] [place], [place] [id number] Pcp:DIANE LONG Check In:02:57 PM ESTCheck O ut:03:38 PM EST Subjective: * Chief Complaints: * 6 week f/u * HPI: G eneral: Pt here for follow up bilateral foot pain x many years. PT states on feet all day long at work. Tried bilateral ASO braces but states made bottom of feet hurt so stopped after 3 or 4 days of using them. Started meloxicam. States noticed on weekends when not working pain is less but as weekdays go by and by the end of the week after on feet all week long pain returns. * ROS: G eneral/Constitutional: Chills d enies. F ever d enies. W eight gain?denies. W eight loss d enies. S kin: Skin Ulcers d enies. S kin lesion(s) d enies. ? C ardiovascular: Difficulty breathing on exertion d enies. L eg cramps?denies. E bailey d enies. C hest pain d enies. R espiratory: Difficulty breathing d enies. D yspnea d enies.?Cough d enies. G astrointestinal: Diarrhea d enies. N ausea d enies. V omiting?denies. M usculoskeletal: Bone/Joint Symptoms d enies. C milly Pain d enies.?Leg cramps d enies. N eurologic: Numbness d enies. T ingling d enies . G ait abnormality d enies. ? H ematology: Anemia D enies. E asy bruising d enies. ? A ll Other Systems: Review of Systems (ROS) S ee HPI for details,All others negative except those mentioned in HPI. * Active Problem List Z00.00 Well adult Modified On:02/19/2023 Status:confirmed M25.562 Knee pain, left Modified On:10/02/2022 Status:confirmed J06.9 Upper respiratory in fection Modified On:10/02/2022 Status:confirmed J45.909 AB (asthmatic bronch itis) Modified On:10/02/2022 Status:confirmed M23.92 Internal derangement of knee, left Modified On:10/02/2022 Status:confirmed S83.242A Acute medial menisca l tear, left, initial encounter Modified On:10/02/2022 Status:confirmed S61.411A Laceration of right hand without foreign body, initial encounter Modified On:10/02/2022 Status:confirmed L03.019 Paronychia of finger Modified On:10/02/2022 Status:confirmed I83.10 Varicose veins of lo wer extremities with inflammation Modified On:10/02/2022 Status:confirmed M77.00 Golfer's elbow Modified On:10/02/2022 Status:confirmed Z00.00 Encounter for routin e adult medical examination Modified On:10/02/2022 Status:confirmed S32.040A Closed compression f racture of fourth lumbar vertebra, initial encounter Modified On:10/02/2022 Status:confirmed I82.819 Embolism and thrombo sis of superficial veins of unspecified lower extremity Modified On:10/02/2022 Status:confirmed S92.315S Nondisplaced fractur e of first metatarsal bone, left foot, sequela Modified On:10/02/2022 Status:confirmed M79.673 Foot pain Modified On:10/02/2022 Status:confirmed S01.81XA Facial laceration Modified On:10/02/2022 Status:confirmed E66.3 Over weight Modified On:06/02/2023W/U Status:confirmed 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, left elbow Modified On:09/04/2022 Status:confirmed J45.20 Mild intermittent as thma, uncomplicated Modified On:09/04/2022 Status:confirmed I83.893 Varicose veins of bi lateral lower extremities with other complications Modified On:09/04/2022 Status:confirmed I73.00 Raynaud's syndrome w ithout gangrene Modified On:09/04/2022 Status:confirmed M79.672 Left foot pain Modified On:10/28/2023 Status:confirmed M79.671 Right foot pain Modified On:10/28/2023 Status:confirmed M21.6X1 Other acquired defor mities of right foot Modified On:10/28/2023 Status:confirmed M21.6X2 Other acquired defor mities of left foot Modified On:10/28/2023 Status:confirmed M25.572 Left ankle pain Modified On:12/08/2023 Status:confirmed * Medical History: * Surgical History: S cope of left knee Rt ankle fracture repair Pin left 5th digit Repair of tendon rt middle finger VX Endovenous Ablation Bilat * Hospitalization/Major Diagno stic Procedure: J ust for surgeries * Family History: F ather: alive 76 yrs, Colon CA, diagnosed with Other malignant neoplasm of unspecified site.?Mother: alive 76 yrs, diagnosed with Diabetes mellitus without mention of complication, type II or unspecified type, not stated as uncontrolled. B rother(s): alive. 1 brother(s) - healthy. . * Social History: T obacco Use: T obacco Use/Smoking P atient is a n onsmoker * Medications: T akingAlbuterol Sulfate HFA 108 (90 Base) MCG/ACT Aerosol Solution INHALE 2 PUFFS BY MOUTH 4 TIMES A DAY NEEDED Ibuprofen 400 MG Tablet 1 tablet with food or milk as needed Orally Three times a day Meloxicam 15 MG Tablet TAKE 1 TABLET BY MOUTH ONCE A DAY *DO NOT TAKE WITH IBUPROFEN* NIFEdipine ER Osmotic Release 30 MG Tablet Extended Release 24 Hour TAKE 1 TABLET BY MOUTH EVERY DAY Medication List reviewed and reconciled with the patientTaking Albuterol Sulfate HFA 108 (90 Base) MCG/ACT Aerosol Solution INHALE 2 PUFFS BY MOUTH 4 TIMES A DAY NEEDED Taking Ibuprofen 400 MG Tablet 1 tablet with food or milk as needed Orally Three times a day Taking Meloxicam 15 MG Tablet TAKE 1 TABLET BY MOUTH ONCE A DAY *DO NOT TAKE WITH IBUPROFEN* Taking NIFEdipine ER Osmotic Release 30 MG Tablet Extended Release 24 Hour TAKE 1 TABLET BY MOUTH EVERY DAY Medication List reviewed and reconciled with the patient * Allergies: P rednisone: rash*ALLERGIES REVIEWED-NO CHANGES: Allergyno[Allergies Verified] Objective: * Vitals: W t:221lbs, Ht: 72 in, Temp:98F, HR:76/min, RR:16/min, BMI:29.97Index, Pain scale:31-10, Ht-cm: 182.88 cm, Wt-k.24 kg. * Examination: P odiatry Examination: SKIN: s kin intact, n o sign of infection. MUSCULOSKELETAL: H indfoot varus is noted bilaterally when in stance. Static examination reveals 0 degrees of subtalar joint eversion and 30 degrees of subtalar joint inversion. Negative anterior drawer. NEUROLOGICAL: l ight touch sensation intact, n egative tinel's sign. VASCULAR: P edal pulses palpable, C apillaryrefill is brisk to toe, D igitalhair intact. Assessment: * Assessment: 1. O ther acquired deformities of left foot - M21.6X2 (Primary) 2 . O ther acquired deformities of right foot - M21.6X1 3 . R ight ankle pain - M25.571 4 . L eft ankle pain - M25.572 Plan: * Treatment: 2. R ight ankle pain I maging: XR Ankle RT (3 views) * (161) 3. L eft ankle pain I maging: XR Ankle LT (3 views) * (164) * Procedure Codes: * * Sign off status: Completed Visit Status: C HK (Check Out) true * Provider: Shamar Kaiser DPM, MS Date: 0 12/08/2023 Generated for Go pierre/Angela/Elvieitting on: 0 01/05/2025 09:10 AM EDT History and Physical Notes * HPI (History of Present Illness) Category Sub-Category Detail Notes Category Not es General Pt here for fol low up bilateral foot pain x many years. PT states on feet all day long at work. Tried bilateral ASO braces but states made bottom of feet hurt so stopped after 3 or 4 days of using them. Started meloxicam. States noticed on weekends when not working pain is less but as weekdays go by and by the end of the week after on feet all week long pain returns. Examination Category Sub-Category Detail Notes Category Not es Podiatry Examination SKIN: skin intact, no sign of infection MUSCULOSKELETAL: Hindfoot varus is no alber bilaterally when in stance. Static examination reveals 0 degrees of subtalar joint eversion and 30 degrees of subtalar joint inversion. Negative anterior drawer NEUROLOGICAL: light touch sensatio n intact, negative tinel's sign VASCULAR: Pedal pulses palpable, Capillary refill is brisk to toe, Digital hair intact
--- OUTSIDE RECORDS SUMMARY | 2024-02-24 11:30 | XMS_ITS ---
Author Organization [facility] in [place] Address [address] [place] [address] Care Team Providers Care Housekeeping Supervisor Hotel Name Role Phone Riley Davis Primary Care Provider [phone] Allergies Allergen (clinical drug ingredient) Drug/Non Drug Allergy documented on EMR Reaction Allergy Type Onset Date Status *ALLERGIES REVIEWED- NO CHANGES (uncoded) Unknown Allergy Active prednisone Prednisone rash Drug Allergy Activ e REASON FOR VISIT Wellness- ppw in room to fill out, Due for yearly labs Medications Medication SIG (Take, Route, Frequency, Duration) Notes Start Date End Date Status Albuterol Sulfate HFA 108 (90 Base) MCG/ACT INHALE 2 PUFFS BY MOUTH 4 TIMES A DAY NEEDED for 25 PRN Active Social History Tobacco Use: Social History Observation Description Date Details (start date - stop date) Never Smoker NA - NA Tobacco Use/Smoking Question Answer Notes Patient is a nonsmoker Vital Signs Weight 203.0 lbs 02/24/2024 Height 72 in 02/24/2024 Blood pressure systolic 120 mm Hg 02/24/20 24 Blood pressure diastolic 80 mm Hg 024 BMI 27.53 kg/m2 02/24/2024 Encounters Encounter Location Date Provider Diagnosis [facility] [address] [place] [address] 02/24/2024 Riley Davis Well adult Z00.0 0 Assessments Encounter Date Diagnosis (ICD Code) Assessment Notes Treatment Notes Treatment Clinical Notes Section Notes 02/24/2024 Well adult (ICD-10 - Z00.00) want to hold on scope - + fh colon cancer Plan Of Treatment Treatment Notes Assessment Notes Well adult want to hold on scop e - + fh colon cancer Pending Test Test Name Order Date CMP (COMPLETE METABOLIC PANEL) HEMOGLOBIN A1C (GLYCO) 02/24/2024 LIPID PANEL (CHOL/TRIG/HDL/LDL) 02/24/20 CBC WITH DIFF 02/24/2024 PSA, TOTAL 02/24/2024 STOOL OCCULT BLOOD 02/24/2024 THYROID PANEL (T4/TSH/FREE T3) Progress Notes * Marky LEWISDOB:1980 (43 yo M)Acc No.[id number]:02/24/2024 Progress Note Patient: Marky FERMIN Provider: Gerri Davis ([facility])MD :1980 A ge:43 Y S ex:Male Date:02/24/2024 Address:[address] [place], [place] [id number] Check In:03:32 PM ESTCheck O ut:04:15 PM EST Subjective: * Chief Complaints: * 1 . Wellness- ppw in room to fill out. 2. Due for yearly labs. * HPI: D epression Screening: PHQ-2 (2015 Edition) L ittle interest or pleasure in doing things??Not at all F eeling down, depressed, or hopeless? N ot at all T otal Score 0 disucsed raynauds - not needing meds yet dusccussed low back - sgtable. * ROS: E ENT: hearing changes d enies. v isual changes d enies.?non-healing mouth sores d enies. s wollen glands or neck lumps d enies. h oarseness d enies. s ore throat d enies. d ifficulty swallowing d enies. n ose bleeds d enies. n yolie congestion d enies. e ar ache d enies. e ar discharge?denies. r inging in ears d enies. l ight sensitivity d enies. e ye pain d enies. b lurring d enies. e ye irritation d enies. d ouble vision d enies.?vision loss d enies. G eneral/Constitutional: Sweats: D enies. F atigue d enies. S leep problems d enies. A norexia d enies. M alaise d enies. W eight loss d enies.?Fatigue or Weakness d enies. F ever or Chills d enies. C ardiovascular: Shortness of Breath w/lying flat d enies. L ightheadedness/dizziness d enies. C hest tightness/ heavy pressure d enies. S welling of legs, ankles, or feet d enies. W aking up with shortness of breath d enies. C hest pain denies. P alpitations d enies. W eight gain d enies. R espiratory: Chronic or frequent cough d enies. C oughing up blood?denies. D ifficulty breathing d enies. P roductive cough d enies. S noring?denies. S hortness of breath that awakens from sleep (PND) d enies. C hest pain d enies. S putum production d enies. W heezing d enies. M usculoskeletal: Joint pain d enies. J oint Fluid d enies. B ack pain d enies. K nee pain d enies. N amanda pain d enies. J oint Stiffness d enies. M uscle cramps d enies. W eakness of muscles d enies. A rthritis d enies. M uscle aches d enies. P ain in shoulder(s) d enies. S wollen joints d enies. * Active Problem List Z00.00 Well adult Modified On:02/19/2023U Status:confirmed M25.562 Knee pain, left Modified On:10/02/2022 Status:confirmed J06.9 Upper respiratory in fection Modified On:10/02/2022U Status:confirmed J45.909 AB (asthmatic bronch itis) Modified [...] Modified On:10/02/2022 Status:confirmed E66.3 Over weight Modified On:10/02/2022 Status:confirmed 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, left elbow Modified On:09/04/2022 Status:confirmed J45.20 Mild intermittent as thma, uncomplicated Modified On:09/04/2022 Status:confirmed I83.893 Varicose veins of bi lateral lower extremities with other complications Modified On:09/04/2022 Status:confirmed I73.00 Raynaud's syndrome w ithout gangrene Modified On:09/04/2022U Status:confirmed M79.672 Left foot pain Modified On:10/28/2023U Status:confirmed M79.671 Right foot pain Modified On:10/28/2023U Status:confirmed M21.6X1 Other acquired defor mities of right foot Modified On:10/28/2023U Status:confirmed M21.6X2 Other acquired defor mities of left foot Modified On:06/27/2024W/U Status:confirmed M25.572 Left ankle pain Modified On:12/08/2023W/U Status:confirmed * Medical History: N ondisplaced fracture of first metatarsal bone, left foot, sequela, Acute medial meniscal tear, left, initial encounter, Closed compression fracture of fourth lumbar vertebra, initial encounter, Embolism and thrombosis of superficial veins of unspecified lower extremity, Over weight, Golfer's elbow, Foot pain, Laceration of right hand without foreign body, initial encounter, Internal derangement of knee, left, Knee pain, left, AB (asthmatic bronchitis), Varicose veins of lower extremities with inflammation, Upper respiratory infection, Facial laceration, Embolism and thrombosis of superficial veins of unspecified lower extremity, Well adult, Encounter for routine adult medical examination, Paronychia of finger. * Surgical History: S cope of left knee , Rt ankle fracture repair , Pin left 5th digit , Repair of tendon rt middle finger , VX Endovenous Ablation Bilat , Left Elbow Scope 04/2024. * Hospitalization/Major Diagno stic Procedure: J ust for surgeries . * Family History: F ather: alive 76 [...] is a n onsmoker * Medications: T aking Albuterol Sulfate HFA 108 (90 Base) MCG/ACT Aerosol Solution INHALE 2 PUFFS BY MOUTH 4 TIMES A DAY NEEDED , Notes to Pharmacist: PRN, Discontinued Ibuprofen 400 MG Tablet 1 tablet with food or milk as needed Orally Three times a day , Notes to Pharmacist: PRN, Discontinued Meloxicam 15 MG Tablet TAKE 1 TABLET BY MOUTH ONCE A DAY *DO NOT TAKE WITH IBUPROFEN* , Discontinued NIFEdipine ER Osmotic Release 30 MG Tablet Extended Release 24 Hour TAKE 1 TABLET BY MOUTH EVERY DAY , Medication List reviewed and reconciled with the patient * Allergies: P rednisone: rash - Allergy, *ALLERGIES REVIEWED-NO CHANGES: Allergy. Objective: * Vitals: W t:203.0lbs, Ht: 72 in, BP:120/80mm Hg, BMI:27.53Index, Ht-cm: 182.88 cm, Wt-k.08 kg. * Examination: P hysical Exam: GENERAL: w ell developed, well nourished, in no acute distress. HEAD: n ormocephalic/atraumatic. EYES: p upils equal, round and reactive to light, conjunctivae and sclerae normal. EARS: n o deformity or lesion of external ear, canals and TM appear normal bilaterally, TM's intact, not inflamed with normal light reflex, hearing grossly normal to conversational speech. NOSE: n o deformity, discharge, inflammation, or lesions.? MOUTH: m ucous membranes moist, normal oropharynx and posterior pharynx without lesions or exudates, tongue normal, dentition normal. NECK: n amanda supple, no masses or palpable cervical nodes, trachea midline, thyroid without nodules, masses, tenderness, or enlargement. CHEST: n o chest wall deformity, no chest wall tenderness.? LUNGS: n ormal respiratory effort and clear to auscultation, no wheezes, rales, or rhonchi, good air exchange. CARDIO: r egular rate and rhythm, normal S1 and S2, nor murmur, rub, or gallop. PULSES: n ormal capillary refill. ABDOMEN: s oft, non-distended, non-tender, no masses. MUSCULOSKELETAL: n o deformity or scoliosis noted, normal range of motion, joints normal, no erythema, edema, effusion, or ecchymosis. EXTREMITY: n o clubbing, cyanosis, edema, or deformity with normal ROM in both upper and lower bilateral extremities. NEUROLOGIC: g rossly normal. SKIN: n o rashes, ulcerations, or suspicious lesions. LYMPH NODES: n o cervical adenopathy, nodes normal. MENTAL STATUS: a lert and oriented x3, normal mood and affect. Assessment: * Assessment: 1. W ell adult - Z00.00 (Primary) Plan: * Treatment: * Preventive Medicine: Screenings/Counseling: B ME ACTION PLAN Above Normal BMI Follow-up D ietary management education, guidance, and counseling * * Sign off status: Completed Visit Status: C HK (Check Out) true * Provider: Gerri Davis ([facility])MD Date: 1 Generated for Printi ng/Faxing/eTransmitting on: 0 01/05/2025 09:10 AM EDT History and Physical Notes * HPI (History of Present Illness) Category Sub-Category Detail Notes Category Not es Depression Screening PHQ-2 (2015 Edition) Little interest or pleasure in doing things?: Not at all disucsed raynauds - not needing meds yet dusccussed low back - sgtable Feeling down, depressed, or hopeless?: N ot at all Total Score: 0 Examination Category Sub-Category Detail Notes Category Not es Physical Exam GENERAL: well developed, well nourished, in no acute distress HEAD: normocephalic/atraum atic EYES: pupils equal, round and reactive to light, conjunctivae and sclerae normal EARS: no deformity or lesi on of external ear, canals and TM appear normal bilaterally, TM's intact, not inflamed with normal light reflex, hearing grossly normal to conversational speech NOSE: no deformity, discha rge, inflammation, or lesions MOUTH: mucous membranes valdemar st, normal oropharynx and posterior pharynx without lesions or exudates, tongue normal, dentition normal NECK: neck supple, no mass es or palpable cervical nodes, trachea midline, thyroid without nodules, masses, tenderness, or enlargement CHEST: no chest wall deform ity, no chest wall tenderness LUNGS: normal respiratory e ffort and clear to auscultation, no wheezes, rales, or rhonchi, good air exchange CARDIO: regular rate and rhy thm, normal S1 and S2, nor murmur, rub, or gallop PULSES: normal capillary ref ill ABDOMEN: soft, non-distended, non-tender, no masses RECTAL: MUSCULOSKELETAL: no deformity or scol iosis noted, normal range of motion, joints normal, no erythema, edema, effusion, or ecchymosis EXTREMITY: no clubbing, cyanosi s, edema, or deformity with normal ROM in both upper and lower bilateral extremities NEUROLOGIC: grossly normal SKIN: no rashes, ulceratio ns, or suspicious lesions LYMPH NODES: no cervical adenopat hy, nodes normal MENTAL STATUS: alert and oriented x 3, normal mood and affect
--- OUTSIDE RECORDS SUMMARY | 2024-03-05 07:22 | XMS_ITS ---
Author Organization [facility] in [place] Address [address] [place] [address] Care Team Providers Care Aviculturist Name Role Phone Riley Davis Primary Care Provider REASON FOR VISIT Lab Results Encounters Encounter Location Date Provider Diagnosis [facility] [address] [place] [address] 03/05/2024 Riley Davis Plan Of Treatment No Information Progress Notes * KALA MarkyDOB:1980 (43 yo M)Acc No.[id number]:03/05/2024 Patient: Marky FERMIN :1980 A ge:43 Y S ex:Male Address:[address] [place] [address], [phone] * true * Date: Generated for Go pierre/Angela/eTransmitting on: 0 01/05/2025 09:10 AM EDT
--- OUTSIDE RECORDS SUMMARY | 2024-04-24 05:55 | XMS_ITS ---
Author Organization [facility] in [place] Address [address] [place] [address] Care Team Providers Care Ditch Tender Name Role Phone Riley Davis Primary Care Provider REASON FOR VISIT needs yearly Encounters Encounter Location Date Provider Diagnosis [facility] [address] [place] [address] 04/24/2024 Riley Davis Plan Of Treatment No Information Progress Notes * KALA MarkyDOB:1980 (43 yo M)Acc No.[id number]:04/24/2024 Patient: Marky FERMIN :1980 A ge:43 Y S ex:Male Address:[address] [place] [address], [phone] * true * Date: Generated for Go pierre/Angela/eTransmitting on: 0 01/05/2025 09:09 AM EDT
--- OUTSIDE RECORDS SUMMARY | 2025-01-05 04:30 | XMS_ITS ---
Author Organization [facility] in [place] Address [address] [place] [address] Care Team Providers Care Rail Car Repairman Name Role Phone Riley Davis Primary Care Provider Allergies Allergen (clinical drug ingredient) Drug/Non Drug Allergy documented on EMR Reaction Allergy Type Onset Date Status *ALLERGIES REVIEWED- NO CHANGES (uncoded) Unknown Allergy Active prednisone Prednisone rash Drug Allergy Activ e REASON FOR VISIT Presents to office alone for yearly wellness exam, Has been having issues with vision over the past2-3 month. Has not seen eye doctor eye. Medications Medication SIG (Take, Route, Frequency, Duration) Notes Start Date End Date Status Albuterol Sulfate HFA 108 (90 Base) MCG/ACT INHALE 2 PUFFS BY MOUTH 4 TIMES A DAY NEEDED for 25 PRN Active Social History Tobacco Use: Social History Observation Description Date Details (start date - stop date) Never Smoker NA - NA Tobacco Use/Smoking Question Answer Notes Patient is a nonsmoker AUDIT-C (Standard) Question Answer Notes Did you have a drink containing alcohol in the p ast year? No Points 0 Interpretation Negative Vital Signs Weight 209.2 lbs 01/05/2025 Height 72 in 01/05/2025 Blood pressure systolic 124 mm Hg 01/06/20 25 Blood pressure diastolic 82 mm Hg 025 BMI 28.37 kg/m2 01/05/2025 Encounters Encounter Location Date Provider Diagnosis [facility] [address] [place] [address] 01/05/2025 Riley Ryan Well adult Z00.0 0 Assessments Encounter Date Diagnosis (ICD Code) Assessment Notes Treatment Notes Treatment Clinical Notes Section Notes 01/05/2025 Well adult (ICD-10 - Z00.00) Plan Of Treatment Medication Medication Name Sig Start Date Stop Date Notes Albuterol Sulfate HFA 108 (9 0 Base) MCG/ACT INHALE 2 PUFFS BY MOUTH 4 TIMES A DAY NEEDED for 25 PRN Pending Test Test Name Order Date HEMOGLOBIN A1C (GLYCO) 01/05/2025 INSULIN, TOTAL 01/05/2025 LIPID PANEL (CHOL/TRIG/HDL/LDL) 01/06/20 25 THYROID PANEL (T4/TSH/FREE T3) 5 CMP (COMP MET QUIGLEY) w/eGFR CKD-EPI 2024 CBC WITH DIFF 01/05/2025 Progress Notes * Marky LEWISDOB:1980 (44 yo M)Acc No.[id number]:01/05/2025 UNLOCKED PROGRESS NOTE Progress Note Patient: Marky FERMIN Provider: Gerri Davis ([facility])MD :1980 A ge:44 Y S ex:Male Date:01/05/2025 Address:[address] [place], [place] [id number] Check In:08:35 AM ESTCheck O ut:08:58 AM EST Subjective: * Chief Complaints: * 1 . Presents to office alone for yearly wellness exam. 2. Has been having issues with vision over the past 2-3 month. Has not seen eye doctor eye.. * HPI: G eneral: Change in vision - needs labs Left elbow - some pain -. * ROS: E ENT: hearing changes d [...] enies. S wollen joints d enies. * Medical History: N ondisplaced fracture of [...] Use/Smoking P atient is a n onsmoker D rug/Alcohol: A RENETTA-C (Standard) D id you have a drink containing alcohol in the past year? N o P oints 0 I nterpretation N egative * Medications: T aking Albuterol Sulfate HFA 108 (90 Base) MCG/ACT Aerosol Solution INHALE 2 PUFFS BY MOUTH 4 TIMES A DAY NEEDED , Notes to Pharmacist: PRN, Medication List reviewed and reconciled with the patient * Allergies: P rednisone: rash - Allergy, *ALLERGIES REVIEWED-NO CHANGES: Allergy. Objective: * Vitals: W t:209.2lbs, Ht: 72 in, BP:124/82mm Hg, BMI:28.37Index, Ht-cm: 182.88 cm, Wt-k.89 kg. * Examination: P hysical Exam: GENERAL: [...] * Treatment: * Preventive Medicine: Screenings/Counseling: B [place] ACTION PLAN Above Normal BMI Follow-up D ietary management education, guidance, and counseling See treatment section of progress note for complete details of management plan. * * Electronic signature of Riley Davis MD, [id number] on 01/05/2025 at 09:09 AM EDT Sign off status: Pending Visit Status: Rufina QUARLES (Check Out) * Provider: Gerri Davis (TTC)MD Date: 01/05/2025 Generated for Printi ng/Faxing/eTransmitting on: 01/05/2025 09:09 AM EDT History and Physical Notes * HPI (History of Present Illness) Category Sub-Category Detail Notes Category Not es General Change in vision - needs labs Left elbow - some pain - Examination Category Sub-Category Detail Notes Category Not [...]
--- OUTSIDE RECORDS SUMMARY | 2025-01-05 09:10 | XMS_ITS | Clinical Summary ---
Author Organization [facility] Address [address], [address] [place] [address] Care Team Providers Care Orthopedic Nurse Practitioner Name Role Phone Unavailable Primary Care Provider Unavailabl e Social History Tobacco Use Types Packs/Day Years Used Date Smoking Tobacco: Never Assessed Sex and Gender Information Value Date Recorded Sex Assigned at Not on file Legal Sex Male 1:11 PM EST Gender Identity Not on file Sexual Orientation Not on file Plan of Treatment Not on file Insurance [employer] [id number] [id number]
--- OUTSIDE RECORDS SUMMARY | 2025-01-05 09:10 | XMS_ITS | Clinical Summary ---
Author Organization [facility] Address [address] [place] [address] Care Team Providers Care Pattern Setter Name Role Phone Colin Davis MD Primary Care Provider [phone] Allergies Active Allergy Reactions Criticality Noted Date Comments Prednisone Rash Low 03/18/2023 Medications No known medications Active Problems Problem Noted Date Diagnosed Date Primary osteoarthritis of left elbow 04/04/2023 History of arthroscopic surgery of elbow 023 Family History Medical History Relation Name Comments Cancer Father Hypertension Father Diabetes Mother Relation Name Status Comments Father Alive Mother Alive Social History Tobacco Use Types Packs/Day Years Used Date Smoking Tobacco: Never Smokeless Tobacco: Never Tobacco Cessation:Counseling Given: Not Answered Alcohol Use Standard Drinks/Week Comments Yes 0 (1 standard drink = 0.6 oz pur e alcohol) Sex and Gender Information Value Date Recorded Sex Assigned at Not on file Legal Sex Male 7:25 PM EDT Gender Identity Not on file Sexual Orientation Not on file Last Filed Vital Signs Vital Sign Reading Time Taken Comments Blood Pressure 117/84 03/27/2019 12:00 PM EST Pulse - - Temperature - - Respiratory Rate - - Oxygen Saturation - - Inhaled Oxygen Concentration - - Weight 93 kg (205 lb) 10/21/2023 2:34 PM EDT Height 182.9 cm (6') 10/21/2023 2:34 PM EDT Body Mass Index 27.8 10/21/2023 2:34 PM EDT Plan of Treatment Health Maintenance Due Date Last Done Comments Influenza Vaccine (#1) 2025 Insurance Care Teams Pattern Setter Relationship Specialty Start Date End Date Colin Davis MD PCP - General Family Medicine 10/21/23
--- OUTSIDE RECORDS SUMMARY | 2025-01-05 09:10 | XMS_ITS | Patient Health Record ---
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 Name Role Phone BenitoRiley spears Primary Care Provider Allergies Allergen (clinical drug ingredient) Drug/Non Drug Allergy documented on EMR Reaction Allergy Type Onset Date Status *ALLERGIES REVIEWED- NO CHANGES (uncoded) Unknown Allergy Active prednisone Prednisone rash Drug Allergy Activ e Results Component Value Reference Range Notes Occult Blood* Reviewed date:03/05/2024 11:23:12 AM Interpretation: Performing Lab: Notes/Report: [facility] , Occult Blood Negative Performing Lab: see note ML - [facility] LB TSH Reviewed date:03/05/2024 11:23:12 AM Interpretation: Performing Lab: Notes/Report: [facility] , Thyroid Stimulating Hormone 0.958 0.358-3.740 u IU/mL Performing Lab: see note - [facility] LB T4 Reviewed date:03/05/2024 11:23:12 AM Interpretation: Performing Lab: Notes/Report: [facility] , T4 Thyroxine 6.20 4.50-12.10 ug/dL Performing Lab: see note ML - [facility] LB PSA SCREENING Reviewed date:03/05/2024 11:23:12 AM Interpretation: Performing Lab: Notes/Report: [facility] , Prostate Specific Antigen Scrn 0.49 <=4.00 ng/mL Performing Lab: see note - [facility] LB PROF 14(COMP METB) Reviewed date:03/05/2024 11:23:12 AM Interpretation: Performing Lab: Notes/Report: [facility] , Sodium 142 136-145 mmol/L Potassium 4.8 3.5-5.1 mmol/L Chloride 105 98-107 mmol/L Carbon Dioxide 28.2 21.0-32.0 mmol/L Anion Gap 13.6 Glucose 89 74-106 mg/dL Blood Urea Nitrogen 6.0 7.0-18.0 mg/dL Creatinine 0.81 0.70-1.30 mg/dL Estimated GFR ( Verena >60 >=60 mL/min/1.73m 2 Estimated GFR (Non- Kathy >60 >=60 mL/min/1.73m 2 BUN Creatinine Ratio 7.4 Calcium 8.6 8.5-10.1 mg/dL Bilirubin Total 0.4 0.2-1.0 mg/dL Aspartate Amino Transferase 27 15-37 U/L Alanine Aminotransferase 36 16-63 U/L Alkaline Phosphatase 57 46-116 U/L Total Protein 7.1 6.4-8.2 g/dL Albumin Level 3.9 3.4-5.0 g/dL Globulin 3.2 Albumin Globulin Ratio 1.2 Performing Lab: see note ML - [facility] LIPID PROFILE Reviewed date:03/05/2024 11:23:12 AM Interpretation: Performing Lab: Notes/Report: [facility] , Triglycerides 35 <=150 mg/dL Cholesterol 179 <=200 mg/dL HDL Cholesterol 91 40-60 mg/dL > or =60 mg/dl - LOW CARDIOVASCULAR RISK <40 mg/dl - HIGH CARDIOVASCULAR RISK LDL Cholesterol Calculated 81.0 <100 mg/dl OPTIMAL >190 mg/dl VERY HIGH 160-189 mg/dl HIGH 100-129 mg/dl NEAR OR ABOVE OPTIMAL 130-159 mg/dl BORDERLINE HIGH VLDL CHOLESTEROL 7.0 Chol HDL Ratio 2.0 >11.0 HIGH RISK 4.4 - 7.1 AVERAGE RISK 7.1 - 11.0 MODERATE RISK 3.3 - 4.4 LOW RISK Performing Lab: see note ML - [facility] GLYCOHEMOGLOBIN A1C Reviewed date:03/05/2024 11:23:12 AM Interpretation: Performing Lab: Notes/Report: [facility] , Glycohemoglobin A1C 5.1 4.5-6.2 % ADA RECOMMENDED LIMIT 4.0 - 6.0 ACTION SUGGESTED ADA THERAPEUTIC TARGET < 7.0 > 7.0 Estimated Average Glucose 100 Performing Lab: see note ML - [facility] LB FREE T3 Reviewed date:03/05/2024 11:23:12 AM Interpretation: Performing Lab: Notes/Report: [facility] , Free T3 3.42 2.18-3.98 pg/mL Performing Lab: see note ML - [facility] LB CBC AUTO DIFF Reviewed date:03/05/2024 11:23:12 AM Interpretation: Performing Lab: Notes/Report: [facility] , White Blood Count 5.2 4.0-11.0 10 3/uL Red Blood Count 4.75 4.70-6.10 10 6/uL Hemoglobin 14.9 14.0-18.0 g/dL Hematocrit 44.3 42.0-54.0 % Mean Corpuscular Volume 93.3 80.0-94.0 fL Mean Corpuscular Hemoglobin 31.4 25.9-34.0 pg Mean Corpuscular HGB Conc 33.6 29.9-35.2 g/dL Red Cell Distribution Width 13.7 11.0-15.0 % Platelet Count 177 150-450 10 3/uL Mean Platelet Volume 11.1 9.5-13.5 fL Neutrophils Percent Auto 55.3 43.0-75.0 % Lymphocytes Percent Auto 30.0 20.5-60.0 % Monocytes Percent Auto 8.5 1.7-12.0 % Eosinophils Percent Auto 5.0 0.9-7.0 % Basophils Percent Auto 1.0 0.2-2.0 % Immature Granulocytes Pct Auto 0.2 0.0-0.5 % Neutrophils Absolute Auto 2.9 1.4-6.5 10 3/uL Lymphocytes Absolute Auto 1.6 1.2-3.8 10 3/uL Monocytes Absolute Auto 0.4 0.3-0.8 10 3/uL Eosinophils Absolute Auto 0.3 0.0-0.7 10 3/uL Basophils Absolute Auto 0.1 0.0-0.1 10 3/uL Immature Granulocytes Abs Auto 0.01 0.00-0.03 10 3/uL Performing Lab: see note ML - [facility] LB Reason For Referral No Information Medications Medication SIG (Take, Route, Frequency, Duration) Notes Start Date End Date Status Albuterol Sulfate HFA 108 (90 Base) MCG/ACT INHALE 2 PUFFS BY MOUTH 4 TIMES A DAY NEEDED for 25 PRN Active Social History Tobacco Use: Social History Observation Description Date Details (start date - stop date) Never Smoker NA - NA Tobacco Use/Smoking Question Answer Notes Patient is a nonsmoker Alcohol Screen (Audit-C) Question Answer Notes Did you have a drink contain ing alcohol in the past year? Yes How often did you have 6 or more drinks on one occasion in the past year? Never (0 point) How many drinks did you have on a typical day when you were drinking in the past year? 1 or 2 drinks (0 point) How often did you have a dri nk containing alcohol in the past year? Less than monthly (1 point) Points 1 Interpretation Negative AUDIT-C (Standard) Question Answer Notes Did you have a drink containing alcohol in the p ast year? 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) Active confirmed Problem 091349782 Other acquired deformities of left foot (M21.6X2) Active confirmed Problem Late effect of fracture of lower extremities (90682317) Nondisplaced fracture of first metatarsal bone, left foot, sequela (S92.315S) Active confirmed Problem Foot pain (34114119) Foot pain (M79.673) Active confirmed Problem Pain in right foot (856592926493051) Right foot pain (M79.671) Active confirmed Problem Well adult (008324707) Well adult (Z00.00) Active confirmed Problem Pain of left knee region (finding) (487798624966401) Knee pain, left (M25.562) Active confirmed Problem Upper respiratory infection (30519927) Upper respiratory infection (J06.9) Active confirmed Problem Arthralgia of the ankle and/or foot (543811761) Left ankle pain (M25.572) Active confirmed Problem Facial laceration (078905168) Facial laceration (S01.81XA) Active confirmed Problem Overweight (093059054) Over weight (E66.3) Active confirmed Problem Pain in left foot (042822133410496) Left foot pain (M79.672) Active confirmed Problem Asthma without status asthmaticus (58347165) AB (asthmatic bronchitis) (J45.909) Active confirmed Problem Derangement of knee (43176687) Internal derangement of knee, left (M23.92) Active confirmed Problem Acute medial meniscal tear, left, initial encounter (S83.242A) Active confirmed Problem Laceration of right hand without foreign body, initial encounter (S61.411A) Active confirmed Problem Paronychia of finger (972121158) Paronychia of finger (L03.019) Active confirmed Problem Varicose veins of lower extremities with inflammation (I83.10) Active confirmed Problem 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 Problem Adult health examination (062803209) Encounter for routine adult medical examination (Z00.00) Active confirmed Problem Closed compression fracture of fourth lumbar vertebra, initial encounter (S32.040A) Active confirmed Problem Thrombosis of superficial vein of lower limb (286683715) 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) Active confirmed Vital Signs Blood pressure diastolic 82 mm Hg 01/05/2025 Height 72 in 01/05/2025 Blood pressure systolic 124 mm Hg 01/05/2025 Weight 209.2 lbs 01/05/2025 BMI 28.37 kg/m2 01/05/2025 Encounters Encounter Location Date Provider Diagnosis [facility] [address] [place] [address] 03/05/2024 Riley Davis [facility] [address] [place] [address] 04/24/2024 Riley Davis [facility] [address] [place] [address] 02/24/2024 Riley [place] Well adult Z00.0 0 [facility] [address] [place] [address] 01/05/2025 Riley [place] Well adult Z00.0 0 Assessments Encounter Date Diagnosis (ICD Code) Assessment Notes Treatment Notes Treatment Clinical Notes Section Notes 02/24/2024 Well adult (ICD-10 - Z00.00) want to hold on scope - + fh colon cancer 01/05/2025 Well adult (ICD-10 - Z00.00) Plan Of Treatment Pending Test Test Name Order Date CMP (COMPLETE METABOLIC PANEL) 3 CMP (COMPLETE METABOLIC PANEL) 4 HEMOGLOBIN A1C (GLYCO) 01/05/2025 HEMOGLOBIN A1C (GLYCO) 02/19/2023 HEMOGLOBIN A1C (GLYCO) 02/24/2024 INSULIN, TOTAL 01/05/2025 LIPID PANEL (CHOL/TRIG/HDL/LDL) 01/06/20 25 LIPID PANEL (CHOL/TRIG/HDL/LDL) 02/20/20 23 LIPID PANEL (CHOL/TRIG/HDL/LDL) 02/24/20 24 CBC WITH DIFF 02/24/2024 CBC WITH DIFF 02/19/2023 PSA, PROSTATE-SPECIFIC ANTIGEN 3 XR Ankle LT (3 views) * (164) 12/08/2023 XR Ankle RT (3 views) * (161) 12/08/2023 PSA, TOTAL 02/24/2024 STOOL OCCULT BLOOD 02/19/2023 STOOL OCCULT BLOOD 02/24/2024 THYROID PANEL (T4/TSH/FREE T3) 4 THYROID PANEL (T4/TSH/FREE T3) 5 CMP (COMP MET QUIGLEY) w/eGFR CKD-EPI 2024 CBC WITH DIFF 01/05/2025 Insurance Providers Payer Name Payer Address Payer Phone Subscriber Number Group Number Insured Name Patient Relationship to Insured Coverage Start Date Coverage End Date [facility] [address] [address] [place] [address] [phone] [id number] Marky Lewis Self - patient is the insured Medical (General) History Medical History History ICD Code Nondisplaced fracture of first metatarsa l bone, left foot, sequela S92.315S Acute medial meniscal tear, left, initia l encounter S83.242A Closed compression fracture of fourth kayla mbar vertebra, initial encounter S32.040A Embolism and thrombosis of superficial v eins of unspecified lower extremity I82.819 Over weight E66.3 Golfer's elbow M77.00 Foot pain M79.673 Laceration of right hand without foreign body, initial encounter S61.411A Internal derangement of knee, left M23.9 2 Knee pain, left M25.562 AB (asthmatic bronchitis) J45.909 Varicose veins of lower extremities with inflammation I83.10 Upper respiratory infection J06.9 Facial laceration S01.81XA Embolism and thrombosis of superficial v eins of unspecified lower extremity I82.819 Well adult Z00.00 Encounter for routine adult medical exam ination Z00.00 Paronychia of finger L03.019 Surgical History Surgery Date(Month/Year) Rt ankle fracture repair Scope of left knee Left Elbow Scope 04/2024 VX Endovenous Ablation Bilat Repair of tendon rt middle finger Pin left 5th digit Hospitalization History Reason Date(Month/Year) Just for surgeries
--- OUTSIDE RECORDS SUMMARY | 2025-01-05 09:10 | XMS_ITS | Clinical Summary ---
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 06/04/2022 Active Active Problems Problem Noted Date Diagnosed Date Primary osteoarthritis, left elbow 04/03/2022 Immunizations Immunization Administration Dates Next Due Tdap 11/23/2019 Unspecified Sars-Cov-2 Vaccination 09/16/2020, Family History Medical History Relation Name Comments Colon cancer Father Hypertension Father Diabetes Mother Relation Name Status Comments Father Alive Mother Alive Social History Tobacco Use Types Packs/Day Years Used Date Smoking Tobacco: Never Passive Smoke Exposure: Never Smokeless Tobacco: Never Alcohol Use Standard Drinks/Week Comments Yes 0 (1 standard drink = 0.6 oz pur e alcohol) WEEKLY PHQ-2 Answer Date Recorded Patient Health Questionnaire-2 Score 0 04/03/2022 [facility] [place] [facility] - Occupational Stress Questionnaire Answer Date Recorded Do you feel stress - tense, restless, nervous, or anxious, or unable to sleep at night because your mind is troubled all the time - these days? Not at all 04/03/2022 [facility] Answer Date Rec orded Fear of Current or Ex-Partner Not on file Emotionally Abused Not on file 06/24/2023 Physically Abused Not on file 06/24/2023 Sexually Abused Not on file 06/24/2023 Physically or Sexually Abused Not on file Sex and Gender Information Value Date Recorded Sex Assigned at Not on file Legal Sex Male 10:48 AM EST Gender Identity Not on file Sexual Orientation Not on file Last Filed Vital Signs Vital Sign Reading Time Taken Comments Blood Pressure 112/81 03/29/2023 10:00 AM EST Pulse 76 03/29/2023 10:00 AM EST Temperature 36 C (96.8 F) 03/29/2023 10:00 AM EST Respiratory Rate 16 05/14/2023 9:10 AM EST Oxygen Saturation 93% 03/29/2023 10:00 AM EST Inhaled Oxygen Concentration - - Weight 95.7 kg (211 lb) 05/14/2023 9:10 AM EST Height 182.9 cm (6') 05/14/2023 9:10 AM EST Body Mass Index 28.62 05/14/2023 9:10 AM EST Plan of Treatment Health Maintenance Due Date Last Done Comments Depression Screening 1992 Varicella Vaccines (1 of 2 - 13+ 2-dose series) 1993 Hepatitis B Vaccines (1 of 3 - 19+ 3-dose series) 12/14/1999 COVID-19 Vaccine (2024- season) 2025 09/16/2020, 09/16/2020, 08/26/2020, Additional history exists Influenza Vaccine (#1) 2025 Adult Tetanus 11/22/2029 11/23/2019, 11/23/2019 Zoster Vaccines (1 of 2) 2030 HIB Vaccines Aged Out No longer eligi ble based on patient's age to complete this topic HPV Vaccines Aged Out No longer eligi ble based on patient's age to complete this topic IPV Vaccines Aged Out No longer eligi ble based on patient's age to complete this topic Meningococcal B Vaccine Aged Out No l onger eligible based on patient's age to complete this topic Meningococcal Vaccine Aged Out No kaia aisha eligible based on patient's age to complete this topic Pneumococcal Vaccine: Pediatrics (0 to 5 Years) and At-Risk Patients (6 to 64 Years) Aged Out No longer eligible based on patient's age to complete this topic Rotavirus Vaccines Aged Out No longer eligible based on patient's age to complete this topic Insurance [facility] Care Teams Net Making Supervisor Relationship Specialty Start Date End Date Colin Davis MD [address] [place] [address] PCP - General 04/03/22
--- OUTSIDE RECORDS SUMMARY | 2025-01-05 09:33 | XMS_ITS | CCD ---
Author Organization [facility] CliniSyil Care Team Providers Care Bobj Developer Name Role Phone DR DIANE DAVIS Admitting [...] Unavailable MD Diane Davis Primary Care Provider [phone] NATAN Stratton Attending Provider [phone] BAYLEE LAWS Attending Unavailable MIKE PERES Referring [...] sources) predniSONE; Translations: [PREDNISONE] Drug Allergy 03-18-2023 [facility] Repository (1 source) predniSONE Drug Allergy 10-20-2023 [facility] Repository Medications Current Medications Medication Drug Class(es) [...] te Episodic/Chronic Other aftercare (1 source) Other care home (current) drug therapy; Translations: [[facility] CURRENT DRUG THERAPY] Onset: 09-30-2021 Episodic Other [...] 3V*on 024 XR foot RT min 3V* [facility] [address] XRay Report Signed Patient: Lucas Lewis MR#: [id number] : 1980 Acct:[id number] Age/Sex: 42 / M ADM Date: 10/20/23 Loc: XDUCLY Room: Type: [facility] Attending Dr: Ellen Stratton APRN Copies to: [...] Her Jr., D.OSasha10/20/2023 4:45 PM Dictation Location: [facility]--15 Transcribed By: [facility] 10/20/231644 Dictated By: Keshav Her Jr, DO 10/20/231643 Signed By: 10/20/231644 [facility] Follow-Upon 05-14-2023 Follow-Up [id number] Lucas Lewis 1980 M Date Provider Department Center 05/14/2023 MIKE ANNA [facility] Family History Problem Relation Age of Onset Diabetes Mother Hypertension Father Colon cancer Father Family Status - Relation Status Age at Mother Alive Father Alive Level of Service:42777 ID POSTOP FOLLOW UP VISIT RELATED TO ORIGINAL PX (GC) Reason for Visit and Comments: Follow-up [196910] [facility] Follow-Upon 04-13-2023 Follow-Up [id number] Lucas Lewis 1980 M Date Provider Department Center 04/13/2023 MIKE ANNA [facility] Family History Problem Relation Age of Onset Diabetes Mother Hypertension Father Colon cancer Father Family Status - Relation Status Age at Mother Alive Father Alive Level of Service:47119 ID POSTOP FOLLOW UP VISIT RELATED TO ORIGINAL PX [facility] HPon 03-29-2023 History Of Present Illness [...] lumbar vertebra, initial encounter for closed fracture ([facility]). Surgical History He has a past surgical [...] elbow arthroscopy, extensive debridement Normal [facility] NURSNOTEon 03-29-2023 NURSNOTE Discharge instructions reviewed with patient father at bedside. All questions answered at this time. 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] Procedures Left elbow arthroscopy, debridement of radiocapitellar joint, debridement of posterior compartment, excision of olecranon and distal humerus (anterior and posterior) osteophytes ELBOW ARTHROSCOPY, EXTENSIVE DEBRIDEMENT [id number] - ID ARTHROSCOPY ELBOW SURGICAL DEBRIDEMENT EXTENSIVE Surgeons * Mike Peres - [employer] Planner: Georges Alfonso MD - resident Procedure Summary Anesthesia: General ASA: I Estimated Blood Loss: Minimal Total IV Fluids: per anesthesia record Drains: * None in log * Staff: Records And Information Manager: Shila Felix RN Scrub Person: Susan Díaz Orientpriscilla Records And Information Manager: HEYDI RAMOS Indications: Lucas Lewis is an [...] to the left upper extremity. Be given [place] for pain control. We will start physical therapy in 4 days for range of motion and strengthening. I will see him back in clinic for suture removal and 7 to 10 days. Findings: radiocapitellar arthritis, osteophyte of the anterior humerus, olecranon, olecranon fossa Complications: None; patient tolerated the procedure well. Disposition: PACU - hemodynamically stable. Condition: stable Mike Peres Normal [facility] POCT GLUCOSE METER UNSOLICIT ED RESULTSon 03-29-2023 Glucose [Mass/Vol] 91 mg/dL Normal 70-105 [facility] Comment on above: Order Comment: Cory monterroso Testing in the ED is performed under the ED CLIA certificate #[id number]. Result Comment: ngro denver Performed By: #### L [id number] ####[facility] ([facility]AKER)[address] [place] [address] Orders Onlyon 03-22-2023 Orders Only [id number] Lucas Lewis 1980 M Date Provider Department Center 03/22/2023 MIKE ANNA [facility] Family History Problem Relation Age of Onset Diabetes Mother Hypertension Father Colon cancer Father Family Status - Relation Status Age at Mother Alive Father Alive Normal [facility] Follow-Upon 12-08-2022 Follow-Up [id number] Lucas Lewis 1980 M Date Provider Department Center 12/08/2022 MIKE ANNA [facility] Family History Problem Relation Age of Onset Diabetes Mother Hypertension Father Colon cancer Father Family Status - Relation Status Age at Mother Alive Father Alive Level of Service:65118 ID OFFICE/OUTPATIENT ESTABLISHED MOD MDM 30-39 MIN (57,GC) Reason for Visit and Comments: Pre-op Visit [558] Normal [facility] XR ribs LT min 3V w CXR1V*on 09-13-2022 XR ribs LT min 3V w CXR1V* [facility] [employer] Other XR ribs LT min 3V w CXR1V* [facility] [employer] Other XR ribs LT min 3V w CXR1V* [address] [place] [address] [employer] Other XR ribs LT min 3V w CXR1V* [place] [address] [employer] Other XR ribs LT min 3V w CXR1V* XRay Report [employer] Other XR ribs LT min 3V w CXR1V* Signed [employer] Other XR ribs LT min 3V w CXR1V* Patient: Lucas Lewis MR#: [id number] [employer] Other XR ribs LT min 3V w CXR1V* : 1980 Acct:[id number] [employer] Other XR ribs LT min 3V w CXR1V* Age/Sex: 41 / M ADM Date: 09/13/22 [employer] Other XR ribs LT min 3V w CXR1V* Loc: XDUCLY Room: Type: REG CLI [employer] Other XR ribs LT min 3V w CXR1V* Attending Dr: Baylee MONZON [employer] Other XR ribs LT min 3V w CXR1V* Copies to: NA Figueredo [employer] Other XR ribs LT min 3V w CXR1V* Ordering Provider: NA Figueredo [employer] Other XR ribs LT min 3V w CXR1V* Date of Service: 09/13/22 [employer] Other XR ribs LT min 3V w CXR1V* XR/XR ribs LT min 3V w CXR1V*: LEFT RIB PAIN [employer] Other XR ribs LT min 3V w CXR1V* XR ribs LT min 3V w CXR1V* 09/13/2022 2:14 PM [employer] Other XR ribs LT min 3V w CXR1V* SIGNS AND SYMPTOMS: Fall onto left side, pain over the anterior and lateral left lower ribs [employer] Other XR ribs LT min 3V w CXR1V* PROTOCOL: Frontal radiograph of the chest with oblique radiographs of the left ribs [employer] Other XR ribs LT min 3V w CXR1V* COMPARISON: None [employer] Other XR ribs LT min 3V w CXR1V* FINDINGS: [employer] Other XR ribs LT min 3V w CXR1V* The trachea is midline. The heart and mediastinal structures are within normal limits. The lung [employer] Other XR ribs LT min 3V w CXR1V* parenchyma is clear. Minimally displaced fractures are noted along the anterior aspects of the left [employer] Other XR ribs LT min 3V w CXR1V* ninth through 11th ribs near the costochondral junction. [employer] Other XR ribs LT min 3V w CXR1V* XR/XR ribs LT min 3V w CXR1V* [employer] Other XR ribs LT min 3V w CXR1V* IMPRESSION: [employer] Other XR ribs LT min 3V w CXR1V* Minimally displaced fractures are noted along the anterior aspects of the left ninth through 11th [employer] Other XR ribs LT min 3V w CXR1V* ribs near the costochondral junction. [employer] Other XR ribs LT min 3V w CXR1V* Impression dictated by: Zachariah Krause M.D.09/13/2022 2:22 PM [employer] Other XR ribs LT min 3V w CXR1V* Dictation Location: [place] [address] [employer] Other XR ribs LT min 3V w CXR1V* Transcribed By: GRISELDA 09/13/22 [facility] [employer] Other XR ribs LT min 3V w CXR1V* Dictated By: Zachariah Krause II, MD 09/13/22 [facility] [employer] Other XR ribs LT min 3V w CXR1V* Signed By: [employer] Other XR ribs LT min 3V w CXR1V* 09/13/22 [facility] [employer] Other Office Visiton 07-21-2022 Follow-up visit [id number] Lucas Lewis 1980 M Date Provider Department Center 07/21/2022 Alex-MIKE PERES [facility] Family History Problem Relation Age of Onset Diabetes Mother Hypertension Father Colon cancer Father Family Status - Relation Status Age at Mother Alive Father Alive Level of Service:57759 ID OFFICE/OUTPATIENT ESTABLISHED MOD MDM 30-39 MIN (25,GC) Reason for Visit and Comments: Pain [136] [facility] 36on 06-22-2022 36 Pt called stated he has not heard anything yet from Dr. Peres and wants to know what to do [facility] 36on 06-01-2022 36 Pt notified [facility] on 05-29-2022 36 Pt called wanting to know what his next step of care would be? [facility] Telephoneon 05-29-2022 Telephone [id number] Lucas Lewis 1980 M Date Provider Department Center 05/29/2022 [facility] Family History Problem Relation Age of Onset Diabetes Mother Hypertension Father Colon cancer Father Family Status - Relation Status Age at Mother Alive Father Alive Reason for Visit and Comments: plan of care [Other] [facility] Follow-Upon 05-20-2022 Follow-Up [id number] Lucas Lewis 1980 M Date Provider Department Center 05/20/2022 Tanna-ALEX LEW [facility] Family History Problem Relation Age of Onset Diabetes Mother Hypertension Father Colon cancer Father Family Status - Relation Status Age at Mother Alive Father Alive Level of Service:02910 ID OFFICE/OUTPATIENT NEW LOW MDM 30-44 MINUTES Reason for Visit and Comments: Follow-up [833946] [facility] MRI ELBOW LT WO CONon 2021 [...] EILEEN MELCHOR Date: 2022-03-25 22:09 Normal [facility] XR FOREIGN BODY EYEon 2021 XR FOREIGN BODY EYE EXAMINATION: XR FOREIGN BODY EYE HISTORY: Foreign body in eye COMPARISON: No relevant comparison available. FINDINGS: ORBITS: Negative for a metallic foreign body. OTHER: Negative. IMPRESSION: No metallic foreign body in the orbits Electronically authenticated by: MACARIO COE Date: 2022-03-20 08:50 Normal [facility] CBC AUTO DIFFon 12-27-2021 BASO # 0.0 103/ul Normal 0.0-0.1 [facility] Comment on above: Performed By: #### C BC #### [facility] [address] [place] [address] Dr. Little Lindsay Basophils/100 WBC (Bld) 0.6 % Normal 0.2-2.0 [facility] Comment on above: Performed By: #### C BC #### [facility] [address] [place] [address] Dr. Little Lindsay EO # 0.0 103/ul Normal 0.0-0.7 [facility] Comment on above: Performed By: #### C BC #### [facility] [address] [place] [address] Dr. Little Lindsay Eosinophils/100 WBC (Bld) 0.5 % Critically low 0.9-7.0 [facility] Comment on above: Performed By: #### C BC #### [facility] [address] [place] [address] Dr. Little Lindsay Erythrocyte distribution width (RBC) [Ratio] 14.2 % Normal 11.0-15.0 [facility] Comment on above: Performed By: #### C BC #### [facility] [address] [place] [address] Dr. Little Lindsay Hematocrit (Bld) [Volume fraction] 44.6 % Normal 42.0-54.0 [facility] Comment on above: Performed By: #### C BC #### [facility] [address] [place] [address] Dr. Little Lindsay Hemoglobin (Bld) [Mass/Vol] 14.8 g/dL Normal 14.0-18.0 [facility] Comment on above: Performed By: #### C BC #### [facility] [address] [place] [address] Dr. Little Lindsay IG # 0.03 10e3/ul Normal 0.00-0.03 [facility] Comment on above: Performed By: #### C BC #### [facility] [address] [place] [address] Dr. Little Lindsay IG % 0.5 % Normal 0.0-0.5 [facility] Comment on above: Performed By: #### C BC #### [facility] [address] [place] [address] Dr. Little Lindsay LYMPH # 1.6 103/ul Normal 1.2-3.8 [facility] Comment on above: Performed By: #### C BC #### [facility] [address] [place] [address] Dr. Little Lindsay Lymphocytes/100 WBC (Bld) 24.6 % Normal 20.5-60.0 [facility] Comment on above: Performed By: #### C BC #### [facility] [address] [place] [address] Dr. Little Lindasy MANUAL DIFF REQ NO Normal [facility] Comment on above: Performed By: #### C BC #### [facility] [address] [place] [address] Dr. Little Lindsay MCH (RBC) [Entitic mass] 30.8 pg Normal 25.9-34.0 [facility] Comment on above: Performed By: #### C BC #### [facility] [address] [place] [address] Dr. Little Lindsay MCHC (RBC) [Mass/Vol] 33.2 g/dL Normal 29.9-35.2 [facility] Comment on above: Performed By: #### C BC #### [facility] [address] [place] [address] Dr. Little Lindsay MCV (RBC) [Entitic vol] 92.9 fL Normal 80.0-94.0 [facility] Comment on above: Performed By: #### C BC #### [facility] [address] [place] [address] Dr. Little Lindsay MONO # 0.5 103/ul Normal 0.3-0.8 [facility] Comment on above: Performed By: #### C BC #### [facility] [address] [place] [address] Dr. Little Lindsay Monocytes/100 WBC (Bld) 6.8 % Normal 1.7-12.0 [facility] Comment on above: Performed By: #### C BC #### [facility] [address] [place] [address] Dr. Little Lindsay NEUT # 4.4 103/ul Normal 1.4-6.5 [facility] Comment on above: Performed By: #### C BC #### [facility] [address] [place] [address] Dr. Little Lindsay Neutrophils/100 WBC (Bld) 67.0 % Normal 43.0-75.0 [facility] Comment on above: Performed By: #### C BC #### [facility] [address] [place] [address] Dr. Little Lindsay Platelet mean volume (Bld) [Entitic vol] 10.8 fL Normal 9.5-13.5 [facility] Comment on above: Performed By: #### C BC #### [facility] [address] [place] [address] Dr. Little Lindsay PLT 187 103/ul Normal 150-450 [facility] Comment on above: Performed By: #### C BC #### [facility] [address] [place] [address] Dr. Little Lindsay RBC 4.80 106/ul Normal 4.70-6.10 [facility] Comment on above: Performed By: #### C BC #### [facility] [address] [place] [address] Dr. Little Lindsay WBC 6.6 103/ul Normal 4.0-11.0 [facility] Comment on above: Performed By: #### C BC #### [facility] [address] [place] [address] Dr. Little Lindsay GLYCOHEMOGLOBIN A1Con 2021 ADA RECOMMENDATION SEE BELOW Normal [facility] Comment on above: Result Comment: ADA RECOMMENDED LIMIT 4.0 - 6.0 ADA THERAPEUTIC TARGET < 7.0 ACTION SUGGESTED > 7.0 Performed By: #### A 1C #### [facility] [address] [place] [address] Dr. Little Lindsay Glucose [Mass/Vol] 111 mg/dL Normal [facility] Comment on above: Performed By: #### A 1C #### [facility] [address] [place] [address] Dr. Little Lindsay HbA1c (Bld) [Mass fraction] 5.5 % Normal 4.5-6.2 [facility] Comment on above: Performed By: #### A 1C #### [facility] [address] [place] [address] Dr. Little Lindsay LIPID PROFILEon 12-27-2021 CHOL-HDL RATIO NORM SEE BELOW Normal [facility] Comment on above: Result Comment: 3.3 - 4.4 LOW RISK 4.4 - 7.1 AVERAGE RISK 7.1 - 11.0 MODERATE RISK >11.0 HIGH RISK Performed By: #### L IPID, CMP, URIC #### [facility] [address] [address] [address] Little Lindsay Cholesterol [Mass/Vol] 195 mg/dL Normal <=200 [facility] Comment on above: Performed By: #### L IPID, CMP, URIC #### [facility] [address] [address] [address] Little Lindsay Cholesterol in HDL [Mass/Vol] 106 mg/dL Critically high 40-60 [facility] Comment on above: Performed By: #### L IPID, CMP, URIC #### [facility] [address] [address] [address] Little Lindsay Cholesterol in LDL [Mass/Vol] 83.2 mg/dL Normal [facility] Comment on above: Performed By: #### L IPID, CMP, URIC #### [facility] [address] [address] [address] Little Lindsay Cholesterol.total/Ch olesterol in HDL [Mass ratio] 1.8 {ratio} Normal [facility] Comment on above: Performed By: #### L IPID, CMP, URIC #### [facility] [address] [address] [address] Little Lindsay HDL NORMAL > or = 60 mg/dl - LOW CARDIOVASCULAR RISK <40 mg/dl - HIGH CARDIOVASCULAR RISK Normal [facility] Comment on above: Performed By: #### L IPID, CMP, URIC #### [facility] [address] [address] [address] Little Lindsay LDL CALC NORMAL SEE BELOW Normal [facility] Comment on above: Result Comment: <100 mg/dl OPTIMAL 100 - 129 mg/dl NEAR OR ABOVE OPTIMAL 130 - 159 mg/dl BORDERLINE HIGH 160 - 189 mg/dl HIGH >190 mg/dl VERY HIGH Performed By: #### L IPID, CMP, URIC #### [facility] [address] [address] [address] Little Lindsay Triglyceride [Mass/Vol] 29 mg/dL Normal <=150 [facility] Comment on above: Performed By: #### L IPID, CMP, URIC #### [facility] [address] [address] [address] Little Lindsay VLDL CALC 5.8 mg/dL Normal [facility] Comment on above: Performed By: #### L IPID, CMP, URIC #### [facility] [address] [address] [address] Little Lindsay PROF 14(COMP METB)on 022 Albumin [Mass/Vol] 4.3 g/dL Normal 3.4-5.[address] [facility] Comment on above: Performed By: #### L IPID, CMP, URIC #### [facility] [address] [address] [address] Little Lindsay Albumin/Globulin [Mass ratio] 1.3 {ratio} Normal [facility] Comment on above: Performed By: #### L IPID, CMP, URIC #### [facility] [address] [address] [address] Little Lindsay ALP [Catalytic activity/Vol] 67 U/L Normal 46-116 [facility] Comment on above: Performed By: #### L IPID, CMP, URIC #### [facility] [address] [address] [address] Little Lindsay ALT [Catalytic activity/Vol] 42 U/L Normal 16-63 [facility] Comment on above: Performed By: #### L IPID, CMP, URIC #### [facility] [address] [address] [address] Little Lindsay Anion gap [Moles/Vol] 10.5 mmol/L Normal [facility] Comment on above: Performed By: #### L IPID, CMP, URIC #### [facility] [address] [address] [address] Little Lindsay AST [Catalytic activity/Vol] 22 U/L Normal 15-37 [facility] Comment on above: Performed By: #### L IPID, CMP, URIC #### [facility] [address] [address] [address] Little Lindsay Bilirubin [Mass/Vol] 0.4 mg/dL Normal 0.2-1.0 [facility] Comment on above: Performed By: #### L IPID, CMP, URIC #### [facility] [address] [address] [address] Little Lindsay Calcium [Mass/Vol] 9.1 mg/dL Normal 8.5-10.[address] [facility] Comment on above: Performed By: #### L IPID, CMP, URIC #### [facility] [address] [place] [address] Dr. Little Lindsay Chloride [Moles/Vol] 102 mmol/L Normal 98-107 [facility] Comment on above: Performed By: #### L IPID, CMP, URIC #### [facility] [address] [place] [address] Dr. Little Lindsay CO2 [Moles/Vol] 28.0 mmol/L Normal 21.0-32.0 [facility] Comment on above: Performed By: #### L IPID, CMP, URIC #### [facility] [address] [place] [address] Dr. Little Lindsay Creatinine [Mass/Vol] 0.82 mg/dL Normal 0.70-1.30 [facility] Comment on above: Performed By: #### L IPID, CMP, URIC #### [facility] [address] [place] [address] Dr. Little Lindsay EGFR-AF ARGENTINE 125 mL/min/1.73m2 Normal >=60 [facility] Comment on above: Performed By: #### L IPID, CMP, URIC #### [facility] [address] [place] [address] Dr. Little Lindsay EGFR-NON AF ARGENTINE 104 mL/min/1.73m2 Normal >=60 [facility] Comment on above: Performed By: #### L IPID, CMP, URIC #### [facility] [address] [place] [address] Dr. Little Lindsay Globulin (S) [Mass/Vol] 3.2 g/dL Normal [facility] Comment on above: Performed By: #### L IPID, CMP, URIC #### [facility] [address] [place] [address] Dr. Little Lindsay Glucose [Mass/Vol] 107 mg/dL Critically high 74-106 [facility] Comment on above: Performed By: #### L IPID, CMP, URIC #### [facility] [address] [place] [address] Dr. Ltitle Lindsay Potassium [Moles/Vol] 4.5 mmol/L Normal 3.5-5.1 [facility] Comment on above: Performed By: #### L IPID, CMP, URIC #### [facility] [address] [address] [address] Little Lindsay Protein [Mass/Vol] 7.5 g/dL Normal 6.4-8.2 [facility] Comment on above: Performed By: #### L IPID, CMP, URIC #### [facility] [address] [address] [address] Little Lindsay Sodium [Moles/Vol] 136 mmol/L Normal 136-145 [facility] Comment on above: Performed By: #### L IPID, CMP, URIC #### [facility] [address] [address] [address] Little Lindsay Urea nitrogen [Mass/Vol] 15.0 mg/dL Normal 7.0-18.0 [facility] Comment on above: Performed By: #### L IPID, CMP, URIC #### [facility] [address] [address] [address] Little Lindsay Urea nitrogen/Creatinine [Mass ratio] 18.3 mg/mg Normal [facility] Comment on above: Performed By: #### L IPID, CMP, URIC #### [facility] [address] [place] [address] Dr. Little Lindsay URIC ACID SERUMon 12-27-2021 Urate [Mass/Vol] 3.5 mg/dL Normal 3.5-7.2 [facility] Comment on above: Performed By: #### L IPID, CMP, URIC #### [facility] [address] [address] [address] Little Lindsay Covid-19 PCR ([facility])on SARS-CoV-2 (COVID-19) RNA EBEN+probe Ql (Unsp spec) Not detected Normal NOT DETECTED [facility] Comment on above: Result Comment: This test is not yet approved or cleared by the [place] FDA. When there are no FDA-approved or cleared tests available, and other criteria are met, FDA can make tests available under an emergency access mechanism called an Emergency Use Authorization (EUA). The EUA for this test is supported by the [place] of Health and Human Service's (HHS's) declaration [...] consistent with SARS-CoV-2. Performed By: #### [facility] #### [facility] [address] [address] [address] Little Lindsay Vital Signs Date Time Vital Sign Value Performing Clinician Facility 10-20-2023 16:17-0400 Body height 182.88 cm MD Diane Davis Work Phone: [facility] 10-20-2023 16:17-0400 Body mass index (BMI) [Ratio] 27.8 kg/m2 MD Diane Davis Work Phone: [facility] 10-20-2023 16:17-0400 Body temperature 98.6 [degF] MD Diane Davis Work Phone: [facility] 10-20-2023 16:17-0400 Body weight 92.98 kg MD Diane Davis Work Phone: [facility] 10-20-2023 16:17-0400 Diastolic blood pressure 80 mm[Hg] MD Diane Davis Work Phone: [facility] 10-20-2023 16:17-0400 Heart rate 70 /min MD Diane Davis Work Phone: [facility] 10-20-2023 16:17-0400 Respiratory rate 16 /min MD Diane Davis Work Phone: [facility] 10-20-2023 16:17-0400 SaO2% (BldA) [Mass fraction] 97 % MD Diane Davis Work Phone: [facility] 10-20-2023 16:17-0400 Systolic blood pressure 127 mm[Hg] MD Diane Davis Work Phone: [facility] 09-13-2022 14:35-0400 Body height 182.88 cm Baylee Adelita Other [facility] Other 09-13-2022 14:35-0400 Body mass index (BMI) [Ratio] 29.35 kg/m2 Baylee Adelita Other [facility] Other 09-13-2022 14:35-0400 Body temperature 97.8 [degF] Baylee Adelita Other [facility] Other 09-13-2022 14:35-0400 Body weight 98.16 kg Baylee Adelita Other [facility] Other 09-13-2022 14:35-0400 Diastolic blood pressure 83 mm[Hg] Baylee Adelita Other [facility] Other 09-13-2022 14:35-0400 Respiratory rate 18 /min Baylee Adelita Other [facility] Other 09-13-2022 14:35-0400 SaO2% (BldA) [Mass fraction] 97 % Baylee Adelita Other [facility] Other 09-13-2022 14:35-6840 Systolic blood pressure 128 mm[Hg] Baylee Ureña Other [facility] Other Encounters Encounter Date Encounter Type Care Provider Facility Start: 10-21-2023 End: 10-21-2023 ambulatory DENIS Joce JJEN Not Available Start: 10-20-2023 End: 10-20-2023 ambulatory MD Diane Davis Work Phone: [facility] Work Phone: Start: 10-20-2023 End: 10-20-2023 Patient encounter procedure MD Diane Davis Work Phone: [facility] Work Phone: Start: 05-14-2023 End: 05-14-2023 ambulatory MIKE Monterroso [facility] Start: 04-23-2023 End: 04-23-2023 ambulatory REJI GAIL Not Available Start: 04-19-2023 End: 04-19-2023 ambulatory YUMIKO GAYKATIE Not Available Start: 04-16-2023 End: 04-16-2023 ambulatory HUMPHREY CASTELLON Not Available Start: 04-13-2023 End: 04-13-2023 ambulatory MIKE Monterroso [facility] Start: 04-08-2023 End: 04-08-2023 ambulatory HUMPHREY CASTELLON Not Available Start: 04-02-2023 End: 04-02-2023 ambulatory BAYLEE LAWS Not Available Start: 03-29-2023 End: 03-29-2023 ambulatory MIKE Monterroso [facility] Start: 12-08-2022 End: 12-08-2022 ambulatory MIKE Monterroso [facility] Start: 09-13-2022 Office outpatient vi sit 15 minutes Baylee Ureña [facility] Start: 09-13-2022 End: 09-13-2022 ambulatory Baylee Ureña Other [facility] Other Start: 09-13-2022 End: 09-13-2022 Patient encounter 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 Baylee Ureña Work Phone: [facility] Work Phone: Start: 07-21-2022 End: 07-21-2022 ambulatory MIKE PERES [facility] Start: 05-20-2022 ambulatory ALEX LEW [facility] Start: 03-20-2022 End: 03-21-[address] DIANE DAVIS Facility:[facility] Start: 02-10-2022 End: 04-15-[address] DIANE DAVIS Facility:[facility] Start: 01-26-2022 End: 01-27-2022 ambulatory BAYLEE MOORE Facility:[facility] Start: 12-29-2021 Encounter for genera l adult medical examination without abnormal findings DR DIANE DAVIS [facility] Start: 12-27-2021 End: 12-28-[address] [...] Work Phone: Start: 09-13-2022 Plain chest X-ray SCRUBBER MACHINE TENDER-Rufina Ureña Work Phone: Start: 05-20-2022 Follow-up visit Follow-up ALEX LEW Start: 12-27-[address] COOPER DAVIS Comment on above: Performed By: #### [facility] #### [facility] [address] [place] [address] Dr. Little Lindsay Plan of Treatment Date Care Activity Detail Author Start: 10-20-[address] [facility] Work Phone: Patient referral [facility] Work Phone: XR Foot - right GE 3 Views F [facility] Payers Date Payer Category Payer Self-pay [id number] 1980 Unknown [id number] 2.16.84 [id number] 1980 Unknown [id number] 2.16.84 [id number] 1980 Unknown [id number] 2.16.84 0.1.899090.3.579.2.593 1980 Unknown [id number] 2.16.84 0.1.674439.3.579.2.593 1980 Unknown [id number] 2.16.84 0.1.528503.3.579.2.593 1980 Unknown [id number] 2.16.84 0.1.890870.3.579.2.593 1980 Unknown [id number] 2.16.84 0.1.543682.3.579.2.1258 1980 Unknown [id number] 2.16.840 .1.001706.3.579.2.1258 1980 Unknown [id number] 2.16.840 .1.745984.3.579.2.1258 1980 Unknown [id number] .16.840 .1.929874.3.579.2.1258 1980 Unknown [id number] .16.840 .1.276673.3.579.2.1258 1980 Unknown [id number] 2.16.840 .1.961023.3.579.2.1258 1980 Unknown [id number] 2.16.840 .1.035491.3.579.2.1259 1959 Private Health Insurance [id number] Unknown [id number] 2.16.8 [id number] Social History Date Type Detail Facility Unknown if ever smoked [facility] Other Sex Assigned At Sex Assigned At Bir th [facility] Other Start: 1980 Sex Assigned At Male F [facility] Start: 06-12-2017 Tobacco smoking status NHIS Never smoked tobacco (finding) [facility] Clinical Notes 01-26-2022 to 05-14-2023 Note Date [...] bit better, 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 Mike Peres MD [facility] 04-13-2023 Note Post-Operative Follo w-up: Patient here [...] the patient. Mike Peres MD [facility] 03-29-2023 Note Patient: Lucas Lewis Procedure Summary Date: 03/29/23 Room / Location: [facility] OR [address] [place] [address] [facility] OR Anesthesia Start: 728 Anesthesia Stop: [...] protocol. No notable events documented. [facility] 03-29-2023 Note Patient: Lucas Lewis Procedure Summary Date: 03/29/23 Room / Location: [address] OR Anesthesia Start: 728 Anesthesia Stop: Procedure: ELBOW ARTHROSCOPY, EXTENSIVE DEBRIDEMENT (Left: Elbow) Diagnosis: Primary osteoarthritis, left elbow (Primary osteoarthritis, left elbow [M19.022]) Surgeons: Mike Peres MD Responsible Provider: Jane Cassidy MD Anesthesia Type: general, regional ASA Status: 1 Anesthesia Post Transport [facility] Patient Monitor: direct observation Transport: uneventful Patient condition is: stable [facility] 03-29-2023 Note Airway Date/Time: 03/29/2023 7:35 AM Urgency: elective General Information and Staff Patient location during procedure: OR Anesthesiologist: Jane Cassidy MD Resident/[employer]/CAA: TALISHA Estrada Performed: resident/[employer]/CAA Indications and Patient Condition Indications for airway [...] of other approaches attempted: 0 [facility] 03-29-2023 Note Peripheral Block Patient location during procedure: pre-op Start time: 03/29/2023 6:58 AM End time: 03/29/2023 7:14 AM Reason for block: at surgeon's request and post-op pain management Staffing Performed: resident/[employer]/CAA Resident/[employer]: Sandoval Hoyt MD Preanesthetic Checklist Completed: patient [...] no Slow fractionated injection: yes [facility] 03-29-2023 Note Patient: Lucas Lewis Procedure Information Date/Time: 03/29/23729 Procedure: ELBOW ARTHROSCOPY, EXTENSIVE DEBRIDEMENT (Left: Elbow) Location: [facility] OR [address] [place] [address] OR Surgeons: Mike Peres MD Past Medical [...] with CAA. Additional Equipment Requests [facility] 03-18-2023 Note Medications to take AM day of procedure with sips water only: inhaler Medication Hold instructions: IF YOU ARE GOING HOME AFTER YOUR SURGERY OR PROCEDURE, FOR YOUR SAFETY, YOUR SURGERY WILL BE CANCELLED IF BOTH OF THE FOLLOWING ARE NOT AVAILABLE: An adult starting gate driver over the age of 18, that [...] lenses. Do not wear perfume, make-up, nail kyrgyz, or lotions on the day of your [...] need to make any changes, please call [phone]. Notify your surgeon if you develop any illness such as a cold, cough, fever, sore throat or vomiting between now and your surgery. Thank you for entrusting us with your care. [facility] Surgical Services Team [facility] 12-08-2022 Note Subjective: Chief Complaint: left elbow [...] pain. 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 Social History Occupational History Not [...] from me. Mike Peres MD [facility] 09-13-2022 Evaluation note Encounter Date Diagnosis Assessment [...] no improvement in 5 to 7 days [facility] Other 03-21-2023 NoteSubjective: Chief Complaint: left elbow [...] pain. 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 Previous Treatments: PT Social History [...] documentation from me. Mike [facility]res [facility]2023 NoteOrthopedic Surgery Subjective HPI Chief complaint: Chief [...] pain. 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 Previous Treatments: PT Patient History [...] osteochondritis dissecans Francisco Escoto, MS3 Orthopedic Surgery [facility] Patient seen and discussed with Dr. Lew [...] him about options for further treatment.[facility] 01-26-2022 NotePROCEDURE: XR ELBOW LT MIN 3 VIEWS COMPARISON: None. HISTORY: Medial epicondylitis FINDINGS: BONES:No acute fracture or dislocation. Degenerative changes with marginal osteophyte formation SOFT TISSUES:Negative. No visible soft tissue swelling. EFFUSION:Elbow joint effusion OTHER: Negative. IMPRESSION: Mild degenerative changes with elbow joint effusion Electronically authenticated by: MACARIO COE Date: 2022-01-26 19:59[facility] noteNo assessment information [facility] Work Phone: Evaluation note* Diagnosis Onset Date Resolution Status Fracture of right great toe acute [facility] Work Phone: History general Narrative - Reported* Type Description Date Surgical History fracture repair Surgical History leg fracture [facility] Other Summary Purpose Family History No Family [...] and content) DATE CREATED AUTHOR 04/24/2022 [facility] DATE CREATED AUTHOR AUTHOR'S ORGANIZ ATION 05/15/2023 [facility] DATE CREATED AUTHOR AUTHOR'S ORGANIZ ATION 10/23/2023 [facility] EPIC DATE CREATED AUTHOR AUTHOR'S ORGANIZ ATION 11/01/2023 [facility] REASON FOR VISIT (unrecogniz [...] BE BASED ON THE PRIMARY CLINICAL RECORDS. [email or web address] provides no warranty or guarantee of the accuracy or completeness of information in this document.
[2025-01-05 09:50] LABS: Hematocrit 43.3 % (42.0-54.0); Hemoglobin 14.9 g/dL (14.0-18.0); Immature Granulocytes Abs Auto 0.00 10^3/uL (0.00-0.03); Immature Granulocytes Pct Auto 0.0 % (0.0-0.5); Lymphocytes Absolute Auto 1.4 10^3/uL (1.2-3.8); Mean Corpuscular HGB Conc 34.4 g/dL (29.9-35.2); Mean Corpuscular Hemoglobin 31.2 pg (25.9-34.0); Mean Corpuscular Volume 90.8 fL (80.0-94.0); Platelet Count 174 10^3/uL (150-450); Red Blood Count 4.77 10^6/uL (4.70-6.10); White Blood Count 5.0 10^3/uL (4.0-11.0)
[2025-01-05 10:20] LABS: Alanine Aminotransferase 39 U/L (16-63); Albumin Globulin Ratio 1.2; Albumin Level 4.3 g/dL (3.4-5.0); Alkaline Phosphatase 54 U/L (46-116); Anion Gap 14.3; Aspartate Amino Transferase 27 U/L (15-37); Blood Urea Nitrogen 12.0 mg/dL (7.0-18.0); Calcium 9.0 mg/dL (8.5-10.1); Carbon Dioxide 27.7 mmol/L (21.0-32.0); Chloride 103 mmol/L (98-107); Cholesterol 190 mg/dL (<=200); Estimated GFR (African America >60 (>=60 mL/min/1.73m^2); Estimated GFR (Non-African Ame >60 (>=60 mL/min/1.73m^2); Free T3 3.52 pg/mL (2.18-3.98); Globulin 3.5 g/dL; Glucose 90 mg/dL (74-106); HDL Cholesterol 100 mg/dL (40-60); Potassium 5.0 mmol/L (3.5-5.1); Sodium 140 mmol/L (136-145); Thyroid Stimulating Hormone 0.981 uIU/mL (0.358-3.740); Total Protein 7.8 g/dL (6.4-8.2); Triglycerides 37 mg/dL (<=150); VLDL CHOLESTEROL 7.4 mg/dL
== END 2025-01-05 09:08 | disposition home or self-care (01) ==
LOC: LAB 09:08
PROVIDERS: PCP Family Medicine; Visit Provider Family Medicine
DX: Z00.00 Encounter for general adult medical examination without abnormal findings (principal)
CPT/HCPCS: 36415; 80053; 80061; 83036; 83525; 84436; 84443; 84481; 85025